=== PATIENT | female | born 1945 | race Caucasian/White ===

== ENCOUNTER 2018-09-17 12:01 | Inpatient (IN) | payer MEDICARE ==
[~2018-09-17] VITALS: Ht 175.3 cm; Wt 85.3 kg
[2018-09-17] VITALS (24 sets, daily range): BP systolic 85–142; BP diastolic 43–73
[2018-09-17] MEDS ORDERED: IV NS 0.9% 1,000 ML BAG IV ONE (12:30)
[2018-09-17 12:32] LABS: BILIRUBIN,URINE LARGE (NEGATIVE); BLOOD, URINE Large Ery/uL (NEGATIVE); COLOR,URINE Yellow (YELLOW); KETONES,URINE 15 (NEGATIVE); LEUKOCYTE ESTERASE ,URINE Small (NEGATIVE); NITRITE, URINE Negative (NEGATIVE); PH,URINE 5.5 (5.0-8.0); PROTEIN,URINE 100 mg/dl (NEGATIVE); UGLUCOSE >=1000 mg/dL (NEGATIVE)
[2018-09-17 12:34] LABS: BASOPHILS % (AUTO) 0.1 % (0.0-2.0); HEMATOCRIT 50 % (33-45); HEMOGLOBIN 15.3 g/dL (11.5-14.8); LYMPHOCYTES # (AUTO) 0.9 /CMM (0.8-4.8); LYMPHOCYTES % (AUTO) 3.2 % (20.0-44.0); MEAN CORPUSCULAR HGB CONC 31 g/dl (31.0-36.0); MEAN CORPUSCULAR VOLUME 95 fL (82-100); MONOCYTES # (AUTO) 0.9 /CMM (0.1-1.30); MONOCYTES % (AUTO) 3.2 % (2.0-12.0); NEUTROPHILS # (AUTO) 25.9 /CMM (1.8-8.9); NEUTROPHILS % (AUTO) 93.5 % (43.0-81.0); PLATELET COUNT (AUTO) 237 /CMM (150-450); RED BLOOD CELL COUNT(AUTO) 5.27 MIL/uL (4.0-5.2); WHITE BLOOD COUNT (AUTO) 27.7 K/uL (4.3-11.0)
[2018-09-17 12:35] LABS: APPEARANCE,URINE Turbid (CLEAR)
[2018-09-17 12:41] LABS: BACTERIA,URINE Many /HPF (None Seen); RBC,URINE 20-50 /HPF (0-2); SQUAMOUS EPITHELIAL CELL,UR Few /HPF (None Seen); WBC,URINE 50-80 /HPF (0-3)
[2018-09-17 12:55] LABS: ALANINE AMINOTRANSFERASE 22 U/L (12-78); ALBUMIN 2.3 g/dL (3.4-5.0); ALKALINE PHOSPHATASE 98 U/L (46-116); ASPARTATE AMINOTRANSFERASE 10 U/L (15-37); BILIRUBIN,DIRECT 0.5 mg/dL (0.0-0.2); BILIRUBIN,TOTAL 1.1 mg/dL (0.2-1.0); CALCIUM, SERUM 9.1 mg/dL (8.5-10.1); CARBON DIOXIDE 15 mmol/L (21-32); CHLORIDE 122 mmol/L (98-107); CREATININE 2.5 mg/dL (0.6-1.3); POTASSIUM 4.4 mmol/L (3.5-5.1); TOTAL PROTEIN, SERUM 7.5 g/dL (6.4-8.2)
[2018-09-17] MEDS ORDERED: PIPERACILLIN /TAZOBACTAM 3.375 G in IV D5W 50 ML IV ONE (13:00)
[2018-09-17] MEDS ORDERED: VANCOMYCIN 1 GM in IV D5W 250 ML IV ONE (13:00)
[2018-09-17 13:01] LABS: GLUCOSE 814 mg/dL (74-106); SODIUM SERUM 166 mmol/L (136-145); UREA NITROGEN, BLOOD 131 mg/dL (7-18)
[2018-09-17] MEDS ORDERED: IV LR 1000 ML 1,000 ML IV ONE (13:09)
[2018-09-17] MEDS ORDERED: INSULIN REGULAR, HUMAN 100 UNIT/ML 10 ML VIAL ONE (13:24)
[2018-09-17] MEDS ORDERED: INSULIN REGULAR, HUMAN 100 UNIT in IV NS 0.9% 99 ML IV ONE ×2 (13:30)
[2018-09-17] MEDS ORDERED: POTASSIUM CL. PREMIX PERIPHER. 50 ML ONE (13:40)
[2018-09-17] MEDS ORDERED: HYDR-4354 PO (13:44)
[2018-09-17] MEDS ORDERED: SERT100T PO (13:44)
[2018-09-17] MEDS ORDERED: INSU100I19 SQ (13:44)
[2018-09-17] MEDS ORDERED: LEVO100T PO (13:44)
[2018-09-17] MEDS ORDERED: RAMI2.5C2 PO (13:44)
[2018-09-17] MEDS: POTASSIUM CL. PREMIX PERIPHER. 50 ML IV SCH ×2 (13:45→15:16)
[2018-09-17] MEDS ORDERED: IV NS 0.9% 1,000 ML IV SCH (14:01)
[2018-09-17] MEDS ORDERED: ONDANSETRON HCL/PF 4 MG/2 ML VIAL IVP PRN (14:30)
[2018-09-17] MEDS ORDERED: ACETAMINOPHEN 650 MG/SUPP.RECT RC PRN (14:30)
[2018-09-17] MEDS ORDERED: FEE PK DOSING 1 MIN EA MC ONE (14:41)
[2018-09-17] MEDS: FAMOTIDINE/PF INJ 20 MG/2 ML VIAL IV SCH (15:16)
[2018-09-17] MEDS: BLOOD SUGAR DIAGNOSTIC 1 EACH STRIP IN SCH ×9 (15:30→23:12)
[2018-09-17] MEDS: MORPHINE SULFATE INJ 2 MG/ML DISP.SYRIN IV PRN (15:39)
[2018-09-17] MEDS ORDERED: INSULIN REGULAR, HUMAN 100 UNIT in IV NS 0.9% 99 ML IV PRN ×2 (16:00)
[2018-09-17 17:30] LABS: CALCIUM, SERUM 8.1 mg/dL (8.5-10.1); CARBON DIOXIDE 17 mmol/L (21-32); CREATININE 2.4 mg/dL (0.6-1.3); POTASSIUM 3.4 mmol/L (3.5-5.1)
[2018-09-17 17:36] LABS: CHLORIDE 127 mmol/L (98-107); GLUCOSE 518 mg/dL (74-106); SODIUM SERUM 165 mmol/L (136-145)
[2018-09-17 17:37] LABS: UREA NITROGEN, BLOOD 128 mg/dL (7-18)
[2018-09-17 17:39] LABS: MAGNESIUM 2.1 mg/dL (1.8-2.4); PHOSPHORUS 3.6 mg/dL (2.5-4.9)
[2018-09-17] MEDS ORDERED: PIPERACILLIN /TAZOBACTAM 3.375 G in IV D5W 100 ML IV SCH (18:00)
[2018-09-17] MEDS ORDERED: IV NS 0.9% 1,000 ML IV PRN (18:00)
[2018-09-17] MEDS ORDERED: PIPERACILLIN /TAZOBACTAM 3.375 G in IV D5W 50 ML IV SCH (18:00)
[2018-09-17] MEDS ORDERED: POTASSIUM CL. PREMIX PERIPHER. 50 ML IV SCH (18:03)
[2018-09-17] MEDS ORDERED: INSULIN REGULAR, HUMAN 100 UNIT/ML 3 ML VIAL ONE (21:15)
[2018-09-17 21:24] LABS: CALCIUM, SERUM 8.3 mg/dL (8.5-10.1); CARBON DIOXIDE 17 mmol/L (21-32); CREATININE 2.2 mg/dL (0.6-1.3); GLUCOSE 295 mg/dL (74-106); MAGNESIUM 2.1 mg/dL (1.8-2.4); PHOSPHORUS 2.7 mg/dL (2.5-4.9)
[2018-09-17 21:29] LABS: CHLORIDE 130 mmol/L (98-107); SODIUM SERUM 167 mmol/L (136-145); UREA NITROGEN, BLOOD 127 mg/dL (7-18)
[2018-09-17 22:55] LABS: ABG BASE EXCESS -5.5 mmol/L; ABG OXYGEN SATURATION 96.2 % (92.0-98.5); ABG PCO2 23.3 mmHg (35.0-45.0); ABG PH 7.462 (7.350-7.450); ABG PO2 84.3 mmHg (75.0-100.0); AaDO2 37.5 mmHg; COHb 0.7 % (0.5-1.5); MetHb 0.5 % (0.0-1.5); SITE, ABG Left Radial; VENT MODE, BG RA
[2018-09-17] MEDS ORDERED: IV 1/2NS 1000 ML 1,000 ML IV SCH (23:00)
[2018-09-18] VITALS (42 sets, daily range): BP systolic 91–119; BP diastolic 50–73
[2018-09-18] MEDS: BLOOD SUGAR DIAGNOSTIC 1 EACH STRIP IN SCH ×24 (00:04→23:11)
[2018-09-18 01:25] LABS: CALCIUM, SERUM 8.1 mg/dL (8.5-10.1); CARBON DIOXIDE 20 mmol/L (21-32); CREATININE 2.2 mg/dL (0.6-1.3); GLUCOSE 184 mg/dL (74-106); PHOSPHORUS 2.8 mg/dL (2.5-4.9); POTASSIUM 4.2 mmol/L (3.5-5.1)
[2018-09-18 01:31] LABS: CHLORIDE 132 mmol/L (98-107); SODIUM SERUM 169 mmol/L (136-145); UREA NITROGEN, BLOOD 125 mg/dL (7-18)
[2018-09-18] MEDS: IV D5/0.45 NACL 1,000 ML IV SCH ×2 (01:42→09:26)
[2018-09-18] MEDS: PIPERACILLIN /TAZOBACTAM 3.375 G in IV D5W 100 ML IV SCH ×2 (01:48→12:43)
[2018-09-18 04:30] LABS: BASOPHILS # (AUTO) 0.1 /CMM (0.0-0.2); BASOPHILS % (AUTO) 0.2 % (0.0-2.0); HEMATOCRIT 39 % (33-45); HEMOGLOBIN 12.7 g/dL (11.5-14.8); LYMPHOCYTES % (AUTO) 3.5 % (20.0-44.0); MEAN CORPUSCULAR HGB CONC 33 g/dl (31.0-36.0); MEAN CORPUSCULAR VOLUME 89 fL (82-100); MONOCYTES # (AUTO) 0.5 /CMM (0.1-1.30); MONOCYTES % (AUTO) 1.9 % (2.0-12.0); NEUTROPHILS # (AUTO) 26.8 /CMM (1.8-8.9); NEUTROPHILS % (AUTO) 94.4 % (43.0-81.0); PLATELET COUNT (AUTO) 181 /CMM (150-450); RED BLOOD CELL COUNT(AUTO) 4.38 MIL/uL (4.0-5.2); WHITE BLOOD COUNT (AUTO) 28.3 K/uL (4.3-11.0)
[2018-09-18 04:41] LABS: CALCIUM, SERUM 8.1 mg/dL (8.5-10.1); CARBON DIOXIDE 21 mmol/L (21-32); CREATININE 2.2 mg/dL (0.6-1.3); GLUCOSE 213 mg/dL (74-106); POTASSIUM 4.1 mmol/L (3.5-5.1)
[2018-09-18] MEDS: INSULIN REGULAR, HUMAN 100 UNIT in IV NS 0.9% 99 ML IV PRN ×2 (04:47)
[2018-09-18 04:57] LABS: THYROID STIMULATING HORMONE 4.292 uIU/mL (0.358-3.74)
[2018-09-18 05:16] LABS: CHLORIDE 132 mmol/L (98-107); SODIUM SERUM 167 mmol/L (136-145); UREA NITROGEN, BLOOD 124 mg/dL (7-18)
[2018-09-18] MEDS: FAMOTIDINE/PF INJ 20 MG/2 ML VIAL IV SCH ×2 (09:26→18:26)
[2018-09-18] MEDS: CLOTRIMAZOLE 1% 15 GM TUBE TP SCH ×2 (09:27→18:26)
[2018-09-18 11:08] LABS: CALCIUM, SERUM 7.6 mg/dL (8.5-10.1); CARBON DIOXIDE 19 mmol/L (21-32); CREATININE 2.2 mg/dL (0.6-1.3); GLUCOSE 199 mg/dL (74-106); PHOSPHORUS 3.1 mg/dL (2.5-4.9); POTASSIUM 3.9 mmol/L (3.5-5.1)
[2018-09-18 11:11] LABS: CHLORIDE 133 mmol/L (98-107); SODIUM SERUM 167 mmol/L (136-145); UREA NITROGEN, BLOOD 123 mg/dL (7-18)
[2018-09-18] MEDS: VANCOMYCIN 0.75 GM in IV D5W 250 ML IV SCH (12:43)
[2018-09-18] MEDS: IV D5W 1,000 ML IV PRN ×2 (15:02→23:11)
[2018-09-18 15:05] LABS: CALCIUM, SERUM 7.1 mg/dL (8.5-10.1); CARBON DIOXIDE 19 mmol/L (21-32); CHLORIDE 125 mmol/L (98-107); CREATININE 2.2 mg/dL (0.6-1.3); MAGNESIUM 1.8 mg/dL (1.8-2.4); POTASSIUM 3.7 mmol/L (3.5-5.1)
[2018-09-18 15:06] LABS: SODIUM SERUM 158 mmol/L (136-145)
[2018-09-18 15:07] LABS: GLUCOSE 423 mg/dL (74-106); UREA NITROGEN, BLOOD 114 mg/dL (7-18)
[2018-09-18 17:51] LABS: CALCIUM, SERUM 7.5 mg/dL (8.5-10.1); CARBON DIOXIDE 21 mmol/L (21-32); CREATININE 2.1 mg/dL (0.6-1.3); GLUCOSE 235 mg/dL (74-106); PHOSPHORUS 3.1 mg/dL (2.5-4.9); POTASSIUM 3.8 mmol/L (3.5-5.1)
[2018-09-18 17:54] LABS: SODIUM SERUM 165 mmol/L (136-145)
[2018-09-18 17:55] LABS: CHLORIDE 129 mmol/L (98-107); UREA NITROGEN, BLOOD 118 mg/dL (7-18)
[2018-09-18 21:22] LABS: POTASSIUM 3.6 mmol/L (3.5-5.1); SODIUM SERUM 163 mmol/L (136-145)
[2018-09-18 21:23] LABS: CALCIUM, SERUM 7.6 mg/dL (8.5-10.1); CARBON DIOXIDE 21 mmol/L (21-32); CHLORIDE 129 mmol/L (98-107); CREATININE 1.9 mg/dL (0.6-1.3); GLUCOSE 245 mg/dL (74-106); UREA NITROGEN, BLOOD 113 mg/dL (7-18)
[2018-09-18 21:24] LABS: PHOSPHORUS 3.2 mg/dL (2.5-4.9)
[2018-09-19] VITALS (24 sets, daily range): BP systolic 93–126; BP diastolic 38–77
[2018-09-19] MEDS: BLOOD SUGAR DIAGNOSTIC 1 EACH STRIP IN SCH ×11 (00:13→10:28)
[2018-09-19] MEDS: PIPERACILLIN /TAZOBACTAM 3.375 G in IV D5W 100 ML IV SCH ×2 (00:54→12:25)
[2018-09-19 05:06] LABS: CALCIUM, SERUM 7.3 mg/dL (8.5-10.1); CARBON DIOXIDE 22 mmol/L (21-32); GLUCOSE 240 mg/dL (74-106); POTASSIUM 3.5 mmol/L (3.5-5.1)
[2018-09-19 05:07] LABS: ALANINE AMINOTRANSFERASE 18 U/L (12-78); ALBUMIN 1.6 g/dL (3.4-5.0); ALKALINE PHOSPHATASE 69 U/L (46-116); ASPARTATE AMINOTRANSFERASE 18 U/L (15-37); BILIRUBIN,TOTAL 0.6 mg/dL (0.2-1.0); CREATININE 1.8 mg/dL (0.6-1.3); MAGNESIUM 1.8 mg/dL (1.8-2.4); PHOSPHORUS 2.9 mg/dL (2.5-4.9); TOTAL PROTEIN, SERUM 5.5 g/dL (6.4-8.2)
[2018-09-19 05:09] LABS: CHLORIDE 128 mmol/L (98-107); RED BLOOD CELL COUNT(AUTO) 3.91 MIL/uL (4.0-5.2); SODIUM SERUM 160 mmol/L (136-145); WHITE BLOOD COUNT (AUTO) 21.9 K/uL (4.3-11.0)
[2018-09-19 05:10] LABS: BASOPHILS % (AUTO) 0.1 % (0.0-2.0); HEMATOCRIT 35 % (33-45); HEMOGLOBIN 11.3 g/dL (11.5-14.8); LYMPHOCYTES % (AUTO) 4.3 % (20.0-44.0); MEAN CORPUSCULAR HGB CONC 32 g/dl (31.0-36.0); MEAN CORPUSCULAR VOLUME 89 fL (82-100); MONOCYTES % (AUTO) 3.4 % (2.0-12.0); NEUTROPHILS % (AUTO) 92.2 % (43.0-81.0); PLATELET COUNT (AUTO) 111 /CMM (150-450); UREA NITROGEN, BLOOD 100 mg/dL (7-18)
[2018-09-19 05:28] LABS: CREATININE, URINE 50.4 MG/DL (30.0-125.0)
[2018-09-19 05:52] LABS: URINE TOTAL PROTEIN 64.5 mg/dL (0-11.9)
[2018-09-19 06:40] LABS: APPEARANCE,URINE SLIGHTLY CLOUDY (CLEAR); BLOOD, URINE 3+ Ery/uL (NEGATIVE); COLOR,URINE YELLOW (YELLOW); PH,URINE 5.5 (5.0-8.0); PROTEIN,URINE 1+ mg/dl (NEGATIVE); UGLUCOSE NEGATIVE (NEGATIVE)
[2018-09-19 06:41] LABS: BILIRUBIN,URINE NEGATIVE (NEGATIVE); KETONES,URINE NEGATIVE (NEGATIVE); LEUKOCYTE ESTERASE ,URINE 1+ (NEGATIVE); NITRITE, URINE NEGATIVE (NEGATIVE); UROBILINOGEN,URINE 0.2 EU/dL (0.2)
[2018-09-19 06:42] LABS: BACTERIA,URINE Few /HPF (None Seen); SQUAMOUS EPITHELIAL CELL,UR Few /HPF (None Seen); URIC ACID CRYSTALS,URINE Moderate /HPF (None Seen); WBC,URINE 21-50 /HPF (0-3)
[2018-09-19] MEDS: IV D5W 1,000 ML IV PRN ×2 (06:49→15:00)
[2018-09-19] MEDS: CLOTRIMAZOLE 1% 15 GM TUBE TP SCH ×2 (08:31→17:16)
[2018-09-19] MEDS: FAMOTIDINE/PF INJ 20 MG/2 ML VIAL IV SCH ×2 (08:31→17:15)
[2018-09-19] MEDS: INSULIN REGULAR, HUMAN 100 UNIT in IV NS 0.9% 99 ML IV PRN ×2 (08:57)
[2018-09-19] MEDS ORDERED: DEXTROSE 50%-WATER 50 ML DISP.SYRIN IV PRN (09:00)
[2018-09-19] MEDS ORDERED: INSULIN GLARGINE, 100 UNIT/ML CARTRIDGE SQ ONE (09:30)
[2018-09-19 12:15] LABS: EOSINOPHIL,URINE None Seen
[2018-09-19] MEDS: BLOOD SUGAR DIAGNOSTIC 1 EACH STRIP VI SCH ×2 (12:25→17:22)
[2018-09-19] MEDS: VANCOMYCIN 0.75 GM in IV D5W 250 ML IV SCH ×2 (12:31→14:13)
[2018-09-19] MEDS: INSULIN REGULAR, HUMAN 100 UNIT/ML 3 ML VIAL SQ PRN ×2 (12:31→17:20)
[2018-09-19 13:10] LABS: ALANINE AMINOTRANSFERASE 19 U/L (12-78); ALBUMIN 1.7 g/dL (3.4-5.0); ALKALINE PHOSPHATASE 75 U/L (46-116); ASPARTATE AMINOTRANSFERASE 19 U/L (15-37); BILIRUBIN,TOTAL 0.7 mg/dL (0.2-1.0); CALCIUM, SERUM 7.5 mg/dL (8.5-10.1); CARBON DIOXIDE 18 mmol/L (21-32); CHLORIDE 125 mmol/L (98-107); CREATININE 1.7 mg/dL (0.6-1.3); GLUCOSE 253 mg/dL (74-106); POTASSIUM 3.6 mmol/L (3.5-5.1); TOTAL PROTEIN, SERUM 5.5 g/dL (6.4-8.2)
[2018-09-19 13:13] LABS: SODIUM SERUM 158 mmol/L (136-145); UREA NITROGEN, BLOOD 88 mg/dL (7-18)
[2018-09-19] MEDS ORDERED: PIPERACILLIN /TAZOBACTAM 3.375 G in IV D5W 100 ML IV SCH (21:00)
[2018-09-19] MEDS: CEFAZOLIN 1 GM in IV D5W 50 ML IV SCH (21:32)
[2018-09-19] MEDS: INSULIN GLARGINE, 100 UNIT/ML CARTRIDGE SQ SCH (22:32)
[2018-09-20] VITALS (19 sets, daily range): BP systolic 92–124; BP diastolic 47–66
[2018-09-20] MEDS: *INSULIN REGULAR(HUMULIN R)HUM 100 UNIT/ML VIAL SQ PRN ×2 (00:38→06:08)
[2018-09-20] MEDS: BLOOD SUGAR DIAGNOSTIC 1 EACH STRIP VI SCH ×4 (00:38→18:28)
[2018-09-20] MEDS: MORPHINE SULFATE INJ 2 MG/ML DISP.SYRIN IV PRN (00:39)
[2018-09-20] MEDS: IV D5W 1,000 ML IV PRN ×2 (01:14→08:51)
[2018-09-20] MEDS: CEFAZOLIN 1 GM in IV D5W 50 ML IV SCH ×3 (04:27→21:12)
[2018-09-20 04:58] LABS: BASOPHILS % (AUTO) 0.1 % (0.0-2.0); EOSINOPHILS % (AUTO) 0.3 % (0.0-6.0); HEMATOCRIT 31 % (33-45); HEMOGLOBIN 10.2 g/dL (11.5-14.8); LYMPHOCYTES # (AUTO) 0.8 /CMM (0.8-4.8); LYMPHOCYTES % (AUTO) 5.3 % (20.0-44.0); MEAN CORPUSCULAR HGB CONC 33 g/dl (31.0-36.0); MEAN CORPUSCULAR VOLUME 90 fL (82-100); MONOCYTES # (AUTO) 0.8 /CMM (0.1-1.30); MONOCYTES % (AUTO) 5.2 % (2.0-12.0); NEUTROPHILS # (AUTO) 13.1 /CMM (1.8-8.9); NEUTROPHILS % (AUTO) 89.1 % (43.0-81.0); PLATELET COUNT (AUTO) 81 /CMM (150-450); RED BLOOD CELL COUNT(AUTO) 3.47 MIL/uL (4.0-5.2); WHITE BLOOD COUNT (AUTO) 14.8 K/uL (4.3-11.0)
[2018-09-20 05:26] LABS: CALCIUM, SERUM 7.1 mg/dL (8.5-10.1); CARBON DIOXIDE 22 mmol/L (21-32); CHLORIDE 120 mmol/L (98-107); CREATININE 1.3 mg/dL (0.6-1.3); GLUCOSE 317 mg/dL (74-106); MAGNESIUM 1.7 mg/dL (1.8-2.4); PHOSPHORUS 2.2 mg/dL (2.5-4.9); POTASSIUM 3.2 mmol/L (3.5-5.1); SODIUM SERUM 153 mmol/L (136-145); UREA NITROGEN, BLOOD 62 mg/dL (7-18)
[2018-09-20] MEDS ORDERED: CEPHALEXIN MONOHYDRATE 500 MG CAPSULE PO ONE (06:24)
[2018-09-20 06:36] LABS: LYMPHOCYTES % (MANUAL) 3 % (16-48); MONOCYTES % (MANUAL) 4 % (0-11.0); NEUTROPHILS % (MANUAL) 93 (42-76)
[2018-09-20] MEDS: CLOTRIMAZOLE 1% 15 GM TUBE TP SCH ×2 (08:30→16:20)
[2018-09-20] MEDS: FAMOTIDINE/PF INJ 20 MG/2 ML VIAL IV SCH ×2 (08:30→16:19)
[2018-09-20] MEDS: POTASSIUM CL. PREMIX PERIPHER. 50 ML IV SCH ×4 (09:28→12:48)
[2018-09-20] MEDS: Magnesium 1GM/D5W 100ML PREMIX 100 ML IV SCH ×4 (10:13→14:54)
[2018-09-20] MEDS ORDERED: PNEUMOCOCCAL 23-VAL P-SAC VAC 0.5 ML VIAL SQ ONE (12:00)
[2018-09-20] MEDS: INSULIN REGULAR, HUMAN 100 UNIT/ML 3 ML VIAL SQ PRN ×2 (12:09→18:26)
[2018-09-20] MEDS ORDERED: Magnesium 1GM/D5W 100ML PREMIX 1 G in PREMIX 1 EA IV SCH (13:00)
[2018-09-20] MEDS: VANCOMYCIN 0.75 GM in IV D5W 250 ML IV SCH (13:46)
[2018-09-20] MEDS: Potassium Chloride 40 MEQ in IV D5W 1,000 ML IV PRN (14:21)
[2018-09-20] MEDS: POTASSIUM PHOSPHATE MM 7.5 MMOL in IV D5W 100 ML IV SCH ×2 (14:34→17:12)
[2018-09-20] MEDS: INSULIN GLARGINE, 100 UNIT/ML CARTRIDGE SQ SCH (21:22)
[2018-09-21] VITALS (7 sets, daily range): BP systolic 95–116; BP diastolic 43–65
[2018-09-21] MEDS: BLOOD SUGAR DIAGNOSTIC 1 EACH STRIP VI SCH ×5 (00:35→23:21)
[2018-09-21] MEDS: *INSULIN REGULAR(HUMULIN R)HUM 100 UNIT/ML VIAL SQ PRN ×3 (00:46→23:21)
[2018-09-21] MEDS: Potassium Chloride 40 MEQ in IV D5W 1,000 ML IV PRN (02:49)
[2018-09-21] MEDS: CEFAZOLIN 1 GM in IV D5W 50 ML IV SCH ×2 (04:51→14:20)
[2018-09-21 06:59] LABS: BASOPHILS % (AUTO) 0.1 % (0.0-2.0); EOSINOPHILS % (AUTO) 0.9 % (0.0-6.0); HEMATOCRIT 31 % (33-45); LYMPHOCYTES # (AUTO) 0.7 /CMM (0.8-4.8); LYMPHOCYTES % (AUTO) 6.3 % (20.0-44.0); MEAN CORPUSCULAR HGB CONC 32 g/dl (31.0-36.0); MEAN CORPUSCULAR VOLUME 89 fL (82-100); MONOCYTES # (AUTO) 0.8 /CMM (0.1-1.30); MONOCYTES % (AUTO) 7.2 % (2.0-12.0); NEUTROPHILS % (AUTO) 85.5 % (43.0-81.0); PLATELET COUNT (AUTO) 82 /CMM (150-450); RED BLOOD CELL COUNT(AUTO) 3.46 MIL/uL (4.0-5.2); WHITE BLOOD COUNT (AUTO) 11.7 K/uL (4.3-11.0)
[2018-09-21 07:16] LABS: CALCIUM, SERUM 6.7 mg/dL (8.5-10.1); CARBON DIOXIDE 20 mmol/L (21-32); CHLORIDE 112 mmol/L (98-107); CREATININE 0.9 mg/dL (0.6-1.3); MAGNESIUM 2.2 mg/dL (1.8-2.4); POTASSIUM 5.5 mmol/L (3.5-5.1); SODIUM SERUM 140 mmol/L (136-145); UREA NITROGEN, BLOOD 30 mg/dL (7-18)
[2018-09-21 07:20] LABS: GLUCOSE 351 mg/dL (74-106)
[2018-09-21 08:30] LABS: LYMPHOCYTES % (MANUAL) 3 % (16-48); NEUTROPHILS % (MANUAL) 88 (42-76)
[2018-09-21 08:31] LABS: EOSINOPHILS % (MANUAL) 2 % (0-4); MONOCYTES % (MANUAL) 7 % (0-11.0)
[2018-09-21] MEDS: FAMOTIDINE/PF INJ 20 MG/2 ML VIAL IV SCH ×2 (09:05→17:28)
[2018-09-21] MEDS: CLOTRIMAZOLE 1% 15 GM TUBE TP SCH ×2 (09:06→17:29)
[2018-09-21] MEDS ORDERED: IV D5W 1,000 ML IV PRN (11:12)
[2018-09-21] MEDS ORDERED: K PHOS NEUTRAL 250 MG TABLET PO ONE (12:00)
[2018-09-21] MEDS: MORPHINE SULFATE INJ 2 MG/ML DISP.SYRIN IV PRN (12:18)
[2018-09-21] MEDS: INSULIN REGULAR, HUMAN 100 UNIT/ML 3 ML VIAL SQ PRN ×2 (12:22→17:37)
[2018-09-21] MEDS ORDERED: IV NS 0.9% 250 ML IV ONE (12:30)
[2018-09-21] MEDS: VANCOMYCIN 0.75 GM in IV D5W 250 ML IV SCH (13:12)
[2018-09-21] MEDS: LACTOBACILLUS RHAMNOSUS GG 1 EACH CAP.SPRINK PO SCH (17:28)
[2018-09-21] MEDS: LEVOFLOXACIN (750 MG) 750 MG TABLET PO SCH (20:00)
[2018-09-21] MEDS: DOXYCYCLINE HYCLATE (100 MG) 100 MG TABLET PO SCH (21:20)
[2018-09-21] MEDS: INSULIN GLARGINE, 100 UNIT/ML CARTRIDGE SQ SCH (21:33)
[2018-09-22 04:00] VITALS: BP 106/54
[2018-09-22] MEDS: BLOOD SUGAR DIAGNOSTIC 1 EACH STRIP VI SCH ×3 (05:38→17:58)
[2018-09-22] MEDS: INSULIN REGULAR, HUMAN 100 UNIT/ML 3 ML VIAL SQ PRN ×2 (05:41→18:05)
[2018-09-22 06:15] LABS: CALCIUM, SERUM 6.9 mg/dL (8.5-10.1); CARBON DIOXIDE 21 mmol/L (21-32); CHLORIDE 111 mmol/L (98-107); CREATININE 0.8 mg/dL (0.6-1.3); GLUCOSE 201 mg/dL (74-106); POTASSIUM 3.5 mmol/L (3.5-5.1); SODIUM SERUM 143 mmol/L (136-145); UREA NITROGEN, BLOOD 17 mg/dL (7-18)
[2018-09-22 06:23] LABS: EOSINOPHILS % (AUTO) 0.9 % (0.0-6.0); HEMATOCRIT 29 % (33-45); HEMOGLOBIN 9.7 g/dL (11.5-14.8); LYMPHOCYTES # (AUTO) 0.6 /CMM (0.8-4.8); LYMPHOCYTES % (AUTO) 6.8 % (20.0-44.0); MEAN CORPUSCULAR HGB CONC 34 g/dl (31.0-36.0); MEAN CORPUSCULAR VOLUME 88 fL (82-100); MONOCYTES # (AUTO) 1.1 /CMM (0.1-1.30); MONOCYTES % (AUTO) 11.2 % (2.0-12.0); NEUTROPHILS # (AUTO) 7.7 /CMM (1.8-8.9); NEUTROPHILS % (AUTO) 81.1 % (43.0-81.0); PLATELET COUNT (AUTO) 111 /CMM (150-450); RED BLOOD CELL COUNT(AUTO) 3.27 MIL/uL (4.0-5.2); WHITE BLOOD COUNT (AUTO) 9.5 K/uL (4.3-11.0)
[2018-09-22 08:00] VITALS: BP 111/57
[2018-09-22] MEDS: DOXYCYCLINE HYCLATE (100 MG) 100 MG TABLET PO SCH ×2 (08:35→20:10)
[2018-09-22] MEDS: FAMOTIDINE/PF INJ 20 MG/2 ML VIAL IV SCH ×2 (08:35→18:06)
[2018-09-22] MEDS: LACTOBACILLUS RHAMNOSUS GG 1 EACH CAP.SPRINK PO SCH ×2 (08:36→18:05)
[2018-09-22] MEDS: *INSULIN REGULAR(HUMULIN R)HUM 100 UNIT/ML VIAL SQ PRN ×2 (08:40→12:19)
[2018-09-22] MEDS: Z GUARD REMEDY 2 OZ OINT TP PRN (08:42)
[2018-09-22] MEDS: CLOTRIMAZOLE 1% 15 GM TUBE TP SCH ×2 (10:41→18:02)
[2018-09-22] MEDS ORDERED: CT SWABBABLE VALVE TRANS SET 1 EA INFUS.SET MC ONE (15:32)
[2018-09-22] MEDS ORDERED: IOHEXOL-300 100 ML VIAL IV ONE (15:32)
[2018-09-22] MEDS ORDERED: IV NS 0.9% 250 ML IV ONE (15:32)
[2018-09-22 16:00] VITALS: BP 121/60
[2018-09-22 17:43] VITALS: BP 111/57
[2018-09-22 20:00] VITALS: BP 123/55
[2018-09-22] MEDS: LEVOFLOXACIN (750 MG) 750 MG TABLET PO SCH (20:11)
[2018-09-22] MEDS: INSULIN GLARGINE, 100 UNIT/ML CARTRIDGE SQ SCH (22:17)
[2018-09-23] MEDS: BLOOD SUGAR DIAGNOSTIC 1 EACH STRIP VI SCH ×4 (00:10→18:06)
[2018-09-23] MEDS: INSULIN REGULAR, HUMAN 100 UNIT/ML 3 ML VIAL SQ PRN ×5 (00:17→23:58)
[2018-09-23] MEDS: ACETAMINOPHEN 325 MG TABLET PO PRN ×2 (01:38→17:12)
[2018-09-23 04:00] VITALS: BP 111/60
[2018-09-23 06:47] LABS: CALCIUM, SERUM 7.6 mg/dL (8.5-10.1); CARBON DIOXIDE 23 mmol/L (21-32); CHLORIDE 113 mmol/L (98-107); CREATININE 0.8 mg/dL (0.6-1.3); GLUCOSE 148 mg/dL (74-106); POTASSIUM 3.4 mmol/L (3.5-5.1); SODIUM SERUM 146 mmol/L (136-145); UREA NITROGEN, BLOOD 13 mg/dL (7-18)
[2018-09-23 08:00] VITALS: BP 108/54
[2018-09-23] MEDS: LACTOBACILLUS RHAMNOSUS GG 1 EACH CAP.SPRINK PO SCH ×2 (08:36→17:12)
[2018-09-23] MEDS: CLOTRIMAZOLE 1% 15 GM TUBE TP SCH ×2 (08:36→17:51)
[2018-09-23] MEDS: FAMOTIDINE/PF INJ 20 MG/2 ML VIAL IV SCH ×2 (08:36→17:12)
[2018-09-23] MEDS: DOXYCYCLINE HYCLATE (100 MG) 100 MG TABLET PO SCH ×2 (08:36→21:06)
[2018-09-23] MEDS ORDERED: POTASSIUM CHLORIDE 20 MEQ TAB.PRT.SR PO SCH (10:00)
[2018-09-23] MEDS: MORPHINE SULFATE INJ 2 MG/ML DISP.SYRIN IV PRN (14:16)
[2018-09-23] MEDS ORDERED: POTASSIUM CHLORIDE 20 MEQ TAB.PRT.SR PO ONE (15:30)
[2018-09-23 16:00] VITALS: BP 107/39
[2018-09-23] MEDS: LEVOFLOXACIN 750 MG /D5W 150ML 750 MG in PREMIX 1 EA IV SCH (19:26)
[2018-09-23 20:00] VITALS: BP 121/65
[2018-09-23] MEDS: Potassium Chloride 40 MEQ in IV D5W 1,000 ML IV PRN (21:06)
[2018-09-23] MEDS: INSULIN GLARGINE, 100 UNIT/ML CARTRIDGE SQ SCH (21:07)
[2018-09-24] MEDS: ACETAMINOPHEN 325 MG TABLET PO PRN (00:02)
[2018-09-24] MEDS: BLOOD SUGAR DIAGNOSTIC 1 EACH STRIP VI SCH ×5 (00:04→23:03)
[2018-09-24] MEDS: MORPHINE SULFATE INJ 2 MG/ML DISP.SYRIN IV PRN ×2 (04:51→11:57)
[2018-09-24] MEDS: INSULIN REGULAR, HUMAN 100 UNIT/ML 3 ML VIAL SQ PRN ×3 (06:15→17:49)
[2018-09-24 06:50] LABS: CARBON DIOXIDE 24 mmol/L (21-32); CHLORIDE 105 mmol/L (98-107); CREATININE 0.8 mg/dL (0.6-1.3); GLUCOSE 217 mg/dL (74-106); POTASSIUM 3.8 mmol/L (3.5-5.1); SODIUM SERUM 137 mmol/L (136-145); UREA NITROGEN, BLOOD 9 mg/dL (7-18)
[2018-09-24 08:00] VITALS: BP 113/58
[2018-09-24] MEDS: DOXYCYCLINE HYCLATE (100 MG) 100 MG TABLET PO SCH ×2 (08:52→20:00)
[2018-09-24] MEDS: LACTOBACILLUS RHAMNOSUS GG 1 EACH CAP.SPRINK PO SCH ×2 (08:52→17:51)
[2018-09-24] MEDS: FAMOTIDINE/PF INJ 20 MG/2 ML VIAL IV SCH ×2 (08:53→17:51)
[2018-09-24] MEDS: CLOTRIMAZOLE 1% 15 GM TUBE TP SCH ×2 (09:01→17:51)
[2018-09-24] MEDS: GLUCERNA SHAKE 237 ML CAN PO SCH ×2 (12:49→17:51)
[2018-09-24 16:00] VITALS: BP 122/58
[2018-09-24] MEDS: Potassium Chloride 40 MEQ in IV D5W 1,000 ML IV PRN (16:31)
[2018-09-24] MEDS: LEVOFLOXACIN 750 MG /D5W 150ML 750 MG in PREMIX 1 EA IV SCH (18:53)
[2018-09-24 20:00] VITALS: BP 120/54
[2018-09-24 20:39] VITALS: BP 120/54
[2018-09-24] MEDS: INSULIN GLARGINE, 100 UNIT/ML CARTRIDGE SQ SCH (22:51)
[2018-09-24] MEDS: *INSULIN REGULAR(HUMULIN R)HUM 100 UNIT/ML VIAL SQ PRN (23:02)
[2018-09-25] MEDS: MORPHINE SULFATE INJ 2 MG/ML DISP.SYRIN IV PRN ×2 (01:12→10:00)
[2018-09-25] MEDS: BLOOD SUGAR DIAGNOSTIC 1 EACH STRIP VI SCH ×3 (05:56→17:29)
[2018-09-25] MEDS: INSULIN REGULAR, HUMAN 100 UNIT/ML 3 ML VIAL SQ PRN ×2 (05:58→23:40)
[2018-09-25] MEDS: Potassium Chloride 40 MEQ in IV D5W 1,000 ML IV PRN (06:10)
[2018-09-25 07:10] LABS: CALCIUM, SERUM 7.5 mg/dL (8.5-10.1); CARBON DIOXIDE 24 mmol/L (21-32); CHLORIDE 101 mmol/L (98-107); CREATININE 0.7 mg/dL (0.6-1.3); GLUCOSE 251 mg/dL (74-106); POTASSIUM 4.1 mmol/L (3.5-5.1); SODIUM SERUM 134 mmol/L (136-145); UREA NITROGEN, BLOOD 8 mg/dL (7-18)
[2018-09-25 08:00] VITALS: BP 127/63
[2018-09-25] MEDS: GLUCERNA SHAKE 237 ML CAN PO SCH ×3 (08:18→17:25)
[2018-09-25] MEDS: FAMOTIDINE/PF INJ 20 MG/2 ML VIAL IV SCH (08:27)
[2018-09-25] MEDS: DOXYCYCLINE HYCLATE (100 MG) 100 MG TABLET PO SCH ×2 (08:27→20:41)
[2018-09-25] MEDS: LACTOBACILLUS RHAMNOSUS GG 1 EACH CAP.SPRINK PO SCH ×2 (08:27→17:25)
[2018-09-25] MEDS: CLOTRIMAZOLE 1% 15 GM TUBE TP SCH ×2 (08:28→17:29)
[2018-09-25] MEDS ORDERED: LIDOCAINE 2%-EPI 1:100,000 30 ML VIAL TP ONE (11:00)
[2018-09-25] MEDS: *INSULIN REGULAR(HUMULIN R)HUM 100 UNIT/ML VIAL SQ PRN ×2 (12:15→17:31)
[2018-09-25 16:00] VITALS: BP 108/48
[2018-09-25 20:00] VITALS: BP 113/63
[2018-09-25] MEDS: LEVOFLOXACIN (750 MG) 750 MG TABLET PO SCH (20:06)
[2018-09-25] MEDS: INSULIN GLARGINE, 100 UNIT/ML CARTRIDGE SQ SCH (21:05)
[2018-09-26] MEDS: BLOOD SUGAR DIAGNOSTIC 1 EACH STRIP VI SCH ×4 (00:19→17:42)
[2018-09-26 04:00] VITALS: BP 130/60
[2018-09-26] MEDS: INSULIN REGULAR, HUMAN 100 UNIT/ML 3 ML VIAL SQ PRN (05:38)
[2018-09-26 07:10] LABS: CALCIUM, SERUM 7.9 mg/dL (8.5-10.1); CARBON DIOXIDE 27 mmol/L (21-32); CHLORIDE 103 mmol/L (98-107); CREATININE 0.7 mg/dL (0.6-1.3); GLUCOSE 217 mg/dL (74-106); POTASSIUM 4.1 mmol/L (3.5-5.1); SODIUM SERUM 137 mmol/L (136-145); UREA NITROGEN, BLOOD 10 mg/dL (7-18)
[2018-09-26 08:00] VITALS: BP_SYST 110; BP_SYST 140; BP_DIAS 56; BP_DIAS 80
[2018-09-26] MEDS: GLUCERNA SHAKE 237 ML CAN PO SCH ×3 (08:28→17:00)
[2018-09-26] MEDS: DOXYCYCLINE HYCLATE (100 MG) 100 MG TABLET PO SCH ×2 (09:07→20:57)
[2018-09-26] MEDS: LACTOBACILLUS RHAMNOSUS GG 1 EACH CAP.SPRINK PO SCH ×2 (09:07→18:08)
[2018-09-26] MEDS ORDERED: SILVER NITRATE APPLICATOR 1 EA BOX TP STA (10:34)
[2018-09-26] MEDS: MORPHINE SULFATE INJ 2 MG/ML DISP.SYRIN IV PRN (10:48)
[2018-09-26] MEDS: CLOTRIMAZOLE 1% 15 GM TUBE TP SCH ×2 (10:52→17:34)
[2018-09-26] MEDS: *INSULIN REGULAR(HUMULIN R)HUM 100 UNIT/ML VIAL SQ PRN (12:28)
[2018-09-26 16:00] VITALS: BP_SYST 118; BP_SYST 99; BP_DIAS 50; BP_DIAS 66
[2018-09-26] MEDS: Z GUARD REMEDY 2 OZ OINT TP PRN (17:59)
[2018-09-26 20:00] VITALS: BP 100/50
[2018-09-26] MEDS: LEVOFLOXACIN (750 MG) 750 MG TABLET PO SCH (20:57)
[2018-09-26] MEDS: INSULIN GLARGINE, 100 UNIT/ML CARTRIDGE SQ SCH (22:03)
[2018-09-27] MEDS: BLOOD SUGAR DIAGNOSTIC 1 EACH STRIP VI SCH ×3 (00:26→11:56)
[2018-09-27] MEDS: *INSULIN REGULAR(HUMULIN R)HUM 100 UNIT/ML VIAL SQ PRN ×2 (00:30→12:01)
[2018-09-27] MEDS: INSULIN REGULAR, HUMAN 100 UNIT/ML 3 ML VIAL SQ PRN (06:04)
[2018-09-27 06:41] LABS: BASOPHILS % (AUTO) 0.4 % (0.0-2.0); HEMATOCRIT 31 % (33-45); HEMOGLOBIN 10.3 g/dL (11.5-14.8); LYMPHOCYTES # (AUTO) 0.8 /CMM (0.8-4.8); MEAN CORPUSCULAR HGB CONC 34 g/dl (31.0-36.0); MEAN CORPUSCULAR VOLUME 87 fL (82-100); MONOCYTES # (AUTO) 0.7 /CMM (0.1-1.30); MONOCYTES % (AUTO) 9.6 % (2.0-12.0); NEUTROPHILS # (AUTO) 5.4 /CMM (1.8-8.9); PLATELET COUNT (AUTO) 333 /CMM (150-450); RED BLOOD CELL COUNT(AUTO) 3.55 MIL/uL (4.0-5.2)
[2018-09-27 07:00] LABS: CALCIUM, SERUM 7.6 mg/dL (8.5-10.1); CARBON DIOXIDE 28 mmol/L (21-32); CHLORIDE 101 mmol/L (98-107); CREATININE 0.7 mg/dL (0.6-1.3); GLUCOSE 182 mg/dL (74-106); MAGNESIUM 1.6 mg/dL (1.8-2.4); PHOSPHORUS 3.5 mg/dL (2.5-4.9); SODIUM SERUM 137 mmol/L (136-145); UREA NITROGEN, BLOOD 12 mg/dL (7-18)
[2018-09-27 08:00] VITALS: BP_SYST 114; BP_SYST 97; BP_DIAS 52; BP_DIAS 64
[2018-09-27] MEDS: DOXYCYCLINE HYCLATE (100 MG) 100 MG TABLET PO SCH (09:18)
[2018-09-27] MEDS: LACTOBACILLUS RHAMNOSUS GG 1 EACH CAP.SPRINK PO SCH (09:18)
[2018-09-27] MEDS: GLUCERNA SHAKE 237 ML CAN PO SCH ×2 (09:21→12:18)
[2018-09-27] MEDS: CLOTRIMAZOLE 1% 15 GM TUBE TP SCH (09:22)
[2018-09-27] MEDS ORDERED: LEVO750T21 PO (09:56)
[2018-09-27] MEDS ORDERED: CLOT15CR35 TP (09:56)
[2018-09-27] MEDS ORDERED: LACT1CAP72 PO (09:56)
[2018-09-27] MEDS ORDERED: DOXY100T2 PO (09:56)
[2018-09-27] MEDS ORDERED: NUT.237L45 PO (09:56)
[2018-09-27] MEDS: Magnesium 1GM/D5W 100ML PREMIX 100 ML IV SCH ×3 (10:15→12:22)
[2018-09-27] MEDS: MORPHINE SULFATE INJ 2 MG/ML DISP.SYRIN IV PRN (11:14)
== END 2018-09-27 15:30 | DRG 853 ==
LOC: EDBD 12:01 → ER 12:01 → ICU 14:12 → TELE-TD 09-20 16:40 → MEDSG1 09-21 12:24
PROVIDERS: ADMIT Registered Nurse; ATTEND Internal Medicine
PROC: 02HV33Z Insertion of Infusion Device into Superior Vena Cava, Percutaneous Approach (ICD-10-PCS; 2018-09-17)
PROC: B548ZZA Ultrasonography of Superior Vena Cava, Guidance (ICD-10-PCS; 2018-09-17)
PROC: 0JBL0ZZ Excision of Right Upper Leg Subcutaneous Tissue and Fascia, Open Approach (ICD-10-PCS; 2018-09-25)
PROC: 0JB90ZZ Excision of Buttock Subcutaneous Tissue and Fascia, Open Approach (ICD-10-PCS; principal; 2018-09-26)
DX: A41.59 Other Gram-negative sepsis (principal); R65.21 Severe sepsis with septic shock; E11.10 Type 2 diabetes mellitus with ketoacidosis without coma; G92 Toxic encephalopathy; E43 Unspecified severe protein-calorie malnutrition; N17.0 Acute kidney failure with tubular necrosis; L89.213 Pressure ulcer of right hip, stage 3; E87.0 Hyperosmolality and hypernatremia; R17 Unspecified jaundice; N39.0 Urinary tract infection, site not specified; E87.2 Acidosis; E11.22 Type 2 diabetes mellitus with diabetic chronic kidney disease; B96.1 Klebsiella pneumoniae [K. pneumoniae] as the cause of diseases classified elsewhere; E86.0 Dehydration; E87.6 Hypokalemia; N18.9 Chronic kidney disease, unspecified; R62.7 Adult failure to thrive; Z87.440 Personal history of urinary (tract) infections; E88.09 Other disorders of plasma-protein metabolism, not elsewhere classified; Z73.6 Limitation of activities due to disability; S31.829A Unspecified open wound of left buttock, initial encounter; S31.819A Unspecified open wound of right buttock, initial encounter; X58.XXXA Exposure to other specified factors, initial encounter; Y93.9 Activity, unspecified; Y92.129 Unspecified place in nursing home as the place of occurrence of the external cause; Z68.27 Body mass index [BMI] 27.0-27.9, adult; R19.00 Intra-abdominal and pelvic swelling, mass and lump, unspecified site; Z79.4 Long term (current) use of insulin
CPT/HCPCS: 36415; 36569; 36600; 70450-TC; 71045-TC; 71260-TC; 72170-TC; 76770-TC; 76856-TC; 80048-TC; 80053-TC; 80061-TC; 80076-TC; 80202-TC; 81000-TC; 82550-TC; 82570-TC; 82803-TC; 82947-TC; 82962-TC; 83605-TC; 83735-TC; 84100-TC; 84155-TC; 84300-TC; 84443-TC; 84484-TC; 85025-TC; 85730-TC; 87040-TC; 87070-TC; 87081-TC; 87086-TC; 87186-TC; 90732; 92526; 92611-TC; 93307-TC; A4216; A6253; A6402; A6403; C1751; G0378; J0690; J1815; J1956; J2270; J2543; J3370; J3475; J3480; J3490; J7030; J7042; J7050; J7060; J7070; J7120; Q9967

== ENCOUNTER 2018-12-17 07:56 | Inpatient (IN) | payer MEDICARE ==
[~2018-12-17] VITALS: Ht 167.6 cm; Wt 78.9 kg
[2018-12-17] VITALS (23 sets, daily range): BP systolic 87–112; BP diastolic 41–61
[~2018-12-17 07:56] MED LIST: CLOT15CR35 TP; DOXY100T2 PO; HYDR-4354 PO; INSU100I19 SQ; LACT1CAP72 PO; LEVO100T PO; LEVO750T21 PO; NUT.237L45 PO; RAMI2.5C2 PO; SERT100T PO
[2018-12-17] MEDS ORDERED: VANCOMYCIN 1 GM in IV D5W 250 ML IV ONE (08:00)
[2018-12-17] MEDS ORDERED: PIPERACILLIN /TAZOBACTAM 3.375 G in IV D5W 50 ML IV ONE (08:00)
[2018-12-17] MEDS ORDERED: IV NS 0.9% 1,000 ML BAG IV ONE (08:00)
--- NOTE | 2018-12-17 08:00 | NUR ---
73 YEAR OLD FEMALE [id number] FROM [facility] FOR LOW BLOOD PRESSURE. PATIENT IS ALERT AND ORIENTED X3. SHE IS ABLE TO MAKE THINGS KNOWN AND VERBALIZE NEEDS. BREATHING EVEN AND UNLABORED WITH NO DISTRESS NOTED. SKIN WARM TO TOUCH. NOTED WITH F/C AND IV LEFT AC 18G FROM RA. AWAITING TO BE SEEN BY
[2018-12-17 08:23] LABS: CALCIUM, SERUM 7.7 mg/dL (8.5-10.1); CARBON DIOXIDE 26 mmol/L (21-32); CHLORIDE 102 mmol/L (98-107); CREATININE 2.2 mg/dL (0.6-1.3); GLUCOSE 74 mg/dL (74-106); POTASSIUM 4.3 mmol/L (3.5-5.1); SODIUM SERUM 136 mmol/L (136-145); UREA NITROGEN, BLOOD 45 mg/dL (7-18)
[2018-12-17 08:24] LABS: BASOPHILS # (AUTO) 0.1 /CMM (0.0-0.2); BASOPHILS % (AUTO) 0.6 % (0.0-2.0); EOSINOPHILS % (AUTO) 0.1 % (0.0-6.0); LYMPHOCYTES # (AUTO) 0.9 /CMM (0.8-4.8); MEAN CORPUSCULAR HGB CONC 31 g/dl (31.0-36.0); MEAN CORPUSCULAR VOLUME 74 fL (82-100); MONOCYTES # (AUTO) 1.2 /CMM (0.1-1.30); MONOCYTES % (AUTO) 5.2 % (2.0-12.0); NEUTROPHILS % (AUTO) 90.1 % (43.0-81.0); PLATELET COUNT (AUTO) 498 /CMM (150-450); RED BLOOD CELL COUNT(AUTO) 2.24 MIL/uL (4.0-5.2); WHITE BLOOD COUNT (AUTO) 22.2 K/uL (4.3-11.0)
[2018-12-17 08:26] LABS: HEMATOCRIT 17 % (33-45); HEMOGLOBIN 5.2 g/dL (11.5-14.8)
[2018-12-17 08:37] LABS: ALANINE AMINOTRANSFERASE 17 U/L (12-78); ALKALINE PHOSPHATASE 87 U/L (46-116); ASPARTATE AMINOTRANSFERASE 39 U/L (15-37); BILIRUBIN,DIRECT 0.1 mg/dL (0.0-0.2); BILIRUBIN,TOTAL 0.2 mg/dL (0.2-1.0); TOTAL PROTEIN, SERUM 5.9 g/dL (6.4-8.2)
[2018-12-17 08:39] LABS: ALBUMIN 1.1 g/dL (3.4-5.0)
[2018-12-17 08:44] LABS: APPEARANCE,URINE Turbid (CLEAR); BILIRUBIN,URINE Negative (NEGATIVE); BLOOD, URINE Moderate Ery/uL (NEGATIVE); COLOR,URINE Yellow (YELLOW); KETONES,URINE Negative (NEGATIVE); LEUKOCYTE ESTERASE ,URINE Large (NEGATIVE); NITRITE, URINE Negative (NEGATIVE); PROTEIN,URINE 100 mg/dl (NEGATIVE); UGLUCOSE Negative (NEGATIVE); UROBILINOGEN,URINE 0.2 EU/dL (0.2)
[2018-12-17 08:46] LABS: BACTERIA,URINE Moderate /HPF (None Seen); SQUAMOUS EPITHELIAL CELL,UR Few /HPF (None Seen); WBC,URINE TOO NUMEROUS TO COUN /HPF (0-3)
--- NOTE | 2018-12-17 09:03 | NUR ---
PANEL ON-CALL PAGED
[2018-12-17] MEDS ORDERED: IV NS 0.9% 1,000 ML IV ONE (09:30)
--- NOTE | 2018-12-17 09:33 | NUR ---
PANEL ON-CALL PAGED
[2018-12-17 09:53] LABS: LYMPHOCYTES % (MANUAL) 9 % (16-48); MONOCYTES % (MANUAL) 7 % (0-11.0); MYELOCYTES % 1 % (0-0); NEUTROPHILS % (MANUAL) 83 (42-76)
[2018-12-17] MEDS ORDERED: BISA10SU61 RC (10:12)
[2018-12-17] MEDS ORDERED: TYL2T PO (10:12)
[2018-12-17] MEDS ORDERED: MULT-661 PO (10:12)
[2018-12-17] MEDS ORDERED: NA P133E RC (10:12)
[2018-12-17] MEDS ORDERED: PROT946L PO (10:12)
[2018-12-17] MEDS ORDERED: PREG75CA PO (10:12)
[2018-12-17] MEDS ORDERED: ASCO500T9 PO (10:12)
--- NOTE | 2018-12-17 10:19 | NUR ---
BLOOD TRANSFUSION STARTED SECONDARY RN SHERIDAN VERIFIED PATIENT
--- NOTE | 2018-12-17 10:20 | NUR ---
GOT BED 263
--- NOTE | 2018-12-17 10:32 | NUR ---
REPORT GIVEN TO EDWIN FOR CONTINUITY OF CARE
--- NOTE | 2018-12-17 11:03 | NUR ---
NURSING FARM MORTGAGE AGENT NOTIFIED FOR PICC LINE INSERTION FOR PATIENT
--- NOTE | 2018-12-17 11:25 | NUR ---
RN INITIAL NOTES RECEIVED PT AWAKE, A/OX1-2. ON ROOM AIR. NO RESPIRATORY DISTRESS NOTED. NO SOB NOTED. DENIES ANY PAIN. PT PLACED COMFORTABLY TO BED. CONNECTED TO MONITOR. LAC #[address] 1 UNIT OF PRBC, STARTED IN ER, INFUSING. NO TRANSFUSION REACTION NOTED. FC IN PLACE. YELLOW CLOUDY URINE NOTED. SKIN ASSESSMENT DONE, PICTURES TAKEN AND PLACED IN THE CHART. FOR PICC IN INSERTION. CONSENT OBTAINED FROM PT. BRITTNEY RODRIGUEZ NP AWARE OF ADMISSION. AWAITING FOR ORDERS. WILL MONITOR.
[2018-12-17] MEDS ORDERED: Z GUARD REMEDY 2 OZ OINT TP PRN ×2 (12:00→14:00)
[2018-12-17] MEDS ORDERED: DEXTROSE 50%-WATER 50 ML DISP.SYRIN IV PRN (12:00)
[2018-12-17] MEDS ORDERED: MAGNESIUM HYDROXIDE 30 ML UDC PO PRN (12:00)
[2018-12-17] MEDS ORDERED: MAG HYDROX/AL HYDROX/SIMETH 30 ML UDC PO PRN (12:00)
[2018-12-17] MEDS ORDERED: ONDANSETRON HCL/PF 4 MG/2 ML VIAL IVP PRN (12:00)
[2018-12-17] MEDS: IV NS 0.9% 1,000 ML IV PRN (12:29)
[2018-12-17] MEDS: BLOOD SUGAR DIAGNOSTIC 1 EACH STRIP IN SCH ×3 (12:37→21:34)
[2018-12-17] MEDS ORDERED: FEE PK DOSING 1 MIN EA MC ONE (12:58)
[2018-12-17] MEDS: PIPERACILLIN /TAZOBACTAM 2.25 G in IV D5W 50 ML IV SCH ×2 (14:04→17:03)
[2018-12-17 14:39] LABS: IRON, SERUM 11 ug/dl (50-175); TOTAL IRON BINDING CAPACITY 107 ug/dl (250-450)
[2018-12-17 14:49] LABS: FERRITIN 506 ng/mL (8-388)
[2018-12-17] MEDS: LACTOBACILLUS RHAMNOSUS GG 1 EACH CAP.SPRINK PO SCH (16:29)
[2018-12-17] MEDS: NEXIUM 40 MG VIAL IV SCH (16:29)
--- NOTE | 2018-12-17 18:36 | NUR ---
RN CLOSING NOTES PT REMAINS A/OX1-2. NO SOB NOTED. DENIES ANY PAIN. TRANSFUSED 2 UNITS OF PRBC. NO TRANSFUSION REACTION NOTED. VITAL SIGNS WNL. AWAITING FOR RPT HGB/HCT RESULT. KEPT CLEAN AND DRY. REPOSITIONED Q2. BLE ELEVATED. WILL ENDORSE FOR CONTINUITY OF CARE
[2018-12-17 18:51] LABS: HEMOGLOBIN 7.4 g/dL (11.5-14.8)
--- NOTE | 2018-12-17 19:45 | NUR ---
RN NOTES RECEIVED PATIENT ASLEEP ON BED. AOX3, ABLE TO VERBALIZED UNDERSTANDING AND CARE. NO ACUTE RESPIRATORY DISTRESS ON ROOM AIR SATURATION 96% NSR ON TELE MONITOR. IV SITE ON LAC G 18 AND JOSE RAFAEL PICC LINE INTACT AND PATTERN WITH GOOD BLOOD RETURN. BP WNL. ALBUMIN 1.1 TODAY. LATEST HGB 7.4 AFTER 2 UNITS PRBC GIVEN.NO ASE SHOWN. KEPT PT CLEAN AND DRY. CALL LIGHT KEPT WITHIN EASY REACH INSTRUCTION PROVIDED.
[2018-12-17] MEDS: PREGABALIN 25 MG CAPSULE PO SCH (21:25)
[2018-12-17] MEDS: SUCRALFATE 1 G TABLET PO SCH (21:25)
[2018-12-17] MEDS: INSULIN GLARGINE, 100 UNIT/ML CARTRIDGE SQ SCH (21:34)
[2018-12-18] VITALS (15 sets, daily range): BP systolic 90–110; BP diastolic 43–53
[2018-12-18] MEDS: PIPERACILLIN /TAZOBACTAM 2.25 G in IV D5W 50 ML IV SCH ×4 (00:13→17:18)
[2018-12-18] MEDS: IV NS 0.9% 1,000 ML IV PRN ×2 (02:58→17:47)
[2018-12-18 04:49] LABS: BASOPHILS # (AUTO) 0.1 /CMM (0.0-0.2); BASOPHILS % (AUTO) 0.5 % (0.0-2.0); EOSINOPHILS % (AUTO) 0.9 % (0.0-6.0); HEMATOCRIT 23 % (33-45); HEMOGLOBIN 7.4 g/dL (11.5-14.8); LYMPHOCYTES # (AUTO) 0.7 /CMM (0.8-4.8); LYMPHOCYTES % (AUTO) 4.3 % (20.0-44.0); MEAN CORPUSCULAR HGB CONC 32 g/dl (31.0-36.0); MEAN CORPUSCULAR VOLUME 78 fL (82-100); MONOCYTES % (AUTO) 5.9 % (2.0-12.0); NEUTROPHILS # (AUTO) 14.4 /CMM (1.8-8.9); NEUTROPHILS % (AUTO) 88.4 % (43.0-81.0); PLATELET COUNT (AUTO) 484 /CMM (150-450); RED BLOOD CELL COUNT(AUTO) 3.01 MIL/uL (4.0-5.2); WHITE BLOOD COUNT (AUTO) 16.3 K/uL (4.3-11.0)
[2018-12-18 05:09] LABS: ALANINE AMINOTRANSFERASE 14 U/L (12-78); ALKALINE PHOSPHATASE 81 U/L (46-116); BILIRUBIN,DIRECT 0.2 mg/dL (0.0-0.2); BILIRUBIN,TOTAL 0.4 mg/dL (0.2-1.0); CALCIUM, SERUM 7.4 mg/dL (8.5-10.1); CARBON DIOXIDE 22 mmol/L (21-32); CHLORIDE 109 mmol/L (98-107); CREATININE 1.6 mg/dL (0.6-1.3); GLUCOSE 117 mg/dL (74-106); MAGNESIUM 1.8 mg/dL (1.8-2.4); PHOSPHORUS 4.2 mg/dL (2.5-4.9); POTASSIUM 4.3 mmol/L (3.5-5.1); SODIUM SERUM 141 mmol/L (136-145); TOTAL PROTEIN, SERUM 5.6 g/dL (6.4-8.2); UREA NITROGEN, BLOOD 38 mg/dL (7-18)
[2018-12-18 05:10] LABS: CHOLESTEROL 75 mg/dL (<200); HDL CHOLESTEROL 30 mg/dL (40-60); LDL 30 mg/dL (0-99); THYROID STIMULATING HORMONE 0.591 uIU/mL (0.358-3.74); TRIGLYCERIDES 86 mg/dL (30-150)
[2018-12-18 05:10] LABS: OCCULT BLOOD STOOL NEGATIVE (NEGATIVE)
[2018-12-18 05:24] LABS: ASPARTATE AMINOTRANSFERASE 23 U/L (15-37)
[2018-12-18 05:30] LABS: ALBUMIN 1.1 g/dL (3.4-5.0)
--- NOTE | 2018-12-18 07:15 | NUR ---
RN INITIAL NOTES RECEIVED PT ASLEEP, EASILY AROUSABLE. ON ROOM AIR. NO RESPIRATORY DISTRESS NOTED. NO SIGNS OF PAIN NOTED. JOSE RAFAEL PICC IN PLACE. IVF INFUSING. FC IN PLACE. NO HEMATURIA NOTED. NO SIGNS OF ACTIVE BLEEDING NOTED. VS WNL. WILL CONTINUE TO MONITOR
--- NOTE | 2018-12-18 07:15 | NUR ---
RN NOTES PATIENT ASLEEP WELL ON BED. BREATHING EVEN AND UNLABORED. DENIES PAIN. AOX3 VERBALIZED NEEDS. NO ACTIVE BLEEDING NOTED DESPITE OF LOW HGB. BM X1 TODAY WITH BROWN SOFT. STOOL. AFEBRILE. VSS. IVF NS @ 75 ML.HR ONGOING. IV SITE REMAINED INTACT AND PATENT. INCONTINENT CARE RENDERED, ASSISTED WITH TURNING AND REPOSITIONING. KEPT PT CLEAN AND DRY. ENDORSED CONTINUITY OF CARE TO AM NURSE. ALBUMIN 1.1 REPORTED ENDORSED TO AM SHIFT.
--- NOTE | 2018-12-18 07:42 | NUR ---
WOUND CARE CONSULT PATIENT SEEN AND SKIN INTEGRITY ASSESSMENT DONE. PLEASE SEE COUNTY JUDGE ASSESSMENT IN PCS FOR TODAY. RECOMMEND SURGICAL CONSULT FOR STAGE [address] Melania VILLAFUERTE NOTIFIED OF THE CONSULT. PATIENT WITH ELIJAH AT 14, PATIENT IS ABLE TO ASSIST WITH TURNING, BUT DOES NEED PROMPTING. RECOMMEND ISOFLEX MG SPECIALTY BED FOR TREATMENT TO BE PLACED WHEN AVAILABLE. ALL TREATMENT PLANS DISCUSSED WITH NURSING STAFF AT THE BEDSIDE. WILL SEE PRN. Addendum: 12/18/18 at 0747 by STEPHIE BATISTA WNDNU Amended: Links added.
[2018-12-18] MEDS ORDERED: HYDROGEL DRESSING 90 GM TUBE TP PRN (08:00)
[2018-12-18] MEDS: LACTOBACILLUS RHAMNOSUS GG 1 EACH CAP.SPRINK PO SCH ×2 (08:12→17:16)
[2018-12-18] MEDS: MULTIVITAMINS,THERAGRAN 1 UDTAB TABLET PO SCH (08:12)
[2018-12-18] MEDS: SUCRALFATE 1 G TABLET PO SCH ×4 (08:12→21:19)
[2018-12-18] MEDS: ASCORBIC ACID 500 MG TABLET PO SCH (08:12)
[2018-12-18] MEDS: SERTRALINE HCL 50 MG TABLET PO SCH (08:12)
[2018-12-18] MEDS: BLOOD SUGAR DIAGNOSTIC 1 EACH STRIP IN SCH ×4 (08:13→21:19)
[2018-12-18] MEDS: LEVOTHYROXINE SODIUM 100 MCG TABLET PO SCH (08:13)
[2018-12-18] MEDS: NEXIUM 40 MG VIAL IV SCH ×2 (08:13→17:16)
[2018-12-18] MEDS: RAMIPRIL 1.25 MG CAPSULE PO SCH (08:13)
[2018-12-18] MEDS: VANCOMYCIN 1 GM in IV D5W 250 ML IV SCH (09:02)
[2018-12-18] MEDS: HYDROGEL DRESSING 90 GM TUBE TP SCH (09:03)
[2018-12-18] MEDS: CLOTRIMAZOLE 1% 15 GM TUBE TP SCH ×2 (09:03→17:22)
--- NOTE | 2018-12-18 10:05 | NUR ---
RN NOTES PT TRANSFERRED TO ROOM 306. PT A/O. ON ROOM AIR. NO SOB NOTED. DENIES ANY PAIN. BEDSIDE REPORT GIVEN TO RAVI THOMPSON. TOOK OVER PT'S CARE. JAY NOTIFIED TO SWITCH BED TO ISOFLEX.
--- NOTE | 2018-12-18 10:10 | NUR ---
MAINSPRING TORQUE TESTER NOTES RECEIVED PT FROM ICU NURSE EDWIN RN VIA BED, PT IS AWAKE, ALERT AND VERBALLY RESPONSIVE, DENIES PAIN, NOT IN DISTRESS, IV FLUIDS INFUSING, F/C DRAINING WELL WITH CLEAR YELLOW URINE, CALL LIGHT WITHIN REACH, PT SEEN BY DR. LYNN, PLAN OF CARE DISCUSSED WITH PT, VERBALIZED UNDERSTANDING, KEPT WARM AND COMFORTABLE IN BED.
--- NOTE | 2018-12-18 12:36 | NUR ---
LIQUEFACTION SUPERVISOR NOTES PT IN BED, RESTING, EASY TO AROUSE, ALERT AND ORIENTED, SEEN BY DR. LYNN, CALL LIGHT WITHIN REACH, KEPT COMFORTABLE.
--- NOTE | 2018-12-18 15:45 | NUR ---
STAFF INTERNIST OFFICE BASED ONLY NOTES SWALLOW SCREEN PERFORMED, PT PASSED, DR. MARIN INFORMED, DIET ORDERED.
[2018-12-18] MEDS: INSULIN REGULAR, HUMAN 100 UNIT/ML 3 ML VIAL SQ PRN ×2 (17:53→21:56)
--- NOTE | 2018-12-18 18:09 | NUR ---
MAT WORKER NOTES PT IN BED, AWAKE, ALERT AND ORIENTED, EATING DINNER, TOLERATING WELL, NO SWALLOWING PROBLEM NOTED, DENIES PAIN, NOT IN DISTRESS, PM MEDS GIVEN, SEEN BY DR. MARIN, ALL NEEDS ATTENDED.
--- NOTE | 2018-12-18 19:50 | NUR ---
SACK MAKER NOTE: PATIENT RESTING IN BED, NO ACUTE DISTRESS NOTED. BREATHING EVEN AND UNLABORED, NO SOB NOTED. PICC LINE TO JOSE RAFAEL IN PLACE, INFUSING NS AT 75ML/HR. NO S/S OF HYPER/HYPOGLYCEMIA NOTED. BED LOCKED AND IN LOWEST POSITION, CALL LIGHT IN REACH. WILL CONTINUE TO MONITOR.
[2018-12-18] MEDS: PREGABALIN 25 MG CAPSULE PO SCH (21:19)
[2018-12-18] MEDS: INSULIN GLARGINE, 100 UNIT/ML CARTRIDGE SQ SCH (21:56)
--- NOTE | 2018-12-18 22:30 | NUR ---
MS RN NOTE: PATIENT BLOOD SUGAR LEVEL 138MG/DL, NO INSULIN GIVEN, PATIENT PENDING SWALLOW EVAL AND NOT EATING. NO S/S OF HYPER/HYPOGLYCEMIA NOTED. WILL CONTINUE TO MONITOR.
[2018-12-19] VITALS: BP 101/50
[2018-12-19] MEDS: PIPERACILLIN /TAZOBACTAM 2.25 G in IV D5W 50 ML IV SCH ×4 (00:09→17:21)
[2018-12-19 04:00] VITALS: BP 99/50
--- NOTE | 2018-12-19 06:30 | NUR ---
MANAGER CONVENTION NOTE: PATIENT RESTING IN BED, NO ACUTE DISTRESS NOTED. BREATHING EVEN AND UNLABORED, NO SOB NOTED. PICC LINE TO JOSE RAFAEL IN PLACE, INFUSING NS AT 75ML/HR. PATIENT BLOOD SUGAR LEVEL 112MG/DL, NO INSULIN NEEDED. NO S/S OF HYPER/HYPOGLYCEMIA NOTED. BED LOCKED AND IN LOWEST POSITION, CALL LIGHT IN REACH. WILL ENDORSE TO DAY NURSE TO CONTINUE WITH PLAN OF CARE.
[2018-12-19] MEDS: BLOOD SUGAR DIAGNOSTIC 1 EACH STRIP IN SCH ×4 (06:50→21:37)
--- NOTE | 2018-12-19 07:30 | NUR ---
REVERSER NOTES PT IN BED, ASLEEP, EASY TO AROUSE, ALERT AND VERBALLY RESPONSIVE, NO COMPLAINT AT THIS TIME, BREATHING PATTERN NORMAL, CALL LIGHT WITHIN REACH, IV FLUDS INFUSING WELL, KEPT CONTINUOUS DRIER HELPER BED.
[2018-12-19 08:00] VITALS: BP 96/51
[2018-12-19] MEDS: SUCRALFATE 1 G TABLET PO SCH ×4 (08:25→21:37)
[2018-12-19] MEDS: LACTOBACILLUS RHAMNOSUS GG 1 EACH CAP.SPRINK PO SCH ×2 (08:25→17:20)
[2018-12-19] MEDS: ASCORBIC ACID 500 MG TABLET PO SCH (08:25)
[2018-12-19] MEDS: VANCOMYCIN 1 GM in IV D5W 250 ML IV SCH (08:25)
[2018-12-19] MEDS: LEVOTHYROXINE SODIUM 100 MCG TABLET PO SCH (08:25)
[2018-12-19] MEDS: MULTIVITAMINS,THERAGRAN 1 UDTAB TABLET PO SCH (08:26)
[2018-12-19] MEDS: SERTRALINE HCL 50 MG TABLET PO SCH (08:26)
[2018-12-19] MEDS: NEXIUM 40 MG VIAL IV SCH ×2 (08:27→17:20)
[2018-12-19 08:31] LABS: CALCIUM, SERUM 7.5 mg/dL (8.5-10.1); CARBON DIOXIDE 21 mmol/L (21-32); CHLORIDE 109 mmol/L (98-107); CREATININE 1.7 mg/dL (0.6-1.3); GLUCOSE 109 mg/dL (74-106); POTASSIUM 3.7 mmol/L (3.5-5.1); SODIUM SERUM 142 mmol/L (136-145); UREA NITROGEN, BLOOD 34 mg/dL (7-18)
[2018-12-19] MEDS: HYDROGEL DRESSING 90 GM TUBE TP SCH (08:46)
[2018-12-19] MEDS: CLOTRIMAZOLE 1% 15 GM TUBE TP SCH ×2 (08:46→17:21)
[2018-12-19] MEDS: RAMIPRIL 1.25 MG CAPSULE PO SCH (08:47)
[2018-12-19 10:28] LABS: BASOPHILS # (AUTO) 0.2 /CMM (0.0-0.2); BASOPHILS % (AUTO) 1.3 % (0.0-2.0); EOSINOPHILS % (AUTO) 2.5 % (0.0-6.0); HEMATOCRIT 24 % (33-45); HEMOGLOBIN 7.4 g/dL (11.5-14.8); LYMPHOCYTES # (AUTO) 1.3 /CMM (0.8-4.8); LYMPHOCYTES % (AUTO) 9.9 % (20.0-44.0); MEAN CORPUSCULAR HGB CONC 31 g/dl (31.0-36.0); MEAN CORPUSCULAR VOLUME 79 fL (82-100); MONOCYTES # (AUTO) 0.9 /CMM (0.1-1.30); MONOCYTES % (AUTO) 6.8 % (2.0-12.0); NEUTROPHILS # (AUTO) 10.3 /CMM (1.8-8.9); NEUTROPHILS % (AUTO) 79.5 % (43.0-81.0); PLATELET COUNT (AUTO) 519 /CMM (150-450); RED BLOOD CELL COUNT(AUTO) 2.99 MIL/uL (4.0-5.2)
--- NOTE | 2018-12-19 12:00 | NUR ---
RN MS NOTES PT IN BED, RESTING, NO COMPLAINT, NOT IN DISTRESS, INCISIONAL DEBRIDEMENT PERFORMED BY JOHANNY GROSS AT BEDSIDE, PT TOLERATED PROCEDURE WELL, WOUND DRESSING AND TREATMENT DONE, KEPT COMFORTABLE IN BED.
[2018-12-19] MEDS: INSULIN REGULAR, HUMAN 100 UNIT/ML 3 ML VIAL SQ PRN (12:12)
[2018-12-19 16:00] VITALS: BP 99/53
--- NOTE | 2018-12-19 18:50 | NUR ---
RN MS NOTES PT IN BED, AWAKE, ALERT AND ORIENTED, NO COMPLAINT OF PAIN, NOT IN DISTRESS, TOLERATING CURRENT DIET, PM MEDS GIVEN ORDERED, PM CARE PROVIDED, ALL NEEDS ATTENDED.
--- NOTE | 2018-12-19 19:15 | NUR ---
MS RN NOTES RECEIVED ON BED SLEEPING,AROUSABLE TO VERBAL STIMULI.BREATHING REGULAR,NOT IN ANY FORM OF DISTRESS.WITH IVF NS AT 75ML/HR RATE IN PROGRESS ON JOSE RAFAEL PICC LINE.SILVER CATH IN PLACE DRAINING YELLOWISH OUTPUT.S/P WOUND DEBRIDEMENT ON SACRAL AREA,DRESSING INTACT AND DRY.STILL WAITING FOR ISOFLEX BED.REPOSITION PER PROTOCOL,CALL LIGHT IN REACH,NEEDS ANTICIPATED.
[2018-12-19 20:00] VITALS: BP 106/55
[2018-12-19 20:30] VITALS: BP 106/55
[2018-12-19] MEDS ORDERED: MEROPENEM 1 G in IV NS 0.9% 100 ML IV ONE (21:00)
[2018-12-19] MEDS: PREGABALIN 25 MG CAPSULE PO SCH (21:37)
--- NOTE | 2018-12-19 21:37 | NUR ---
MS RN NOTES DUE PO MEDS GIVEN,TAKEN WELL.NEGATIVE FOR ASPIRATION
[2018-12-19] MEDS: IV NS 0.9% 1,000 ML IV PRN (21:38)
[2018-12-19] MEDS: INSULIN GLARGINE, 100 UNIT/ML CARTRIDGE SQ SCH (21:45)
--- NOTE | 2018-12-19 21:45 | NUR ---
MS RN NOTES ACCU-CHECK BLOOD SUGAR CHECK 118,NO INSULIN COVERAGE.PATIENT REFUSED LANTUS 16 UNITS SCHEDULED HS.
[2018-12-20 06:30] LABS: BASOPHILS # (AUTO) 0.1 /CMM (0.0-0.2); EOSINOPHILS % (AUTO) 2.5 % (0.0-6.0); HEMATOCRIT 23 % (33-45); HEMOGLOBIN 7.4 g/dL (11.5-14.8); LYMPHOCYTES # (AUTO) 1.1 /CMM (0.8-4.8); LYMPHOCYTES % (AUTO) 9.1 % (20.0-44.0); MEAN CORPUSCULAR HGB CONC 32 g/dl (31.0-36.0); MEAN CORPUSCULAR VOLUME 78 fL (82-100); MONOCYTES # (AUTO) 0.8 /CMM (0.1-1.30); MONOCYTES % (AUTO) 6.3 % (2.0-12.0); NEUTROPHILS # (AUTO) 10.1 /CMM (1.8-8.9); NEUTROPHILS % (AUTO) 81.1 % (43.0-81.0); PLATELET COUNT (AUTO) 469 /CMM (150-450); RED BLOOD CELL COUNT(AUTO) 2.99 MIL/uL (4.0-5.2); WHITE BLOOD COUNT (AUTO) 12.5 K/uL (4.3-11.0)
--- NOTE | 2018-12-20 06:34 | NUR ---
MS RN NOTES NO SIGNIFICANT CHANGE IN STATUS,REPOSITION PER PROTOCOL.STILL NEED GEL BED,NO AVAILABLE ON THE UNIT.IVF FLUIDS IN PROGRESS.IN NO ACUTE DISTRESS.WILL ENDORSE TO TREV RODRIGUES FOR CARMENZA
[2018-12-20 06:42] LABS: CALCIUM, SERUM 7.5 mg/dL (8.5-10.1); CARBON DIOXIDE 20 mmol/L (21-32); CHLORIDE 109 mmol/L (98-107); CREATININE 1.6 mg/dL (0.6-1.3); GLUCOSE 99 mg/dL (74-106); MAGNESIUM 1.5 mg/dL (1.8-2.4); PHOSPHORUS 3.4 mg/dL (2.5-4.9); POTASSIUM 3.3 mmol/L (3.5-5.1); SODIUM SERUM 141 mmol/L (136-145); UREA NITROGEN, BLOOD 27 mg/dL (7-18)
--- NOTE | 2018-12-20 07:32 | NUR ---
MS RN NOTES RECEIVED PATIENT IN BED, ASLEEP. AROUSABLE TO VERBAL AND TACTILE STIMULI. HOB ELEVATED. NO SOB OBSERVED. DENIES ANY C/O PAIN NOR DISCOMFORT AT THIS TIME. JOSE RAFAEL PICC LINE INTACT AND PATENT INFUSING NS @ 75ML/HR. BED IN LOWEST POSITION, LOCKED. BEDSIDERAILS UP X2. CALL LGIHT WITHIN REACH.
[2018-12-20 08:00] VITALS: BP 102/67
[2018-12-20] MEDS: SUCRALFATE 1 G TABLET PO SCH ×4 (08:05→21:58)
[2018-12-20] MEDS: LEVOTHYROXINE SODIUM 100 MCG TABLET PO SCH (08:05)
[2018-12-20] MEDS: BLOOD SUGAR DIAGNOSTIC 1 EACH STRIP IN SCH ×4 (08:05→22:10)
[2018-12-20] MEDS: INSULIN REGULAR, HUMAN 100 UNIT/ML 3 ML VIAL SQ PRN ×3 (08:09→17:26)
[2018-12-20] MEDS: MULTIVITAMINS,THERAGRAN 1 UDTAB TABLET PO SCH (08:42)
[2018-12-20] MEDS: ASCORBIC ACID 500 MG TABLET PO SCH (08:42)
[2018-12-20] MEDS: LACTOBACILLUS RHAMNOSUS GG 1 EACH CAP.SPRINK PO SCH ×2 (08:42→17:18)
[2018-12-20] MEDS: NEXIUM 40 MG VIAL IV SCH ×2 (08:42→17:18)
[2018-12-20] MEDS: RAMIPRIL 1.25 MG CAPSULE PO SCH (08:46)
[2018-12-20] MEDS: SERTRALINE HCL 50 MG TABLET PO SCH (08:46)
--- NOTE | 2018-12-20 08:47 | NUR ---
MS RN NOTES HELD ALTACE B/P 102/67
[2018-12-20] MEDS ORDERED: Magnesium 1GM/D5W 100ML PREMIX 100 ML IV SCH (09:12)
[2018-12-20] MEDS ORDERED: POTASSIUM CHLORIDE 10 MEQ TABLET.SA PO ONE (09:30)
[2018-12-20] MEDS: MEROPENEM 1 G in IV NS 0.9% 100 ML IV SCH ×2 (09:39→21:26)
[2018-12-20] MEDS: HYDROGEL DRESSING 90 GM TUBE TP SCH (09:40)
[2018-12-20] MEDS: CLOTRIMAZOLE 1% 15 GM TUBE TP SCH ×2 (09:40→17:19)
[2018-12-20] MEDS: IV NS 0.9% 1,000 ML IV PRN (10:07)
[2018-12-20 16:00] VITALS: BP 100/56
--- NOTE | 2018-12-20 18:45 | NUR ---
MS RN CLOSING NOTES PATIENT ALERT AND ORIENTED X2-3. HOB ELEVATED. NO S/S OF RESPIRATORY DISTRESS. DENIES ANY C/O PAIN NOR DISCOMFORT AT THIS TIME. JOSE RAFAEL PICC LINE INTACT AND PATENT INFUSING NS @ 75ML/HR. F/C INTACT AND PATENT DRAINING URINE VIA BEDSIDE VIA GRAVITY. REMAIN ON MERREM IV FOR SEPSIS/BACTEREMIA ORDERED DOMONIQUE WELL. BED IN LOWEST POSITION, LOCKED. BED SIDERAILS UP X2. ABLE TO VERBALIZE NEEDS. CALL LIGHT WITHIN REACH. IN NO APPARENT DISTRESS.
--- NOTE | 2018-12-20 19:30 | NUR ---
MS RN NOTES RECEIVED LAYING COMFORTABLY ON BED,BREATHING REGULAR,NOT IN ANY FORM OF DISTRESS.IVF IN PROGRESS AT 75ML/HR RATE VIA IV PUMP ON THE RIGHT UPPER ARM PICC LINE.DVT PUMP IN USED FOR DVT PROHYLAXIS.ISOLATION PRECAUTION FOR ESBL URINE AND BLOOD.S/P WOUND DEBRIDEMENT ON COCCYX AREA,DRESSING/MEPILEX IN PLACE.REPOSITION PER PROTOCOL,CALL LIGHT IN REACH,NEEDS ANTICIPATED.
[2018-12-20 20:00] VITALS: BP 97/50
[2018-12-20 20:53] VITALS: BP 97/50
--- NOTE | 2018-12-20 21:45 | NUR ---
MS RN NOTES ACCU-CHECK BLOOD SUGAR CHECKED 134,REFUSED INSULIN COVERAGE AND LANTUS 16 UNITS SCHEDULED
[2018-12-20] MEDS: PREGABALIN 25 MG CAPSULE PO SCH (21:58)
[2018-12-20] MEDS: INSULIN GLARGINE, 100 UNIT/ML CARTRIDGE SQ SCH (22:00)
--- NOTE | 2018-12-21 05:45 | NUR ---
MS RN NOTES ACCU-CHECK BLOOD SUGAR CHECK 103,NO INSULIN COVERAGE
--- NOTE | 2018-12-21 06:00 | NUR ---
MS RN NOTES NO SIGNIFICANT CHANGE IN STATUS.REMAINS AFEBRILE.POSSIBLE TRANSFER BACK TO 4 SEASON TODAY.IN NO ACUTE DISTRESS.WILL ENDORSE TO DAY NURSE FOR CARMENZA.
[2018-12-21 06:30] LABS: CALCIUM, SERUM 7.6 mg/dL (8.5-10.1); CARBON DIOXIDE 21 mmol/L (21-32); CHLORIDE 112 mmol/L (98-107); CREATININE 1.5 mg/dL (0.6-1.3); GLUCOSE 111 mg/dL (74-106); MAGNESIUM 1.7 mg/dL (1.8-2.4); POTASSIUM 3.4 mmol/L (3.5-5.1); SODIUM SERUM 143 mmol/L (136-145); UREA NITROGEN, BLOOD 24 mg/dL (7-18)
--- NOTE | 2018-12-21 07:20 | NUR ---
MS RN OPENING NOTES RECEIVED PT IN BED, AWAKE. A/O X3. PT ON SUPPLEMENTARY OXYGEN AT 2L VIA NC, WITH NO ACUTE RESPIRATORY DISTRESS NOTED. PT DENIES PAIN OR ANY DISCOMFORT AT THIS MOMENT. PT AWARE WITH PLAN OF CARE. PT DENIES ANY QUESTIONS OR CONCERNS AT THIS TIME. IVF NS AT 75ML/HR TO JOSE RAFAEL PICC LINE, INTACT AND FLUID INFUSING WELL. PIV LAC G18, FLUSHED WITH NS, INTACT AND OPERATIONAL. PT KEPT COMFORTABLE. PT'S BED IN LOWEST, LOCKED POSITION WITH SRX3. CALL LIGHT KEPT WITHIN REACH. WILL CONTINUE PLAN OF CARE.
[2018-12-21 07:54] VITALS: BP 99/51
[2018-12-21] MEDS: BLOOD SUGAR DIAGNOSTIC 1 EACH STRIP IN SCH ×4 (08:06→21:30)
[2018-12-21] MEDS: LEVOTHYROXINE SODIUM 100 MCG TABLET PO SCH (08:06)
[2018-12-21] MEDS: SUCRALFATE 1 G TABLET PO SCH ×4 (08:06→21:31)
[2018-12-21] MEDS: MULTIVITAMINS,THERAGRAN 1 UDTAB TABLET PO SCH (08:06)
[2018-12-21] MEDS: NEXIUM 40 MG VIAL IV SCH ×2 (08:06→16:17)
[2018-12-21] MEDS: ASCORBIC ACID 500 MG TABLET PO SCH (08:07)
[2018-12-21] MEDS: SERTRALINE HCL 50 MG TABLET PO SCH (08:07)
[2018-12-21] MEDS: LACTOBACILLUS RHAMNOSUS GG 1 EACH CAP.SPRINK PO SCH ×2 (08:07→16:17)
[2018-12-21] MEDS: HYDROGEL DRESSING 90 GM TUBE TP SCH (08:14)
[2018-12-21] MEDS: CLOTRIMAZOLE 1% 15 GM TUBE TP SCH ×2 (08:14→16:46)
[2018-12-21] MEDS: RAMIPRIL 1.25 MG CAPSULE PO SCH (08:15)
[2018-12-21] MEDS: MEROPENEM 1 G in IV NS 0.9% 100 ML IV SCH ×2 (08:19→20:28)
[2018-12-21] MEDS: IV NS 0.9% 1,000 ML IV PRN (09:52)
[2018-12-21] MEDS: Magnesium 1GM/D5W 100ML PREMIX 100 ML IV SCH ×2 (10:44→11:49)
[2018-12-21] MEDS: POTASSIUM CL. PREMIX PERIPHER. 50 ML IV SCH ×2 (11:01→12:04)
[2018-12-21] MEDS: INSULIN REGULAR, HUMAN 100 UNIT/ML 3 ML VIAL SQ PRN ×2 (11:24→21:35)
[2018-12-21 16:00] VITALS: BP 103/62
--- NOTE | 2018-12-21 18:34 | NUR ---
RN NOTES REPLACED FC DUE TO LEAKING. FC INTACT, URINE DRAINING WELL TO THE BAG WITH CLOUDY YELLOW URINE. WILL CONTINUE TO MONITOR.
--- NOTE | 2018-12-21 18:40 | NUR ---
MS RN CLOSING NOTES PT IN BED, AWAKE. A/O X3. PT ON SUPPLEMENTARY OXYGEN AT 2L VIA NC, WITH NO ACUTE RESPIRATORY DISTRESS NOTED. PT DENIES PAIN OR ANY DISCOMFORT AT THIS MOMENT. IVF NS AT 75ML/HR TO JOSE RAFAEL PICC LINE, INTACT AND FLUID INFUSING WELL. PIV LAC G18, FLUSHED WITH NS, INTACT AND OPERATIONAL. FC IN PLACE, WITH CLEAR YELLOW URINE WITH WHITE-YELLOWISH SEDIMENTS NOTED. PT KEPT COMFORTABLE. ALL NEEDS AND CARE ATTENDED. PT'S BED IN LOWEST, LOCKED POSITION WITH SRX3. CALL LIGHT KEPT WITHIN REACH. WILL ENDORSE TO INCOMING NIGHT NURSE FOR CARMENZA.
--- NOTE | 2018-12-21 19:56 | NUR ---
MS RN NOTE RECEIVED PATIENT IN BED. A/O X2. ON OXYGEN RUNNING AT 2L/MIN. RESPIRATIONS ARE EVEN AND UNLABORED. IV ACCESS IN JOSE RAFAEL PICC LINE RUNNING NS @75ML/HR AND LAC GAUGE 18 PATENT AND SALINE LOCKED. SILVER IS PRESENT, DRAINING TO GRAVITY, URINE IS YELLOW AND CLOUDY. IN NO APPARENT DISTRESS AT THIS TIME. BED IS LOW AND LOCKED. CALL LIGHT WITHIN REACH. WILL CONTINUE TO MONITOR.
[2018-12-21 20:00] VITALS: BP 105/55
[2018-12-21 20:26] VITALS: BP 105/55
[2018-12-21] MEDS: PREGABALIN 25 MG CAPSULE PO SCH (21:31)
--- NOTE | 2018-12-21 21:56 | NUR ---
MS RN NOTE ACCUCHECK BLOOD SUGAR CHECKED AND READS 161,REFUSED INSULIN COVERAGE AND LANTUS 16 UNITS SCHEDULED
[2018-12-21] MEDS: INSULIN GLARGINE, 100 UNIT/ML CARTRIDGE SQ SCH (21:57)
[2018-12-22] MEDS: IV NS 0.9% 1,000 ML IV PRN (06:08)
--- NOTE | 2018-12-22 06:56 | NUR ---
MS RN CLOSING NOTE PATIENT IS RESTING IN BED. A/O X2. ON OXYGEN RUNNING AT 2L/MIN. RESPIRATIONS ARE EVEN AND UNLABORED. DENIES PAIN THROUGHOUT SHIFT. IV ACCESS MAINTAINED IN JOSE RAFAEL PICC LINE RUNNING NS @75ML/HR AND LAC GAUGE 18 PATENT AND SALINE LOCKED. SILVER CATHETER IS MAINTAINED, DRAINING TO GRAVITY, URINE IS YELLOW AND CLOUDY OUTPUT 550ML. NO SIGNS OF DISTRESS THROUGHOUT SHIFT. BED IS LOW AND LOCKED. CALL LIGHT WITHIN REACH. WILL ENDORSE TO NEXT SHIFT FOR CARMENZA.
--- NOTE | 2018-12-22 07:31 | NUR ---
MS RN OPENING NOTES RECEIVED PT IN BED, ASLEEP, EASILY AROUSED. A/O X3. PT ON SUPPLEMENTARY OXYGEN AT 2L VIA NC, WITH NO ACUTE RESPIRATORY DISTRESS NOTED. PT DENIES PAIN OR ANY DISCOMFORT AT THIS MOMENT. PT DENIES ANY QUESTIONS OR CONCERNS AT THIS TIME. IVF NS AT 75ML/HR TO JOSE RAFAEL PICC LINE, INTACT AND FLUID INFUSING WELL. PIV LAC G18, FLUSHED WITH NS, INTACT AND OPERATIONAL. FC IN PLACE WITH CLEAR YELLOW URINE IN THE BAG. PT KEPT COMFORTABLE. PT'S BED IN LOWEST, LOCKED POSITION WITH SRX3. CALL LIGHT KEPT WITHIN REACH. WILL CONTINUE PLAN OF CARE.
[2018-12-22] MEDS: BLOOD SUGAR DIAGNOSTIC 1 EACH STRIP IN SCH ×4 (07:37→22:21)
[2018-12-22 07:43] LABS: CALCIUM, SERUM 7.5 mg/dL (8.5-10.1); CARBON DIOXIDE 24 mmol/L (21-32); CHLORIDE 112 mmol/L (98-107); CREATININE 1.4 mg/dL (0.6-1.3); GLUCOSE 89 mg/dL (74-106); MAGNESIUM 1.9 mg/dL (1.8-2.4); POTASSIUM 3.5 mmol/L (3.5-5.1); SODIUM SERUM 143 mmol/L (136-145); UREA NITROGEN, BLOOD 21 mg/dL (7-18)
[2018-12-22 08:06] VITALS: BP 108/54
[2018-12-22] MEDS: NEXIUM 40 MG VIAL IV SCH ×2 (08:08→16:18)
[2018-12-22] MEDS: MEROPENEM 1 G in IV NS 0.9% 100 ML IV SCH ×2 (08:09→22:20)
[2018-12-22] MEDS: SUCRALFATE 1 G TABLET PO SCH ×4 (08:10→22:22)
[2018-12-22] MEDS: LACTOBACILLUS RHAMNOSUS GG 1 EACH CAP.SPRINK PO SCH ×2 (08:10→16:18)
[2018-12-22] MEDS: LEVOTHYROXINE SODIUM 100 MCG TABLET PO SCH (08:10)
[2018-12-22] MEDS: MULTIVITAMINS,THERAGRAN 1 UDTAB TABLET PO SCH (08:10)
[2018-12-22] MEDS: SERTRALINE HCL 50 MG TABLET PO SCH (08:10)
[2018-12-22] MEDS: RAMIPRIL 1.25 MG CAPSULE PO SCH (08:10)
[2018-12-22] MEDS: ASCORBIC ACID 500 MG TABLET PO SCH (08:13)
[2018-12-22] MEDS: CLOTRIMAZOLE 1% 15 GM TUBE TP SCH ×2 (08:25→16:19)
[2018-12-22] MEDS: HYDROGEL DRESSING 90 GM TUBE TP SCH (08:26)
--- NOTE | 2018-12-22 18:36 | NUR ---
MS RN CLOSING NOTES PT IN BED, ASLEEP, EASILY AROUSED. A/O X3. PT ON SUPPLEMENTARY OXYGEN AT 2L VIA NC, WITH NO ACUTE RESPIRATORY DISTRESS NOTED. PT DENIES PAIN OR ANY DISCOMFORT AT THIS MOMENT IVF NS AT 75ML/HR TO JOSE RAFAEL PICC LINE, INTACT AND FLUID INFUSING WELL. PIV LAC G18, FLUSHED WITH NS, INTACT AND OPERATIONAL. FC IN PLACE WITH CLEAR YELLOW URINE IN THE BAG, 1300ML OUTPUT. PT KEPT COMFORTABLE. ALL NEEDS AND CARE ATTENDED. PT'S BED IN LOWEST, LOCKED POSITION WITH SRX3. CALL LIGHT KEPT WITHIN REACH. WILL ENDORSE TO INCOMING SERVICE MEMBER FOR CARMENZA.
[2018-12-22 20:00] VITALS: BP 103/61
--- NOTE | 2018-12-22 20:05 | NUR ---
MS RN NOTES RECEIVED PATIENT ASLEEP IN BED WITH NO DISTRESS NOTED. CALL LIGHT WITHIN REACH. PERIPHERAL LINE INTACT AND PATENT. FC INTACT AND PATENT. NO C/O PAIN OR DISCOMFORT. CONTACT ISOLATION OBSERVED AND MAINTAINED AT ALL TIMES. ENCOURAGED USE OF CALL LIGHT FOR ASSISTANCE AND VERBALIZED GOOD UNDERSTANDING. BED IN LOW LOCK SETTING. BED ALARM ON AND FUNCTIONING PROPERLY. ROOM FREE OF CLUTTER AND BELONGINGS KEPT NEAR BEDSIDE. WILL CONTINUE TO MONITOR.
[2018-12-22] MEDS: INSULIN GLARGINE, 100 UNIT/ML CARTRIDGE SQ SCH (22:00)
[2018-12-22] MEDS: PREGABALIN 25 MG CAPSULE PO SCH (22:22)
[2018-12-23] MEDS: IV NS 0.9% 1,000 ML IV PRN ×2 (05:34→22:07)
--- NOTE | 2018-12-23 06:52 | NUR ---
MS RN NOTES PATIENT ASLEEP IN BED WITH NO DISTRESS NOTED. CALL LIGHT WITHIN REACH. ALL DUE MEDS GIVEN ORDERED WITH NO ASE NOTED. NO FURTHER C/O PAIN OR DISCOMFORT. PERIPHERAL LINE AND PICC LINE INTACT AND PATENT. FC INTACT AND PATENT. CONTACT ISOLATION OBSERVED AND MAINTAINED AT ALL TIMES. ROOM FREE OF CLUTTER AND BELONGINGS KEPT NEAR BEDSIDE. BED IN LOW LOCK SETTING. BED ALARM ON AND FUNCTIONING PROPERLY. WILL ENDORSE TO ONCOMING SHIFT.
[2018-12-23] MEDS: BLOOD SUGAR DIAGNOSTIC 1 EACH STRIP IN SCH ×4 (07:35→21:53)
[2018-12-23] MEDS: SUCRALFATE 1 G TABLET PO SCH ×4 (07:57→21:53)
[2018-12-23] MEDS: LEVOTHYROXINE SODIUM 100 MCG TABLET PO SCH (07:57)
[2018-12-23 08:00] VITALS: BP 104/55
[2018-12-23] MEDS: MULTIVITAMINS,THERAGRAN 1 UDTAB TABLET PO SCH (08:10)
[2018-12-23] MEDS: LACTOBACILLUS RHAMNOSUS GG 1 EACH CAP.SPRINK PO SCH ×2 (08:10→16:39)
[2018-12-23] MEDS: ASCORBIC ACID 500 MG TABLET PO SCH (08:10)
[2018-12-23] MEDS: SERTRALINE HCL 50 MG TABLET PO SCH (08:10)
[2018-12-23 08:11] LABS: CALCIUM, SERUM 7.6 mg/dL (8.5-10.1); CARBON DIOXIDE 21 mmol/L (21-32); CHLORIDE 109 mmol/L (98-107); CREATININE 1.2 mg/dL (0.6-1.3); GLUCOSE 97 mg/dL (74-106); POTASSIUM 3.4 mmol/L (3.5-5.1); SODIUM SERUM 140 mmol/L (136-145); UREA NITROGEN, BLOOD 17 mg/dL (7-18)
[2018-12-23] MEDS: NEXIUM 40 MG VIAL IV SCH ×2 (08:11→16:37)
[2018-12-23] MEDS: MEROPENEM 1 G in IV NS 0.9% 100 ML IV SCH ×2 (08:11→21:53)
[2018-12-23] MEDS: RAMIPRIL 1.25 MG CAPSULE PO SCH (08:11)
[2018-12-23] MEDS: CLOTRIMAZOLE 1% 15 GM TUBE TP SCH ×2 (08:23→16:40)
[2018-12-23] MEDS: HYDROGEL DRESSING 90 GM TUBE TP SCH (08:24)
[2018-12-23] MEDS ORDERED: POTASSIUM CHLORIDE 20 MEQ TAB.PRT.SR PO SCH (10:00)
[2018-12-23] MEDS: INSULIN REGULAR, HUMAN 100 UNIT/ML 3 ML VIAL SQ PRN ×2 (11:38→22:05)
[2018-12-23 16:00] VITALS: BP 100/50
--- NOTE | 2018-12-23 18:33 | NUR ---
MS RN CLOSING NOTES PT IN BED, AWAKE. A/O X3. PT ON SUPPLEMENTARY OXYGEN AT 2L VIA NC, WITH NO ACUTE RESPIRATORY DISTRESS NOTED. PT DENIES PAIN OR ANY DISCOMFORT AT THIS MOMENT. IVF NS AT 75ML/HR TO JOSE RAFAEL PICC LINE, INTACT AND FLUID INFUSING WELL. PIV LAC G18, FLUSHED WITH NS, INTACT AND OPERATIONAL. FC IN PLACE WITH CLEAR YELLOW URINE IN THE BAG. PT KEPT COMFORTABLE. ALL NEEDS AND CARE ATTENDED. PT'S BED IN LOWEST, LOCKED POSITION WITH SRX3. CALL LIGHT KEPT WITHIN REACH. WILL ENDORSE TO INCOMING NIGHT NURSE FOR CARMENZA.
[2018-12-23 20:00] VITALS: BP 109/55
--- NOTE | 2018-12-23 20:00 | NUR ---
MS RN NOTES RECEIVED PATIENT AWAKE IN BED AND WATCHING TV WITH NO DISTRESS NOTED. CALL LIGHT WITHIN REACH. NO C/O PAIN OR DISCOMFORT. PERIPHERAL LINE IN LAC REMOVED D/T LEAKING AND TOLERATED WELL. NO ACTIVE BLEEDING NOTED. JOSE RAFAEL PICC LINE REMAINS INTACT AND PATENT.. FC INTACT AND PATENT. CONTACT ISOLATION OBSERVED AND MAINTAINED. ENCOURAGED USE OF CALL LIGHT FOR ASSISTANCE AND VERBALIZED GOOD UNDERSTANDING. ROOM FREE OF CLUTTER AND BELONGINGS KEPT NEAR BEDSIDE. BED IN LOW LOCK SETTING. WILL CONTINUE TO MONITOR.
[2018-12-23] MEDS: PREGABALIN 25 MG CAPSULE PO SCH (21:53)
[2018-12-23] MEDS: INSULIN GLARGINE, 100 UNIT/ML CARTRIDGE SQ SCH (22:06)
[2018-12-24 07:01] LABS: CARBON DIOXIDE 22 mmol/L (21-32); CHLORIDE 111 mmol/L (98-107); CREATININE 1.2 mg/dL (0.6-1.3); GLUCOSE 77 mg/dL (74-106); POTASSIUM 3.3 mmol/L (3.5-5.1); SODIUM SERUM 142 mmol/L (136-145); UREA NITROGEN, BLOOD 16 mg/dL (7-18)
--- NOTE | 2018-12-24 07:03 | NUR ---
MS RN NOTES PATIENT ASLEEP IN BED WITH NO DISTRESS NOTED. CALL LIGHT WITHIN REACH. ALL DUE MEDS GIVEN ORDERED WITH NO ASE NOTED. PICC LINE INTACT AND PATENT. FC INTACT AND PATENT. NO FURTHER C/O PAIN OR DISCOMFORT. CONTACT ISOLATION OBSERVED AND MAINTAINED AT ALL TIMES. BED IN LOW LOCK SETTING. ROOM FREE OF CLUTTER AND BELONGINGS KEPT NEAR BEDSIDE. WILL CONTINUE TO MONITOR.
[2018-12-24] MEDS: BLOOD SUGAR DIAGNOSTIC 1 EACH STRIP IN SCH ×4 (07:17→21:25)
--- NOTE | 2018-12-24 07:45 | NUR ---
M/S RN NOTES PATIENT RESTING IN BED, NO RESPIRATORY DISTRESS NOTED, PATIENT ON 02 AT 2L VIA NASAL CANULA. PATIENT WITH NO C/O PAIN AT THIS TIME. PATIENT WITH IV OF NS INFUSING AT 75ML/HR ON THE JOSE RAFAEL PICC LINE, INTACT AND PATENT. F/C INTACT AND DRAINING YELLOW URINE. PATIENT'S NEEDS ATTENDED. BED ON LOWEST LOCKED POSITION, CALL LIGHT WITHIN REACH, WILL CONTINUE TO MONITOR.
[2018-12-24] MEDS: LEVOTHYROXINE SODIUM 100 MCG TABLET PO SCH (07:56)
[2018-12-24] MEDS: SUCRALFATE 1 G TABLET PO SCH ×4 (07:56→21:25)
[2018-12-24 08:00] VITALS: BP 114/57
[2018-12-24] MEDS ORDERED: POTASSIUM CHLORIDE 20 MEQ POWDER PACKET PO ONE (09:00)
[2018-12-24] MEDS: NEXIUM 40 MG VIAL IV SCH (09:07)
[2018-12-24] MEDS: LACTOBACILLUS RHAMNOSUS GG 1 EACH CAP.SPRINK PO SCH ×2 (09:07→17:20)
[2018-12-24] MEDS: MEROPENEM 1 G in IV NS 0.9% 100 ML IV SCH ×2 (09:07→20:16)
[2018-12-24] MEDS: SERTRALINE HCL 50 MG TABLET PO SCH (09:08)
[2018-12-24] MEDS: RAMIPRIL 1.25 MG CAPSULE PO SCH (09:08)
[2018-12-24] MEDS: ASCORBIC ACID 500 MG TABLET PO SCH (09:08)
[2018-12-24] MEDS: MULTIVITAMINS,THERAGRAN 1 UDTAB TABLET PO SCH (09:08)
[2018-12-24] MEDS: CLOTRIMAZOLE 1% 15 GM TUBE TP SCH ×2 (09:42→17:22)
[2018-12-24] MEDS: HYDROGEL DRESSING 90 GM TUBE TP SCH (09:43)
[2018-12-24] MEDS: INSULIN REGULAR, HUMAN 100 UNIT/ML 3 ML VIAL SQ PRN (12:04)
[2018-12-24] MEDS: PROSOURCE / PROSTAT (PYXIS) 30 ML UDC GT SCH ×2 (13:40→17:20)
[2018-12-24 16:00] VITALS: BP 114/60
--- NOTE | 2018-12-24 18:50 | NUR ---
M/S RN NOTES PATIENT AWAKE IN BED, NO RESPIRATORY DISTRESS, NO C/O PAIN AT THIS TIME. IV NS RUNNING AT 75ML/HR ON THE JOSE RAFAEL PICC LINE, INTACT AND PATENT. PATIENT'S NEEDS ATTENDED. BED ON LOWEST LOCKED POSITION, CALL LIGHT WITHIN REACH. WILL ENDORSE TO ONCOMING NURSE.
[2018-12-24] MEDS: IV NS 0.9% 1,000 ML IV PRN (18:57)
--- NOTE | 2018-12-24 19:37 | NUR ---
RN MS OPENING NOTES RECEIVED PT IN BED, AWAKE ALERT ORIENTED X2-3 BREATHING EVEN AND UNLABORED ON 2L O2 NC. NO COMPLAINT OF PAIN OR DISCOMFORT AT THE MOMENT. JOSE RAFAEL PICC LINE IN PLACE WITH NS 75ML/HR. F/C IN PLACE AND COLLECTING. BED IN LOWEST LOCKED POSITION CALL LIGHT WITHIN REACH AT ALL TIMES WILL CONTINUE TO MONITOR FREQUENTLY.
[2018-12-24 20:00] VITALS: BP 133/58
[2018-12-24] MEDS: PANTOPRAZOLE 40 MG TABLET.DR PO SCH (21:25)
[2018-12-24] MEDS: PREGABALIN 25 MG CAPSULE PO SCH (21:25)
[2018-12-24] MEDS: INSULIN GLARGINE, 100 UNIT/ML CARTRIDGE SQ SCH (21:38)
[2018-12-25] MEDS: INSULIN REGULAR, HUMAN 100 UNIT/ML 3 ML VIAL SQ PRN ×2 (00:09→12:28)
--- NOTE | 2018-12-25 06:05 | NUR ---
RAVI MS OPENING NOTES PT REMAINS IN BED, SLEEPING, EASILY AROUSED TO NAME CALL BREATHING EVEN AND UNLABORED ON 2L O2 NC. NO COMPLAINT OF PAIN OR DISCOMFORT AT THE MOMENT. JOSE RAFAEL PICC LINE IN PLACE WITH NS 75ML/HR. F/C IN PLACE AND COLLECTING. BED IN LOWEST LOCKED POSITION CALL LIGHT WITHIN REACH AT ALL TIMES WILL ENDORSE TO DAY NURSE FOR CARMENZA Addendum: 12/25/18 at 0701 by HOSEA DUMONT RN CLOSING NOTES
[2018-12-25 06:27] LABS: BASOPHILS # (AUTO) 0.1 /CMM (0.0-0.2); BASOPHILS % (AUTO) 0.7 % (0.0-2.0); EOSINOPHILS % (AUTO) 2.5 % (0.0-6.0); HEMATOCRIT 22 % (33-45); HEMOGLOBIN 7.1 g/dL (11.5-14.8); LYMPHOCYTES # (AUTO) 1.5 /CMM (0.8-4.8); LYMPHOCYTES % (AUTO) 13.2 % (20.0-44.0); MEAN CORPUSCULAR HGB CONC 32 g/dl (31.0-36.0); MEAN CORPUSCULAR VOLUME 78 fL (82-100); MONOCYTES # (AUTO) 0.8 /CMM (0.1-1.30); MONOCYTES % (AUTO) 7.1 % (2.0-12.0); NEUTROPHILS # (AUTO) 8.9 /CMM (1.8-8.9); NEUTROPHILS % (AUTO) 76.5 % (43.0-81.0); PLATELET COUNT (AUTO) 340 /CMM (150-450); RED BLOOD CELL COUNT(AUTO) 2.83 MIL/uL (4.0-5.2); WHITE BLOOD COUNT (AUTO) 11.7 K/uL (4.3-11.0)
[2018-12-25 06:33] LABS: ALANINE AMINOTRANSFERASE < 6 U/L (12-78); ALKALINE PHOSPHATASE 48 U/L (46-116); ASPARTATE AMINOTRANSFERASE 11 U/L (15-37); BILIRUBIN,TOTAL 0.2 mg/dL (0.2-1.0); CALCIUM, SERUM 7.6 mg/dL (8.5-10.1); CARBON DIOXIDE 23 mmol/L (21-32); CHLORIDE 109 mmol/L (98-107); CREATININE 1.1 mg/dL (0.6-1.3); GLUCOSE 56 mg/dL (74-106); MAGNESIUM 1.4 mg/dL (1.8-2.4); PHOSPHORUS 2.5 mg/dL (2.5-4.9); POTASSIUM 3.6 mmol/L (3.5-5.1); SODIUM SERUM 141 mmol/L (136-145); TOTAL PROTEIN, SERUM 5.1 g/dL (6.4-8.2); UREA NITROGEN, BLOOD 16 mg/dL (7-18)
[2018-12-25] MEDS: BLOOD SUGAR DIAGNOSTIC 1 EACH STRIP IN SCH ×2 (06:56→12:26)
--- NOTE | 2018-12-25 07:01 | NUR ---
BLOOD GLUCOSE OF 56- ORANGE JUICE GIVEN PROTOCOL, WILL RECHECK IN 30 MIN
--- NOTE | 2018-12-25 07:11 | NUR ---
OPENING RECEIVED PT IN BED, AWAKE ALERT ORIENTED X2-3 BREATHING EVEN AND UNLABORED ON 2L O2 NC. NO COMPLAINT OF PAIN OR DISCOMFORT AT THE MOMENT. JOSE RAFAEL PICC LINE IN PLACE WITH NS 75ML/HR. F/C IN PLACE AND COLLECTING. BED IN LOWEST LOCKED POSITION CALL LIGHT WITHIN REACH AT ALL TIMES WILL CONTINUE TO MONITOR FREQUENTLY.
[2018-12-25] MEDS: LEVOTHYROXINE SODIUM 100 MCG TABLET PO SCH (07:29)
[2018-12-25] MEDS: SUCRALFATE 1 G TABLET PO SCH ×2 (07:29→12:26)
[2018-12-25] MEDS: PROSOURCE / PROSTAT (PYXIS) 30 ML UDC GT SCH (09:18)
[2018-12-25] MEDS: MEROPENEM 1 G in IV NS 0.9% 100 ML IV SCH (09:19)
[2018-12-25] MEDS: RAMIPRIL 1.25 MG CAPSULE PO SCH (09:19)
[2018-12-25] MEDS: ASCORBIC ACID 500 MG TABLET PO SCH (09:20)
[2018-12-25] MEDS: HYDROGEL DRESSING 90 GM TUBE TP SCH (09:20)
[2018-12-25] MEDS: PANTOPRAZOLE 40 MG TABLET.DR PO SCH (09:20)
[2018-12-25] MEDS: MULTIVITAMINS,THERAGRAN 1 UDTAB TABLET PO SCH (09:20)
[2018-12-25] MEDS: LACTOBACILLUS RHAMNOSUS GG 1 EACH CAP.SPRINK PO SCH (09:20)
[2018-12-25] MEDS: SERTRALINE HCL 50 MG TABLET PO SCH (09:20)
[2018-12-25] MEDS: CLOTRIMAZOLE 1% 15 GM TUBE TP SCH (09:21)
[2018-12-25] MEDS: Magnesium 1GM/D5W 100ML PREMIX 100 ML IV SCH ×4 (12:25→15:04)
--- NOTE | 2018-12-25 16:21 | NUR ---
REPORT GAVE RN REPORT TO ALEXA FROM [address] [place] [address] . ETA [phone]
[2018-12-25 17:15] VITALS: BP 135/66
--- NOTE | 2018-12-25 17:16 | NUR ---
DISCHARGE PT DISCHARGE TO [address] [place] [address] BY [facility]BARA CHAUDHRY [address] PT LEAVING WITH SILVER AND PICC WHICH IS IN JOSE RAFAEL ACI AND MEDICATION RECONCILIATION GIVEN TO AGENTS ALONG WITH DISCHARGE EDUCATION PT MEDICALLY STABLE AFEBRILE
== END 2018-12-25 17:10 | DRG 853 ==
LOC: ER 07:59 → ICU 10:53 → TELE 12-18 10:17 → MED 12-19 11:41
PROVIDERS: ADMIT Nurse Practitioner Acute Care; ATTEND Nurse Practitioner Acute Care
PROC: 02HV33Z Insertion of Infusion Device into Superior Vena Cava, Percutaneous Approach (ICD-10-PCS; principal; 2018-12-17)
PROC: B548ZZA Ultrasonography of Superior Vena Cava, Guidance (ICD-10-PCS; 2018-12-17)
PROC: 30233N1 Transfusion of Nonautologous Red Blood Cells into Peripheral Vein, Percutaneous Approach (ICD-10-PCS; 2018-12-17)
PROC: 0JB90ZZ Excision of Buttock Subcutaneous Tissue and Fascia, Open Approach (ICD-10-PCS; 2018-12-19)
DX: A41.9 Sepsis, unspecified organism (principal); L89.153 Pressure ulcer of sacral region, stage 3; E43 Unspecified severe protein-calorie malnutrition; G93.41 Metabolic encephalopathy; R65.21 Severe sepsis with septic shock; J69.0 Pneumonitis due to inhalation of food and vomit; N17.0 Acute kidney failure with tubular necrosis; E11.10 Type 2 diabetes mellitus with ketoacidosis without coma; D62 Acute posthemorrhagic anemia; K92.2 Gastrointestinal hemorrhage, unspecified; N39.0 Urinary tract infection, site not specified; N18.9 Chronic kidney disease, unspecified; B96.20 Unspecified Escherichia coli [E. coli] as the cause of diseases classified elsewhere; E03.9 Hypothyroidism, unspecified; E11.22 Type 2 diabetes mellitus with diabetic chronic kidney disease; I25.10 Atherosclerotic heart disease of native coronary artery without angina pectoris; Z16.12 Extended spectrum beta lactamase (ESBL) resistance; Z79.4 Long term (current) use of insulin; E87.6 Hypokalemia; R74.0 Nonspecific elevation of levels of transaminase and lactic acid dehydrogenase [LDH]; D47.3 Essential (hemorrhagic) thrombocythemia; E88.09 Other disorders of plasma-protein metabolism, not elsewhere classified; Z68.28 Body mass index [BMI] 28.0-28.9, adult; D50.9 Iron deficiency anemia, unspecified; Z66 Do not resuscitate; R53.1 Weakness
CPT/HCPCS: 36415; 36569; 71045-TC; 80048-TC; 80053-TC; 80061-TC; 80076-TC; 80202-TC; 81000-TC; 82272-TC; 82728-TC; 82962-TC; 83540-TC; 83605-TC; 83735-TC; 84100-TC; 84443-TC; 84484-TC; 85025-TC; 85027-TC; 85730-TC; 86850-TC; 86921-TC; 87040-TC; 87081-TC; 87086-TC; 87186-TC; 92526; 92611-TC; A6248; C1751; C1769; G0378; J1815; J2185; J2543; J3370; J3475; J3480; J7030; J7050; J7060; P9016-BL

== ENCOUNTER 2019-03-20 20:58 | Inpatient (IN) | payer MEDICARE ==
[~2019-03-20] VITALS: Ht 162.6 cm; Wt 73.0 kg
[~2019-03-20 20:58] MED LIST changes: +ASCO500T9 PO; +BISA10SU61 RC; -CLOT15CR35 TP; -DOXY100T2 PO; -LEVO750T21 PO; +MULT-661 PO; +NA P133E RC; +PREG75CA PO; +PROT946L PO; +TYL2T PO
[2019-03-20] MEDS ORDERED: MAGN400O21 PO (21:17)
[2019-03-20] MEDS ORDERED: SENN-168 PO (21:17)
[2019-03-20 21:29] LABS: BASOPHILS % (AUTO) 0.2 % (0.0-2.0); HEMATOCRIT 32 % (33-45); LYMPHOCYTES # (AUTO) 1.1 /CMM (0.8-4.8); LYMPHOCYTES % (AUTO) 6.6 % (20.0-44.0); MEAN CORPUSCULAR HGB CONC 31 g/dl (31.0-36.0); MEAN CORPUSCULAR VOLUME 80 fL (82-100); MONOCYTES # (AUTO) 0.5 /CMM (0.1-1.30); MONOCYTES % (AUTO) 2.8 % (2.0-12.0); NEUTROPHILS # (AUTO) 15.1 /CMM (1.8-8.9); NEUTROPHILS % (AUTO) 90.4 % (43.0-81.0); PLATELET COUNT (AUTO) 387 /CMM (150-450); RED BLOOD CELL COUNT(AUTO) 4.06 MIL/uL (4.0-5.2); WHITE BLOOD COUNT (AUTO) 16.7 K/uL (4.3-11.0)
[2019-03-20] MEDS ORDERED: IV NS 0.9% 1,000 ML BAG IV ONE ×2 (21:30→22:00)
--- NOTE | 2019-03-20 21:40 | NUR ---
IN-N-OUT CATHETER DONE AND URINE SAMPLE RECEIVED.
--- NOTE | 2019-03-20 21:47 | NUR ---
PT BIB RA FOR LOW BLOOD PRESSURE AT 77/41. PT AT BED 8, AAOX4. NO SOB. BREATHING EVENLY AND UNLABORED. NAD. DENIES PAIN. CONNECTED TO MONITOR.
[2019-03-20] MEDS ORDERED: PIPERACILLIN /TAZOBACTAM 3.375 G in IV D5W 50 ML IV ONE (22:00)
[2019-03-20] MEDS ORDERED: ALBUMIN 25% 12.5 GM/50 ML BOTTLE IV ONE (22:00)
[2019-03-20 22:09] LABS: APPEARANCE,URINE Slightly Cloudy (CLEAR); BLOOD, URINE Large Ery/uL (NEGATIVE); KETONES,URINE Trace (NEGATIVE); LEUKOCYTE ESTERASE ,URINE Large (NEGATIVE); NITRITE, URINE Negative (NEGATIVE); PROTEIN,URINE 100 mg/dl (NEGATIVE); UGLUCOSE Negative (NEGATIVE); UROBILINOGEN,URINE 0.2 EU/dL (0.2)
[2019-03-20 22:10] LABS: COLOR,URINE YELLOW (YELLOW)
[2019-03-20 22:11] LABS: BILIRUBIN,URINE SMALL (NEGATIVE)
[2019-03-20] MEDS ORDERED: PIPERACILLIN /TAZOBACTAM 3.375 G VIAL IV ONE (22:14)
[2019-03-20 22:15] LABS: CALCIUM, SERUM 8.7 mg/dL (8.5-10.1); CARBON DIOXIDE 22 mmol/L (21-32); CHLORIDE 102 mmol/L (98-107); CREATININE 1.9 mg/dL (0.6-1.3); GLUCOSE 160 mg/dL (74-106); POTASSIUM 3.5 mmol/L (3.5-5.1); SODIUM SERUM 137 mmol/L (136-145); UREA NITROGEN, BLOOD 36 mg/dL (7-18)
--- NOTE | 2019-03-20 22:16 | NUR ---
NO ALBUMIN IN OMNICELL, ORDERS FAXED TO NURSING INDUSTRIAL PHARMACIST
[2019-03-20] MEDS ORDERED: ALBUMIN 25% 100 ML IV ONE (22:19)
[2019-03-20 22:20] LABS: ALANINE AMINOTRANSFERASE 10 U/L (12-78); ALBUMIN 2.1 g/dL (3.4-5.0); ALKALINE PHOSPHATASE 44 U/L (46-116); ASPARTATE AMINOTRANSFERASE 19 U/L (15-37); BILIRUBIN,DIRECT 0.1 mg/dL (0.0-0.2); BILIRUBIN,TOTAL 0.2 mg/dL (0.2-1.0); TOTAL PROTEIN, SERUM 7.1 g/dL (6.4-8.2)
[2019-03-20 22:21] LABS: BACTERIA,URINE 1+ /HPF (None Seen); RBC,URINE 51-80 /HPF (0-2); SQUAMOUS EPITHELIAL CELL,UR Few /HPF (None Seen); WBC,URINE TOO NUMEROUS TO COUN /HPF (0-3)
--- NOTE | 2019-03-20 22:36 | NUR ---
PT RESTING COMFORTABLY NO ACUTE DISTRESS NOTED, RESP EVEN AND UNLABORED. PT DENIES PAIN OR DISCOMFORT AT THIS TIME. CALL LIGHT WITHINR EACH. WILL CONTINUE TO MONITOR PT CLOSELY.
--- NOTE | 2019-03-20 22:38 | NUR ---
ER SPOKE TO JEMMA MARTINEZ DNP REGARDING PT ADMISSION.
[2019-03-20] MEDS ORDERED: Z GUARD REMEDY 2 OZ OINT TP PRN (23:00)
[2019-03-20] MEDS ORDERED: ONDANSETRON HCL/PF 4 MG/2 ML VIAL IVP PRN (23:00)
[2019-03-20] MEDS ORDERED: ACETAMINOPHEN 325 MG TABLET PO PRN (23:00)
[2019-03-20] MEDS ORDERED: MAGNESIUM HYDROXIDE 30 ML UDC PO PRN (23:00)
[2019-03-20] MEDS ORDERED: HYDROCODONE/APAP 5/325MG 1 EACH TABLET PO PRN (23:00)
[2019-03-20] MEDS ORDERED: ZOLPIDEM TARTRATE 5 MG TABLET PO PRN (23:00)
[2019-03-20] MEDS ORDERED: MAG HYDROX/AL HYDROX/SIMETH 30 ML UDC PO PRN (23:00)
[2019-03-20] MEDS ORDERED: NOREPINEPHRINE 8 MG in IV D5W 500 ML IV PRN (23:00)
--- NOTE | 2019-03-20 23:00 | NUR ---
JEMMA MARTINEZ DNP AT BEDSIDE TO OLAYINKA DAMON.
[2019-03-20] MEDS ORDERED: DEXTROSE 50%-WATER 50 ML DISP.SYRIN IV PRN (23:30)
--- NOTE | 2019-03-20 23:38 | NUR ---
SPOKE WITH RAVI PERRY FROM [facility] AND INFORMED PT WILL BE ADMITTED TO [facility]. ALSO PER RAVI PERRY, PT IS FULL CODE
[2019-03-21] VITALS (68 sets, daily range): BP systolic 11–128; BP diastolic 35–71
[2019-03-21] MEDS ORDERED: IV NS 0.9% 1,000 ML BAG IV ONE
--- NOTE | 2019-03-21 00:26 | NUR ---
PT APPEARS, ASLEEP, EASILY AROUSABLE, NO ACUTE DISTRESS NOTED, RESP EVEN AND UNLABORED. CALL LIGHT WITHIN REACH. WILL CONTINUE TO MONITOR PT CLOSELY.
[2019-03-21] MEDS ORDERED: NOREPINEPHRINE 4 MG/4 ML AMPUL IV ONE (01:34)
--- NOTE | 2019-03-21 01:52 | NUR ---
levophed 8mg/8mL into 500ml of d5W given at 1mcg/min. Baseline vitals in "Vitals Assessment".
[2019-03-21] MEDS ORDERED: NOREPINEPHRINE 8 MG in IV D5W 500 ML IV PRN (02:00)
--- NOTE | 2019-03-21 02:01 | NUR ---
REPORT CALLED TO DIRECTOR OF CATERING SALESRAVI PETTY.
[2019-03-21] MEDS: IV NS 0.9% 1,000 ML IV PRN ×2 (02:54→17:06)
[2019-03-21] MEDS: NOREPINEPHRINE 8 MG in IV D5W 500 ML IV PRN ×2 (02:56→18:16)
--- NOTE | 2019-03-21 02:56 | NUR ---
CRAPS DEALER NOTES RECEIVED PT FROM ER NURSE. ON STRETCHER. PT A/O X 2, ON TELE MONITOR SR 87. ON NASAL CANNULA 2LPM NO RESPIRATORY DISTRESS NOTED. IV ACCESS ON LAC G18 WITH AND RAC G20 LEVO RUNNING @1MCG. HEAD OF BED ELEVATED, SIDE RAILS UP. BED IN LOW LOCKED POSITION. CALL LIGHT WITHIN REACH. WILL MONITOR PT CLOSELY.
[2019-03-21] MEDS: PIPERACILLIN /TAZOBACTAM 3.375 G in IV D5W 50 ML IV SCH ×5 (03:16→23:41)
[2019-03-21 03:18] LABS: BASOPHILS % (AUTO) 0.3 % (0.0-2.0); HEMATOCRIT 31 % (33-45); HEMOGLOBIN 9.7 g/dL (11.5-14.8); LYMPHOCYTES # (AUTO) 1.9 /CMM (0.8-4.8); LYMPHOCYTES % (AUTO) 11.6 % (20.0-44.0); MEAN CORPUSCULAR HGB CONC 32 g/dl (31.0-36.0); MEAN CORPUSCULAR VOLUME 79 fL (82-100); MONOCYTES # (AUTO) 0.8 /CMM (0.1-1.30); NEUTROPHILS # (AUTO) 13.3 /CMM (1.8-8.9); NEUTROPHILS % (AUTO) 83.1 % (43.0-81.0); PLATELET COUNT (AUTO) 345 /CMM (150-450); RED BLOOD CELL COUNT(AUTO) 3.89 MIL/uL (4.0-5.2)
[2019-03-21 03:28] LABS: ALANINE AMINOTRANSFERASE 7 U/L (12-78); ALBUMIN 2.2 g/dL (3.4-5.0); ALKALINE PHOSPHATASE 36 U/L (46-116); ASPARTATE AMINOTRANSFERASE 17 U/L (15-37); BILIRUBIN,TOTAL 0.2 mg/dL (0.2-1.0); CALCIUM, SERUM 7.8 mg/dL (8.5-10.1); CARBON DIOXIDE 20 mmol/L (21-32); CHLORIDE 106 mmol/L (98-107); CREATININE 1.6 mg/dL (0.6-1.3); GLUCOSE 154 mg/dL (74-106); MAGNESIUM 1.3 mg/dL (1.8-2.4); POTASSIUM 3.1 mmol/L (3.5-5.1); SODIUM SERUM 139 mmol/L (136-145); TOTAL PROTEIN, SERUM 6.5 g/dL (6.4-8.2); UREA NITROGEN, BLOOD 34 mg/dL (7-18)
[2019-03-21 04:38] LABS: IRON, SERUM 13 ug/dl (50-175); TOTAL IRON BINDING CAPACITY 124 ug/dl (250-450)
[2019-03-21 05:15] LABS: THYROID STIMULATING HORMONE 0.712 uIU/mL (0.358-3.74); TRIGLYCERIDES 160 mg/dL (30-150)
[2019-03-21 05:16] LABS: CHOLESTEROL 76 mg/dL (<200); HDL CHOLESTEROL 28 mg/dL (40-60); LDL 26 mg/dL (0-99)
[2019-03-21] MEDS ORDERED: PIPERACILLIN /TAZOBACTAM 3.375 G VIAL IV ONE (05:32)
--- NOTE | 2019-03-21 07:30 | NUR ---
AUTOMOBILE RENTAL CLERK INITIAL NOTE RECEIVED PATIENT ASLEEP, AROUSABLE, SLEEPY, ALERT AND ORIENTED. DENIES PAIN OR DISCOMFORT. THERESA SOB. ON 2LPMO2 VIA NC. ON TELE MONITOR SR. PATIENT ON LEVO AT 10MCG/MIN. HOB ELEVATED. SIDE RAILS UP AND LOCKED. BED KEPT AT LOWEST POSITION. CALL LIGHT KEPT WITHIN EASY REACH. WILL CONTINUE TO MONITOR.
[2019-03-21] MEDS ORDERED: LACT1CAP72 PO (07:59)
[2019-03-21] MEDS ORDERED: BLOO-668 IN (07:59)
[2019-03-21] MEDS ORDERED: INSU100I19 SQ (07:59)
[2019-03-21] MEDS: HEPARIN SODIUM, PORCINE 5000 UNITS/1 ML VIAL SQ SCH ×2 (08:08→21:12)
[2019-03-21] MEDS: Magnesium 1GM/D5W 100ML PREMIX 100 ML IV SCH ×2 (08:09→09:08)
[2019-03-21] MEDS: INSULIN REGULAR, HUMAN 100 UNIT/ML 3 ML VIAL SQ PRN ×4 (08:09→21:13)
[2019-03-21] MEDS: POTASSIUM CL. PREMIX PERIPHER. 50 ML IV SCH ×4 (08:10→11:30)
[2019-03-21] MEDS: BLOOD SUGAR DIAGNOSTIC 1 EACH STRIP IN SCH ×4 (08:10→21:12)
[2019-03-21] MEDS: PANTOPRAZOLE 40 MG VIAL IV SCH (08:10)
--- NOTE | 2019-03-21 08:30 | NUR ---
VENETIAN BLIND MECHANIC NOTE SEEN AND EXAMINED BY ST, WITH GOOD SWALLOWING. OK TO START DIET PER ST. WILL CONTINUE TO MONITOR.
--- NOTE | 2019-03-21 10:42 | NUR ---
agricultural produce commission agent note PICC line nurse at bedside
--- NOTE | 2019-03-21 11:29 | NUR ---
MELLOWING MACHINE OPERATOR NOTE INFORMED DR. GOLDBERG REGARDING RECONCILING MEDICATIONS. HE WILL TAKE CARE OF IT.
--- NOTE | 2019-03-21 17:42 | NUR ---
curriculum development coordinator note informed dr. kellogg, patient has great fluid intake, ok to dc IVF.
--- NOTE | 2019-03-21 19:26 | NUR ---
POWER PLANT ENGINEER NOTE PATIENT RECEIVED IN BED A/O X 4 IN BED WATCHING TV. PATIENT HAS NO S/S OF RESP DISTRESS AT THIS TIME. PATIENT ON 2L NC DENIES SOB/ INCREASED WORK OF BREATHING. PATIENT DENIES CHEST PAIN HR SR ON THE MONITOR HR 83. PATIENT NOTED TO HAVE WET DIAPER. DIAPER CHANGED WITH DAY RN STEFF. PATIENT TURNED AND OFFLOADED LEFT SIDE OF BODY AND BOTH HEELS. POC AND CALL LIGHT INSTRUCTIONS DISCUSSED WITH PATIENT. PATIENT VERBALIZED UNDERSTANDING. PATIENT HAS LRUA PICC LINE RUNNING LEVO AT 6MCG. PICC PATENT AND INTACT NO S/S OF INFECTION OR INFILTRATION. BLOOD PRESSURE WNL. SAFETY PRECAUTIONS IN PLACE. SIDE RAILS UP X 2
[2019-03-21] MEDS: INSULIN GLARGINE, 100 UNIT/ML CARTRIDGE SQ SCH (21:13)
[2019-03-22] VITALS (40 sets, daily range): BP systolic 88–126; BP diastolic 37–93
[2019-03-22 04:32] LABS: BASOPHILS # (AUTO) 0.1 /CMM (0.0-0.2); BASOPHILS % (AUTO) 0.8 % (0.0-2.0); EOSINOPHILS % (AUTO) 1.2 % (0.0-6.0); HEMATOCRIT 26 % (33-45); HEMOGLOBIN 8.2 g/dL (11.5-14.8); LYMPHOCYTES % (AUTO) 19.8 % (20.0-44.0); MEAN CORPUSCULAR HGB CONC 31 g/dl (31.0-36.0); MEAN CORPUSCULAR VOLUME 79 fL (82-100); MONOCYTES # (AUTO) 0.9 /CMM (0.1-1.30); MONOCYTES % (AUTO) 6.1 % (2.0-12.0); NEUTROPHILS % (AUTO) 72.1 % (43.0-81.0); PLATELET COUNT (AUTO) 259 /CMM (150-450); RED BLOOD CELL COUNT(AUTO) 3.32 MIL/uL (4.0-5.2); WHITE BLOOD COUNT (AUTO) 15.3 K/uL (4.3-11.0)
[2019-03-22 04:44] LABS: CALCIUM, SERUM 7.6 mg/dL (8.5-10.1); CREATININE 1.2 mg/dL (0.6-1.3); MAGNESIUM 1.5 mg/dL (1.8-2.4); PHOSPHORUS 2.3 mg/dL (2.5-4.9); POTASSIUM 3.2 mmol/L (3.5-5.1)
[2019-03-22] MEDS: PIPERACILLIN /TAZOBACTAM 3.375 G in IV D5W 50 ML IV SCH ×3 (05:03→17:52)
--- NOTE | 2019-03-22 07:30 | NUR ---
RN NOTES RECEIVED PATIENT IN BED. ASLEEP BUT EASILY AWAKEN BY VERBAL STIMULI. A/O X 4. ABLE TO MAKE NEEDS KNOWN. ON ROOM AIR. BREATHING UNLABORED.NO S/S OF RESP DISTRESS AT THIS TIME. PATIENT DENIES PAIN OF ANY KIND. SR ON THE MONITOR HR 80s. WITH ONGOING LEVOPHED AT 4MCG/MIN INFUSING OVER THE JOSE RAFAEL PICC LINE. SITE CLEAN AND INTACT. PATIENT ENCOURAGE TO CLL FOR HELP/ ASSISTANCE. TO VERBALIZE FEELINGS AND CONCERNS. CALL LIGHT LEFT WITHIN REACH AND INSTRUCTIONS DISCUSSED WITH PATIENT. SAFETY MEASURES OBSERVED AND MAINTAINED. SRX2 UP. BED IN LOW AND LOCKED POSITIONED. WILL CONTINUE TO MONITOR PATIENT CLOSELY
[2019-03-22] MEDS: BLOOD SUGAR DIAGNOSTIC 1 EACH STRIP IN SCH ×4 (08:49→21:40)
[2019-03-22] MEDS: PANTOPRAZOLE 40 MG VIAL IV SCH (08:50)
[2019-03-22] MEDS: HEPARIN SODIUM, PORCINE 5000 UNITS/1 ML VIAL SQ SCH ×2 (08:51→21:40)
[2019-03-22] MEDS ORDERED: K PHOS NEUTRAL 250 MG TABLET PO ONE (10:00)
[2019-03-22] MEDS: Magnesium 1GM/D5W 100ML PREMIX 100 ML IV SCH ×2 (10:32→11:16)
[2019-03-22] MEDS: POTASSIUM CHLORIDE 20 MEQ TAB.PRT.SR PO SCH ×2 (10:33→11:16)
[2019-03-22] MEDS: INSULIN REGULAR, HUMAN 100 UNIT/ML 3 ML VIAL SQ PRN (12:34)
[2019-03-22] MEDS: NOREPINEPHRINE 8 MG in IV D5W 500 ML IV PRN (17:57)
--- NOTE | 2019-03-22 19:05 | NUR ---
RN OPENING NOTES RECEIVED PATIENT IN BED, AWAKE, A/OX4. ABLE TO MAKE NEEDS KNOWN. ON ROOM AIR, BREATHING UNLABORED. NO S/S OF RESP DISTRESS NOTED. PT DENIES ANY PAIN AT THE MOMENT. SR ON THE MONITOR HR 80'S. IV SITE JOSE RAFAEL PICC LINE WITH ONGOING LEVOPHED AT 2MCG/MIN. SITE CLEAN, DRY, AND INTACT. SAFETY MEASURES IN PLACE; CALL LIGHT WITHIN REACH, SIDE RAILS UP X2, BED LOCKED AND IN LOWEST POSITION. WILL CONTINUE TO MONITOR PATIENT CLOSELY.
--- NOTE | 2019-03-22 19:24 | NUR ---
RN NOTES ENDORSED PATIENT FOR CONTINUITY OF CARE. NOT ON ANY FORM OF DISTRESS. LEVOPHED INFUSING AT 2MCG/ MIN. HOB ELEVATED. SAFETY MEASURES IN PLACE AT ALL TIMES. CALL LIGHT WITHIN REACH
[2019-03-22] MEDS: INSULIN GLARGINE, 100 UNIT/ML CARTRIDGE SQ SCH (21:44)
--- NOTE | 2019-03-22 21:44 | NUR ---
RN NOTES PATIENT BLOOD GLUCOSE 111. WILL HOLD LANTUS 16 UNITS DUE AT 2200.
[2019-03-23] VITALS (68 sets, daily range): BP systolic 64–119; BP diastolic 33–70
[2019-03-23 04:57] LABS: CALCIUM, SERUM 8.2 mg/dL (8.5-10.1); CARBON DIOXIDE 25 mmol/L (21-32); CHLORIDE 107 mmol/L (98-107); GLUCOSE 92 mg/dL (74-106); MAGNESIUM 1.9 mg/dL (1.8-2.4); PHOSPHORUS 2.8 mg/dL (2.5-4.9); POTASSIUM 3.1 mmol/L (3.5-5.1); SODIUM SERUM 139 mmol/L (136-145); UREA NITROGEN, BLOOD 22 mg/dL (7-18)
[2019-03-23 05:13] LABS: BASOPHILS # (AUTO) 0.1 /CMM (0.0-0.2); BASOPHILS % (AUTO) 0.7 % (0.0-2.0); EOSINOPHILS % (AUTO) 3.3 % (0.0-6.0); HEMATOCRIT 27 % (33-45); HEMOGLOBIN 8.8 g/dL (11.5-14.8); LYMPHOCYTES # (AUTO) 2.6 /CMM (0.8-4.8); LYMPHOCYTES % (AUTO) 19.7 % (20.0-44.0); MEAN CORPUSCULAR HGB CONC 32 g/dl (31.0-36.0); MEAN CORPUSCULAR VOLUME 77 fL (82-100); MONOCYTES # (AUTO) 1.2 /CMM (0.1-1.30); MONOCYTES % (AUTO) 9.3 % (2.0-12.0); NEUTROPHILS # (AUTO) 8.7 /CMM (1.8-8.9); PLATELET COUNT (AUTO) 279 /CMM (150-450); RED BLOOD CELL COUNT(AUTO) 3.51 MIL/uL (4.0-5.2)
[2019-03-23] MEDS: PIPERACILLIN /TAZOBACTAM 3.375 G in IV D5W 50 ML IV SCH ×3 (05:46)
--- NOTE | 2019-03-23 06:53 | NUR ---
RN CLOSING NOTES PATIENT SLEEPING IN BED, BUT EASILY AWAKEN BY VERBAL STIMULI, A/OX4. ON ROOM AIR, BREATHING UNLABORED. NO S/S OF RESP DISTRESS NOTED. PT DENIES ANY PAIN AT THE MOMENT. SR ON THE MONITOR HR 70'S. IV SITE JOSE RAFAEL PICC LINE WITH ONGOING LEVOPHED AT 2MCG/MIN. SAFETY MEASURES MAINTAINED; CALL LIGHT WITHIN REACH, SIDE RAILS UP X2, BED LOCKED AND IN LOWEST POSITION. ALL NEEDS ANTICIPATED AND MET. WILL CONTINUE TO MONITOR PATIENT CLOSELY. WILL ENDORSE TO AM NURSE FOR CARMENZA.
--- NOTE | 2019-03-23 07:27 | NUR ---
Patient had chris vtach (4 vtachs) one time, will inform primary during rounds. BP 99/50 (65) mmhg. O2 sat 100%. HR 51 with BBB with inverted T waves. Patient responsive to pain. Intubated to vent (AC mode). Not in any form of respiratory distress. On diprivan drip @ 15 mcg, decreased @ 5 mcg. On GTube feeding, Jevity 50 ml per hour, tolerating well. Right femoral central line intact and patent, with A line with dampen waveform, flushed and calibrated. Awaiting for family's decision on comfort care.
[2019-03-23] MEDS ORDERED: POTASSIUM CHLORIDE 20 MEQ TAB.PRT.SR PO ONE (08:00)
[2019-03-23] MEDS: BLOOD SUGAR DIAGNOSTIC 1 EACH STRIP IN SCH ×4 (08:08→21:17)
[2019-03-23] MEDS: PANTOPRAZOLE 40 MG VIAL IV SCH (08:14)
[2019-03-23] MEDS: HEPARIN SODIUM, PORCINE 5000 UNITS/1 ML VIAL SQ SCH ×2 (08:17→21:21)
[2019-03-23] MEDS ORDERED: DOSING PER PHARMACY-AMIKACI IV XX PRN (10:00)
[2019-03-23] MEDS ORDERED: FEE PK DOSING 1 MIN EA MC ONE (10:25)
[2019-03-23] MEDS ORDERED: AMIKACIN 250 MG/ML VIAL IM SCH (11:00)
[2019-03-23] MEDS: AMIKACIN 350 MG in IV D5W 100 ML IV SCH (12:33)
[2019-03-23] MEDS: INSULIN REGULAR, HUMAN 100 UNIT/ML 3 ML VIAL SQ PRN ×2 (13:13→21:23)
--- NOTE | 2019-03-23 17:00 | NUR ---
Levophed drip dropped to 1 mcg/kg/hr but BP dropped to 64/60 mmhg (48). Levophed drip titrated back to 2 mcg/kg/hr.
[2019-03-23] MEDS: NOREPINEPHRINE 8 MG in IV D5W 500 ML IV PRN (17:47)
--- NOTE | 2019-03-23 21:15 | NUR ---
WINTERIZER NON ADMINISTERED LANTUS 16 UNITS SQ PT GLUCOSE IS 140 AT THIS TIME AND PT IS NOTED WITH DECREASES APPETITE. CONTINUE TO MONITOR.
[2019-03-23] MEDS: INSULIN GLARGINE, 100 UNIT/ML CARTRIDGE SQ SCH (21:17)
--- NOTE | 2019-03-23 23:59 | NUR ---
DATA TRANSCRIBER TITRATED LEVOPHED OFF PER PROTOCOL. CONTINUE TO MONITOR.
[2019-03-24] VITALS (41 sets, daily range): BP systolic 79–114; BP diastolic 32–64
[2019-03-24] MEDS: AMIKACIN 350 MG in IV D5W 100 ML IV SCH ×2 (04:15→23:00)
[2019-03-24 04:34] LABS: BASOPHILS # (AUTO) 0.1 /CMM (0.0-0.2); BASOPHILS % (AUTO) 0.5 % (0.0-2.0); EOSINOPHILS % (AUTO) 2.9 % (0.0-6.0); HEMATOCRIT 27 % (33-45); HEMOGLOBIN 8.8 g/dL (11.5-14.8); LYMPHOCYTES # (AUTO) 2.8 /CMM (0.8-4.8); MEAN CORPUSCULAR HGB CONC 32 g/dl (31.0-36.0); MEAN CORPUSCULAR VOLUME 78 fL (82-100); MONOCYTES % (AUTO) 9.6 % (2.0-12.0); NEUTROPHILS # (AUTO) 6.5 /CMM (1.8-8.9); PLATELET COUNT (AUTO) 283 /CMM (150-450); RED BLOOD CELL COUNT(AUTO) 3.53 MIL/uL (4.0-5.2); WHITE BLOOD COUNT (AUTO) 10.7 K/uL (4.3-11.0)
[2019-03-24 04:54] LABS: CALCIUM, SERUM 8.3 mg/dL (8.5-10.1); CARBON DIOXIDE 25 mmol/L (21-32); CHLORIDE 107 mmol/L (98-107); CREATININE 0.8 mg/dL (0.6-1.3); GLUCOSE 77 mg/dL (74-106); MAGNESIUM 1.7 mg/dL (1.8-2.4); PHOSPHORUS 3.3 mg/dL (2.5-4.9); POTASSIUM 3.7 mmol/L (3.5-5.1); SODIUM SERUM 140 mmol/L (136-145); UREA NITROGEN, BLOOD 18 mg/dL (7-18)
--- NOTE | 2019-03-24 07:30 | NUR ---
RN NOTES RECEIVED PATIENT IN BED. ASLEEP BUT EASILY AWAKEN BY VERBAL STIMULI. A/O X 4. ABLE TO MAKE NEEDS KNOWN. ON ROOM AIR. BREATHING UNLABORED.NO S/S OF RESP DISTRESS AT THIS TIME. PATIENT DENIES PAIN OF ANY KIND. SR ON THE MONITOR HR ON THE 80s. JOSE RAFAEL PICC AND LFA G 24 BOTH SALINE LOCK. SITE CLEAN AND INTACT. LEVOPHED ON HOLD SINCE MIDNIGHT PER REPORT. PATIENT ENCOURAGE TO CALL FOR HELP/ ASSISTANCE. TO VERBALIZE FEELINGS AND CONCERNS. CALL LIGHT LEFT WITHIN REACH AND INSTRUCTIONS DISCUSSED WITH PATIENT. SAFETY MEASURES OBSERVED AND MAINTAINED. SRX2 UP. BED IN LOW AND LOCKED POSITIONED. WILL CONTINUE TO MONITOR PATIENT CLOSELY
[2019-03-24] MEDS: Magnesium 1GM/D5W 100ML PREMIX 100 ML IV SCH ×2 (07:46→08:41)
[2019-03-24] MEDS: BLOOD SUGAR DIAGNOSTIC 1 EACH STRIP IN SCH ×4 (07:46→21:18)
[2019-03-24] MEDS: PANTOPRAZOLE 40 MG VIAL IV SCH (08:41)
[2019-03-24] MEDS: HEPARIN SODIUM, PORCINE 5000 UNITS/1 ML VIAL SQ SCH ×2 (08:46→21:39)
--- NOTE | 2019-03-24 17:00 | NUR ---
RN NOTES CONFIRMED WITH DR DR. GOLDBERG ON ORDERS ON HAVING THE PATIENT TRANSFERRED DOWN. INFORMED HIM THAT DESPITE HAVING SOME READING OF BLOOD PRESSURE AT 80/40 THE MAP IS MAINTAINED ABOVE 65MMHG MOST OF THE TIME DURING THE DAY. OBTAINED ORDER TO DOWN GRADE PATIENT TO MED- SURG. ORDER NOTED AND CARRIED OUT
--- NOTE | 2019-03-24 19:15 | NUR ---
RN NOTES ENDORSED FOR CONTINUITY OF CARE. NOT ON ANY FORM OF DISTRESS. ALL NURSING NEEDS ATTENDED AND MET. SAFETY MEASURES IN PLACE. CALL LIGHT WITHIN REACH
--- NOTE | 2019-03-24 19:41 | NUR ---
COPY OPERATOR. INITIAL ASSESSMENT RECEIVED THE PT REST ON THE BED. SLEEPING. PT ON ROOM AIR, SAT 97%. NO ACUTE DISTRESS NOTED. DENTIST/OWNER SHOWING NSR. IV RT UPPER ARM MID LINE SALINE LOCK. DENTIST/OWNER SHOWING NSR. HOB ELEVATED, WILL CONTINUE TO MONITOR VITALS.
[2019-03-24] MEDS: INSULIN GLARGINE, 100 UNIT/ML CARTRIDGE SQ SCH (21:40)
[2019-03-25] VITALS (8 sets, daily range): BP systolic 95–111; BP diastolic 47–68
--- NOTE | 2019-03-25 01:16 | NUR ---
TRANSIT VEHICLE INSPECTOR.2300 AMIKIN NOT GIVEN. WAITING FOR LEVEL BACK.
--- NOTE | 2019-03-25 01:18 | NUR ---
GRANITE SANDBLASTER APPRENTICE. TRANSFER THE PT TO [id number]. PT IS STABLE. REPORT GIVEN TO AKIKO RODRIGUES.
--- NOTE | 2019-03-25 01:30 | NUR ---
MS RN NOTES RECEIVED PATIENT,TRANSFER FROM ICU,DOWNGRADE TO MED SURG,REPORT GIVEN BY BETSEY RODRIGUES AT BEDSIDE.ALERT,ORIENTED X2,NO SOB,ABLE TO ANSWER SIMPLE QUESTION.DENIES PAIN DISCOMFORTS.ISOLATION PRECAUTION FOR ESBL/E-COLI IN THE URINE.,ON AMIKIN IV.BED ON LOWEST POSITION AND LOCKED.CALL LIGHT IN REACH,NEEDS ANTICIPATED.
--- NOTE | 2019-03-25 04:10 | NUR ---
MS RN NOTES AMIKIN TROUGH DRAWN AT 2200 WAS HIGH 6.4,DOSE HELD.AMIKIN PEAK DRAWN AT 0016 WAS LOW 5.8.CHARGE NURSE AWARE.
--- NOTE | 2019-03-25 05:30 | NUR ---
MS RN NOTES ACCU-CHECK BLOOD SUGAR CHECK 75,NO INSULIN COVERAGE.APPLE JUICE GIVEN PER PATIENT REQUEST.
[2019-03-25] MEDS: BLOOD SUGAR DIAGNOSTIC 1 EACH STRIP IN SCH ×3 (05:38→17:08)
--- NOTE | 2019-03-25 06:20 | NUR ---
MS RN NOTES NO SIGNIFICANT CHANGE IN STATUS,SLEPT WELL ON BED SINCE SHE WAS TRANSFERRED FROM ICU,NO COMPLAINTS OF PAIN,KEPT WARM AND COMFORTABLE,CALL LIGHT IN REACH,NEEDS ATTENDED.WILL ENDORSE TO DAY NURSE FOR CARMENZA.
[2019-03-25 07:16] LABS: BASOPHILS % (AUTO) 0.5 % (0.0-2.0); EOSINOPHILS % (AUTO) 1.8 % (0.0-6.0); HEMATOCRIT 27 % (33-45); HEMOGLOBIN 8.7 g/dL (11.5-14.8); LYMPHOCYTES # (AUTO) 2.4 /CMM (0.8-4.8); LYMPHOCYTES % (AUTO) 25.3 % (20.0-44.0); MEAN CORPUSCULAR HGB CONC 32 g/dl (31.0-36.0); MEAN CORPUSCULAR VOLUME 77 fL (82-100); MONOCYTES # (AUTO) 0.9 /CMM (0.1-1.30); MONOCYTES % (AUTO) 9.5 % (2.0-12.0); NEUTROPHILS % (AUTO) 62.9 % (43.0-81.0); PLATELET COUNT (AUTO) 312 /CMM (150-450); RED BLOOD CELL COUNT(AUTO) 3.51 MIL/uL (4.0-5.2); WHITE BLOOD COUNT (AUTO) 9.5 K/uL (4.3-11.0)
[2019-03-25 07:30] LABS: CALCIUM, SERUM 8.2 mg/dL (8.5-10.1); CREATININE 0.8 mg/dL (0.6-1.3); MAGNESIUM 1.8 mg/dL (1.8-2.4); PHOSPHORUS 3.5 mg/dL (2.5-4.9); POTASSIUM 3.5 mmol/L (3.5-5.1)
--- NOTE | 2019-03-25 07:39 | NUR ---
MS RN OPENING NOTES PATIENT SLEEPING IN BED BUT EASY TO AWAKEN. BED ALARM ON AND SET IN LOW FOWLERS POSITION. PATIENT IN CONTACT ISOLATION (ESBL/ECOLI URINE). ON ROOM AIR. NO SIGNS OF ACUTE RESPIRATORY DISTRESS AND NO COMPLAINTS OF PAIN. CALL LIGHT WITHIN REACH. WILL CONTINUE TO MONITOR.
[2019-03-25] MEDS: PANTOPRAZOLE 40 MG VIAL IV SCH (08:40)
[2019-03-25] MEDS: HEPARIN SODIUM, PORCINE 5000 UNITS/1 ML VIAL SQ SCH ×2 (08:41→20:28)
--- NOTE | 2019-03-25 10:23 | NUR ---
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 RECOMMENDATIONS MADE FOR SKIN PROTECTION AND WOUND CARE. DISCUSSED WITH NURSING STAFF. PT ABLE TO ASSIST WITH TURNING AND REPOSITIONING IN BED. LOW AIRLOSS BED TO BE PLACED (ISOFLEX). WILL SEE PRN. WAGNER IN AGREEMENT WITH PLAN OF CARE. Addendum: 03/25/19 at 1025 by NIEVES POLANCO WNDNU Amended: Links added.
[2019-03-25] MEDS ORDERED: HYDROGEL DRESSING 90 GM TUBE TP PRN (10:30)
[2019-03-25] MEDS ORDERED: RXAMI XX (12:32)
[2019-03-25] MEDS: HYDROGEL DRESSING 90 GM TUBE TP SCH ×2 (13:50→15:38)
[2019-03-25] MEDS ORDERED: AMIKACIN 300 MG in IV D5W 100 ML IV SCH (15:00)
--- NOTE | 2019-03-25 16:02 | NUR ---
MS RN NOTES CALLED PATIENT'S BROTHER, LUIS MIGUEL RAJPUT, INFORMING HIM ABOUT DISCHARGE BACK TO [facility]. NO ANSWER, LEFT MESSAGE.
[2019-03-25] MEDS: INSULIN REGULAR, HUMAN 100 UNIT/ML 3 ML VIAL SQ PRN (17:10)
--- NOTE | 2019-03-25 18:18 | NUR ---
MS RN CLOSING NOTES PATIENT RESTING IN BED. NO COMPLAINTS OF PAIN OR ACUTE RESPIRATORY DISTRESS. DISCHARGE ORDERS IN PLACE AND READY. REPORT GIVEN TO RN AT [facility]. CALL LIGHT WITHIN PATIENT'S REACH. WILL ENDORSE TO [employer]ET [employer]OCK INSTALLATION HELPER NURSE DISCHARGE PLANS.
--- NOTE | 2019-03-25 20:01 | NUR ---
MS RN OPENING NOTES PATIENT RECEIVED CURRENTLY RESTING IN BED. NO COMPLAINTS OF PAIN, SOB, OR ACUTE DISTRESS NOTED. AWAITING DISCHARGE. WILL CONTINUE TO MONITOR.
--- NOTE | 2019-03-25 20:36 | NUR ---
VARNISH MIXER NOTES PATIENT PICKED UP VIA [facility] TO GO TO [facility]. PATIENT A/O x4 MEDICALLY STABLE WITH NO COMPLAINTS OF PAIN, NO SOB, OR NO ACUTE DISTRESS NOTED. IV LOCATED ON LEFT FA WAS REMOVED WITH LITTLE TO NO BLEEDING, WELL ID BAND WAS REMOVED. HEPARIN WAS GIVEN BEFORE DISCHARGE. BLOOD SUGAR WAS 169 NO COVERAGE WAS GIVEN IT APPEARS SHE TRENDS DOWN.
== END 2019-03-25 20:40 | DRG 871 ==
LOC: ER 21:04 → ICU 23:23 → MED 03-25 01:06
PROVIDERS: ADMIT Hospitalist; ATTEND Internal Medicine
PROC: 02HV33Z Insertion of Infusion Device into Superior Vena Cava, Percutaneous Approach (ICD-10-PCS; principal; 2019-03-21)
PROC: B548ZZA Ultrasonography of Superior Vena Cava, Guidance (ICD-10-PCS; 2019-03-21)
DX: A41.9 Sepsis, unspecified organism (principal); R65.21 Severe sepsis with septic shock; E43 Unspecified severe protein-calorie malnutrition; G93.41 Metabolic encephalopathy; N17.0 Acute kidney failure with tubular necrosis; N39.0 Urinary tract infection, site not specified; Z16.12 Extended spectrum beta lactamase (ESBL) resistance; E87.2 Acidosis; D50.9 Iron deficiency anemia, unspecified; E03.9 Hypothyroidism, unspecified; I12.9 Hypertensive chronic kidney disease with stage 1 through stage 4 chronic kidney disease, or unspecified chronic kidney disease; Z79.4 Long term (current) use of insulin; M19.90 Unspecified osteoarthritis, unspecified site; I25.10 Atherosclerotic heart disease of native coronary artery without angina pectoris; E88.09 Other disorders of plasma-protein metabolism, not elsewhere classified; E11.40 Type 2 diabetes mellitus with diabetic neuropathy, unspecified; Z87.440 Personal history of urinary (tract) infections; L53.8 Other specified erythematous conditions; Z68.27 Body mass index [BMI] 27.0-27.9, adult; B96.20 Unspecified Escherichia coli [E. coli] as the cause of diseases classified elsewhere; E87.6 Hypokalemia; R13.10 Dysphagia, unspecified; E11.22 Type 2 diabetes mellitus with diabetic chronic kidney disease; N18.9 Chronic kidney disease, unspecified
CPT/HCPCS: 36415; 36569; 71045-TC; 80048-TC; 80053-TC; 80061-TC; 80076-TC; 80150; 81000-TC; 82962-TC; 83540-TC; 83605-TC; 83735-TC; 84100-TC; 84439-TC; 84443-TC; 84484-TC; 85025-TC; 85730-TC; 86850-TC; 87040-TC; 87081-TC; 87086-TC; 87186-TC; 92611-TC; 93307-TC; 97112-TC; 97530-TC; A6248; C1751; C9113; G0378; J0278; J1644; J1815; J2543; J3475; J3480; J7030; J7050; J7060; P9047

== ENCOUNTER 2024-07-04 21:32 | Inpatient (IN) | payer MEDICARE ==
[~2024-07-04] VITALS: Ht 170.2 cm; Wt 82.1 kg
[~2024-07-04 21:32] MED LIST changes: -ASCO500T9 PO; +BLOO-668 IN; +MAGN400O21 PO; -MULT-661 PO; -NUT.237L45 PO; -PROT946L PO; -RAMI2.5C2 PO; +RAMI2.5C55 PO; +RXAMI XX; +SENN-261 PO; -TYL2T PO
[2024-07-04] MEDS: IV NS 0.9% 1,000 ML BAG IV ONE (22:30)
[2024-07-04 22:33] LABS: BASOPHILS # (AUTO) 0.1 K/uL (0.0-0.2); BASOPHILS % (AUTO) 0.6 % (0.0-2.0); EOSINOPHILS # (AUTO) 0.2 K/uL (0.0-0.7); EOSINOPHILS % (AUTO) 1.9 % (0.0-6.0); HEMATOCRIT 35 % (33-45); HEMOGLOBIN 11.5 g/dL (11.5-14.8); LYMPHOCYTES # (AUTO) 1.4 K/uL (0.8-4.8); LYMPHOCYTES % (AUTO) 13.1 % (20.0-44.0); MEAN CORPUSCULAR HEMOGLOBIN 26 PG (26.0-33.0); MEAN CORPUSCULAR HGB CONC 32 g/dl (31.0-36.0); MEAN CORPUSCULAR VOLUME 81 fL (82-100); MONOCYTES % (AUTO) 9.6 % (2.0-12.0); NEUTROPHILS # (AUTO) 7.9 K/uL (1.8-8.9); NEUTROPHILS % (AUTO) 74.8 % (43.0-81.0); PLATELET COUNT (AUTO) 443 K/uL (150-450); RED BLOOD CELL COUNT(AUTO) 4.35 MIL/uL (4.0-5.2); RED CELL DISTRIBUTION WIDTH 19.3 % (11.5-15.0); WHITE BLOOD COUNT (AUTO) 10.6 K/uL (4.3-11.0)
[2024-07-04 22:47] LABS: CALCIUM, SERUM 8.3 mg/dL (8.5-10.1); CREATININE 1.7 mg/dL (0.6-1.3)
[2024-07-04 23:18] LABS: APPEARANCE,URINE CLOUDY (CLEAR); BILIRUBIN,URINE NEGATIVE (NEGATIVE); BLOOD, URINE 2+ Ery/uL (NEGATIVE); COLOR,URINE YELLOW (YELLOW); KETONES,URINE NEGATIVE (NEGATIVE); LEUKOCYTE ESTERASE ,URINE 3+ (NEGATIVE); NITRITE, URINE NEGATIVE (NEGATIVE); PROTEIN,URINE 2+ mg/dl (NEGATIVE); UGLUCOSE NEGATIVE (NEGATIVE); UROBILINOGEN,URINE 0.2 EU/dL (0.2)
[2024-07-04 23:24] LABS: ADD URINE CULTURE YES; BACTERIA,URINE Many /HPF (None Seen); RBC,URINE TOO NUMEROUS TO COUN /HPF (0-2); SQUAMOUS EPITHELIAL CELL,UR Rare /HPF (None Seen); WBC,URINE TOO NUMEROUS TO COUN /HPF (0-3)
[2024-07-04 23:25] LABS: TRIPLE PHOSPHATE CRYSTAL,UR Rare /HPF (None Seen)
[2024-07-04] MEDS: CEFTRIAXONE 1GM BAG (ER ONLY) 1 GM/50 ML PIGGYBACK IV ONE (23:30)
[2024-07-04] MEDS ORDERED: CEFTRIAXONE 1GM BAG (ER ONLY) 50 ML IV ONE (23:32)
[2024-07-05] MEDS ORDERED: MAGNESIUM HYDROXIDE 30 ML UDC PO PRN (00:30)
[2024-07-05] MEDS ORDERED: MAG HYDROX/AL HYDROX/SIMETH 30 ML UDC PO PRN (00:30)
[2024-07-05] MEDS ORDERED: ONDANSETRON HCL/PF 4 MG/2 ML VIAL IVP PRN (00:30)
[2024-07-05] MEDS ORDERED: ZOLPIDEM TARTRATE 5 MG TABLET PO PRN (00:30)
[2024-07-05 01:45] VITALS: BP 103/60; TEMP 97.7; O2SAT 96
[2024-07-05] MEDS: IV NS 0.9% 1,000 ML IV PRN (02:37)
[2024-07-05] MEDS: PANTOPRAZOLE 40 MG TABLET.DR PO SCH (06:39)
[2024-07-05] MEDS ORDERED: LEVO75TA7 PO (07:38)
[2024-07-05] MEDS ORDERED: SERT50TA12 PO (07:38)
[2024-07-05] MEDS ORDERED: POLY15DR17 EACHEYE (07:38)
[2024-07-05] MEDS ORDERED: INSU100I30 SQ (07:38)
[2024-07-05] MEDS ORDERED: CYCL30DR EACHEYE (07:38)
[2024-07-05] MEDS ORDERED: ACET325T53 PO (07:38)
[2024-07-05] MEDS ORDERED: CRAN300T PO (07:38)
[2024-07-05] MEDS ORDERED: MULT-213 PO (07:38)
[2024-07-05] MEDS ORDERED: ZINC PO (07:38)
[2024-07-05] MEDS ORDERED: ASCO500T10 PO (07:38)
[2024-07-05 08:43] VITALS: BP 103/70; TEMP 97.5; O2SAT 96
[2024-07-05] MEDS: CEFTRIAXONE 1 G in IV D5W 50 ML IV SCH (08:59)
[2024-07-05] MEDS: INSULIN GLARGINE, 100 UNIT/ML CARTRIDGE SQ SCH (09:00)
[2024-07-05] MEDS: HEPARIN SODIUM, PORCINE 5000 UNITS/1 ML VIAL SQ SCH (09:00)
[2024-07-05] MEDS ORDERED: Medication Not On Formulary EA (Cyclosporine (Restasis) 1 DROP) EACHEYE SCH (09:00)
[2024-07-05] MEDS ORDERED: DEXTROSE 50%-WATER 50 ML DISP.SYRIN IV PRN (09:00)
[2024-07-05] MEDS: BLOOD SUGAR DIAGNOSTIC 1 EACH STRIP VI SCH (09:00)
[2024-07-05] MEDS: LEVOTHYROXINE SODIUM 75 MCG TABLET PO SCH (09:23)
[2024-07-05] MEDS: SERTRALINE HCL 50 MG TABLET PO SCH (09:23)
[2024-07-05 12:13] VITALS: BP 101/61; TEMP 97.4; O2SAT 95
[2024-07-05] MEDS: POLYVINYL ALCOHOL 15 ML BOTTLE EACHEYE SCH (13:06)
[2024-07-05] MEDS: Z GUARD REMEDY 4 OZ OINT TP PRN (13:07)
[2024-07-05 16:04] VITALS: BP 108/65; TEMP 97.7; O2SAT 96
[2024-07-05] MEDS: GLUCERNA SHAKE 237 ML CAN PO SCH (17:00)
[2024-07-05 20:00] VITALS: BP 109/59; TEMP 97.4; TEMP 97.9; O2SAT 89; O2SAT 96
[2024-07-05] MEDS: PREGABALIN 25 MG CAPSULE PO SCH (21:51)
[2024-07-05] MEDS: *INSULIN REGULAR(HUMULIN R)HUM 100 UNIT/ML VIAL SQ PRN (22:34)
[2024-07-06] VITALS: BP 101/89; TEMP 98.2; O2SAT 97
[2024-07-06 04:00] VITALS: BP 131/63; TEMP 97.9; O2SAT 98
[2024-07-06 08:11] LABS: BASOPHILS # (AUTO) 0.1 K/uL (0.0-0.2); BASOPHILS % (AUTO) 0.7 % (0.0-2.0); EOSINOPHILS # (AUTO) 0.2 K/uL (0.0-0.7); EOSINOPHILS % (AUTO) 2.8 % (0.0-6.0); HEMATOCRIT 33 % (33-45); HEMOGLOBIN 10.5 g/dL (11.5-14.8); LYMPHOCYTES # (AUTO) 1.3 K/uL (0.8-4.8); LYMPHOCYTES % (AUTO) 16.9 % (20.0-44.0); MEAN CORPUSCULAR HEMOGLOBIN 27 PG (26.0-33.0); MEAN CORPUSCULAR HGB CONC 32 g/dl (31.0-36.0); MEAN CORPUSCULAR VOLUME 82 fL (82-100); MONOCYTES % (AUTO) 12.8 % (2.0-12.0); NEUTROPHILS # (AUTO) 5.1 K/uL (1.8-8.9); NEUTROPHILS % (AUTO) 66.8 % (43.0-81.0); PLATELET COUNT (AUTO) 360 K/uL (150-450); RED BLOOD CELL COUNT(AUTO) 3.98 MIL/uL (4.0-5.2); RED CELL DISTRIBUTION WIDTH 19.5 % (11.5-15.0); WHITE BLOOD COUNT (AUTO) 7.6 K/uL (4.3-11.0)
[2024-07-06 08:30] LABS: CALCIUM, SERUM 7.9 mg/dL (8.5-10.1); CREATININE 1.3 mg/dL (0.6-1.3); MAGNESIUM 1.7 mg/dL (1.8-2.4); PHOSPHORUS 3.6 mg/dL (2.5-4.9); POTASSIUM 3.5 mmol/L (3.5-5.1)
[2024-07-06 08:42] LABS: THYROID STIMULATING HORMONE 0.47 uIU/mL (0.358-3.74)
[2024-07-06] MEDS: MAGNESIUM OXIDE 400 MG TABLET PO ONE (09:44)
[2024-07-06 16:00] VITALS: BP 115/65; TEMP 98.1; O2SAT 98
[2024-07-06 20:00] VITALS: BP 116/68; TEMP 98.4; O2SAT 97
[2024-07-07] VITALS: BP 92/53; TEMP 97.9; O2SAT 95
[2024-07-07 04:00] VITALS: BP 102/59; TEMP 97.5; O2SAT 98
[2024-07-07 07:00] VITALS: BP 89/54; TEMP 97.9; O2SAT 98
[2024-07-07] MEDS: ACETAMINOPHEN 325 MG TABLET PO PRN (14:48)
[2024-07-07 16:00] VITALS: BP 89/50; TEMP 98.2; O2SAT 95
[2024-07-07 20:00] VITALS: BP 95/54; TEMP 97.7; O2SAT 96
[2024-07-08 06:15] LABS: BASOPHILS % (AUTO) 0.6 % (0.0-2.0); EOSINOPHILS # (AUTO) 0.5 K/uL (0.0-0.7); EOSINOPHILS % (AUTO) 5.7 % (0.0-6.0); HEMATOCRIT 30 % (33-45); HEMOGLOBIN 9.7 g/dL (11.5-14.8); LYMPHOCYTES # (AUTO) 1.9 K/uL (0.8-4.8); LYMPHOCYTES % (AUTO) 23.6 % (20.0-44.0); MEAN CORPUSCULAR HEMOGLOBIN 27 PG (26.0-33.0); MEAN CORPUSCULAR HGB CONC 33 g/dl (31.0-36.0); MEAN CORPUSCULAR VOLUME 82 fL (82-100); MONOCYTES # (AUTO) 0.9 K/uL (0.1-1.30); MONOCYTES % (AUTO) 11.3 % (2.0-12.0); NEUTROPHILS # (AUTO) 4.6 K/uL (1.8-8.9); NEUTROPHILS % (AUTO) 58.8 % (43.0-81.0); PLATELET COUNT (AUTO) 326 K/uL (150-450); RED BLOOD CELL COUNT(AUTO) 3.63 MIL/uL (4.0-5.2); RED CELL DISTRIBUTION WIDTH 19.6 % (11.5-15.0); WHITE BLOOD COUNT (AUTO) 7.9 K/uL (4.3-11.0)
[2024-07-08 06:37] LABS: CALCIUM, SERUM 7.6 mg/dL (8.5-10.1); CREATININE 1.2 mg/dL (0.6-1.3); MAGNESIUM 1.8 mg/dL (1.8-2.4); PHOSPHORUS 2.9 mg/dL (2.5-4.9); POTASSIUM 3.2 mmol/L (3.5-5.1)
[2024-07-08] MEDS ORDERED: MEROPENEM 1 G in IV NS 0.9% 100 ML IV SCH (08:30)
[2024-07-08 08:46] VITALS: BP 92/60; TEMP 97.5; O2SAT 96
[2024-07-08] MEDS: MEROPENEM 1 G in IV NS 0.9% 100 ML IV SCH (10:52)
[2024-07-08] MEDS ORDERED: MERO1VIA23 IV (10:52)
== END 2024-07-08 15:59 | DRG 689 ==
LOC: ER 21:56 → MED 07-05 00:37 → TELE 07-05 02:00 → MED 07-07 12:14
PROVIDERS: ADMIT Internal Medicine; ATTEND Internal Medicine
DX: N39.0 Urinary tract infection, site not specified (principal); N17.0 Acute kidney failure with tubular necrosis; R53.2 Functional quadriplegia; E87.1 Hypo-osmolality and hyponatremia; Z16.12 Extended spectrum beta lactamase (ESBL) resistance; R62.7 Adult failure to thrive; E03.9 Hypothyroidism, unspecified; E66.9 Obesity, unspecified; F32.A Depression, unspecified; E83.9 Disorder of mineral metabolism, unspecified; Z66 Do not resuscitate; Z79.4 Long term (current) use of insulin; Z87.440 Personal history of urinary (tract) infections; R53.1 Weakness; Z68.28 Body mass index [BMI] 28.0-28.9, adult; E86.9 Volume depletion, unspecified; B96.20 Unspecified Escherichia coli [E. coli] as the cause of diseases classified elsewhere; E11.40 Type 2 diabetes mellitus with diabetic neuropathy, unspecified; I25.10 Atherosclerotic heart disease of native coronary artery without angina pectoris; B96.89 Other specified bacterial agents as the cause of diseases classified elsewhere; I12.9 Hypertensive chronic kidney disease with stage 1 through stage 4 chronic kidney disease, or unspecified chronic kidney disease; E11.22 Type 2 diabetes mellitus with diabetic chronic kidney disease; N18.9 Chronic kidney disease, unspecified
CPT/HCPCS: 36415; 71045-TC; 80048-TC; 81001; 82962-TC; 83735-TC; 84100-TC; 84443-TC; 85025-TC; 87081-TC; 87086-TC; 87186-TC; 97110-TC; 97530-TC; A4223; G0378; J0696; J1644; J1815; J2185; J7030; J7060

== ENCOUNTER 2024-10-07 16:59 | Inpatient (IN) | payer MEDICARE ==
[~2024-10-07] VITALS: Ht 157.5 cm; Wt 86.2 kg
[~2024-10-07 16:59] MED LIST changes: +ACET325T53 PO; +ASCO500T10 PO; +BETA45CR3 TP; +CRAN300T PO; +CYCL30DR EACHEYE; -INSU100I19 SQ; +INSU100I30 SQ; +KETO15CR2 TP; -LEVO100T PO; +LEVO75TA7 PO; +MERO1VIA23 IV; +MULT-213 PO; +POLY15DR17 EACHEYE; -RAMI2.5C55 PO; -RXAMI XX; -SERT100T PO; +SERT50TA12 PO; +ZINC PO
[2024-10-07] MEDS: IV NS 0.9% 1,000 ML BAG IV ONE (17:24)
[2024-10-07 17:28] LABS: BASOPHILS # (AUTO) 0.1 K/uL (0.0-0.2); BASOPHILS % (AUTO) 0.4 % (0.0-2.0); EOSINOPHILS % (AUTO) 0.1 % (0.0-6.0); HEMATOCRIT 37 % (33-45); HEMOGLOBIN 11.9 g/dL (11.5-14.8); LYMPHOCYTES # (AUTO) 0.3 K/uL (0.8-4.8); LYMPHOCYTES % (AUTO) 1.7 % (20.0-44.0); MEAN CORPUSCULAR HEMOGLOBIN 28 PG (26.0-33.0); MEAN CORPUSCULAR HGB CONC 33 g/dl (31.0-36.0); MEAN CORPUSCULAR VOLUME 85 fL (82-100); MONOCYTES % (AUTO) 6.8 % (2.0-12.0); NEUTROPHILS # (AUTO) 13.7 K/uL (1.8-8.9); PLATELET COUNT (AUTO) 238 K/uL (150-450); RED BLOOD CELL COUNT(AUTO) 4.32 MIL/uL (4.0-5.2); RED CELL DISTRIBUTION WIDTH 14.4 % (11.5-15.0)
[2024-10-07] MEDS: CEFEPIME 1 GM in IV D5W 50 ML IV ONE (17:36)
[2024-10-07 17:37] LABS: CALCIUM, SERUM 8.5 mg/dL (8.5-10.1); CARBON DIOXIDE 26 mmol/L (21-32); CHLORIDE 103 mmol/L (98-107); CREATININE 1.3 mg/dL (0.6-1.3); GLUCOSE 166 mg/dL (74-106); POTASSIUM 4.1 mmol/L (3.5-5.1); SODIUM SERUM 136 mmol/L (136-145); UREA NITROGEN, BLOOD 34 mg/dL (7-18)
[2024-10-07 17:40] LABS: PROTHROMBIN TIME 10.3 SECS (9.2-11.1)
[2024-10-07 17:44] LABS: ALANINE AMINOTRANSFERASE 17 U/L (12-78); ALBUMIN 2.6 g/dL (3.4-5.0); ALKALINE PHOSPHATASE 74 U/L (46-116); ASPARTATE AMINOTRANSFERASE 21 U/L (15-37); BILIRUBIN,DIRECT 0.2 mg/dL (0.0-0.2); BILIRUBIN,TOTAL 0.4 mg/dL (0.2-1.0); TOTAL PROTEIN, SERUM 7.8 g/dL (6.4-8.2)
[2024-10-07] MEDS: VANCOMYCIN 1 GM in IV D5W 250 ML IV ONE (17:44)
[2024-10-07 17:46] LABS: LACTIC ACID 1.6 mmol/L (0.4-2.0)
[2024-10-07] MEDS ORDERED: ACETAMINOPHEN ES 500 MG TABLET ONE (17:57)
[2024-10-07 18:09] LABS: APPEARANCE,URINE CLEAR (CLEAR); BILIRUBIN,URINE Negative (NEGATIVE); BLOOD, URINE Large Ery/uL (NEGATIVE); COLOR,URINE YELLOW (YELLOW); KETONES,URINE Negative (NEGATIVE); LEUKOCYTE ESTERASE ,URINE Small (NEGATIVE); PROTEIN,URINE 100 mg/dl (NEGATIVE); UGLUCOSE Negative (NEGATIVE); UROBILINOGEN,URINE 0.2 EU/dL (0.2)
[2024-10-07 18:10] LABS: NITRITE, URINE POSITIVE (NEGATIVE)
[2024-10-07 18:12] LABS: ADD URINE CULTURE YES; BACTERIA,URINE 1+ /HPF (None Seen); RBC,URINE 21-50 /HPF (0-2); SQUAMOUS EPITHELIAL CELL,UR Moderate /HPF (None Seen)
[2024-10-07 18:13] LABS: HYALINE CASTS, URINE Rare /LPF (None Seen); URINE AMORPHOUS PHOSPHATES Few /HPF (None Seen)
[2024-10-07] MEDS: ACETAMINOPHEN ES 500 MG TABLET PO ONE (18:13)
[2024-10-07] MEDS: IV NS 0.9% 500 ML BAG IV ONE (18:53)
[2024-10-07 20:00] VITALS: BP 94/48; TEMP 98.6; O2SAT 99
[2024-10-07] MEDS ORDERED: ACETAMINOPHEN 325 MG TABLET PO PRN (21:00)
[2024-10-07] MEDS ORDERED: ONDANSETRON HCL/PF 4 MG/2 ML VIAL IVP PRN (21:00)
[2024-10-07] MEDS: BETAMETHASONE DIP 0.05% CREAM 15 GM TUBE TP SCH (21:00)
[2024-10-07] MEDS ORDERED: MAG HYDROX/AL HYDROX/SIMETH 30 ML UDC PO PRN (21:00)
[2024-10-07] MEDS ORDERED: MAGNESIUM HYDROXIDE 30 ML UDC PO PRN ×2 (21:00)
[2024-10-07] MEDS ORDERED: BISACODYL SUPP (10 MG) 10 MG/SUPP.RECT SUPP.RECT RC PRN (21:00)
[2024-10-07] MEDS ORDERED: NA PHOS,M-B/NA PHOS,DI-BA 1 EA ENEMA RC PRN (21:00)
[2024-10-07] MEDS: KETOCONAZOLE 2% CREAM 15 GM TUBE TP SCH (21:00)
[2024-10-07] MEDS: IV NS 0.9% 1,000 ML IV SCH (21:32)
[2024-10-07] MEDS: ENOXAPARIN SODIUM 40 MG/0.4 ML DISP.SYRIN SQ SCH (21:32)
[2024-10-07] MEDS: SENNOSIDES 8.6 MG TABLET PO SCH (21:33)
[2024-10-07] MEDS: PREGABALIN 25 MG CAPSULE PO SCH (21:37)
[2024-10-07] MEDS: INSULIN GLARGINE, 100 UNIT/ML CARTRIDGE SQ SCH (21:56)
[2024-10-07] MEDS: BLOOD SUGAR DIAGNOSTIC 1 EACH STRIP IN SCH (21:56)
[2024-10-07] MEDS ORDERED: SENNOSIDES 8.6 MG TABLET PO SCH (22:00)
[2024-10-07] MEDS ORDERED: DEXTROSE 50%-WATER 50 ML DISP.SYRIN IV PRN (22:00)
[2024-10-08] VITALS: BP 110/64; TEMP 98.4; O2SAT 99
[2024-10-08 04:00] VITALS: BP 120/61; TEMP 98.4; O2SAT 96
[2024-10-08] MEDS ORDERED: CEFEPIME 1 GM VIAL ONE (05:24)
[2024-10-08] MEDS: CEFEPIME 1 GM in IV D5W 50 ML IV ONE ×2 (05:28→08:18)
[2024-10-08] MEDS: INSULIN REGULAR, HUMAN 100 UNIT/ML 3 ML VIAL SQ PRN (06:45)
[2024-10-08 06:50] LABS: BASOPHILS % (AUTO) 0.4 % (0.0-2.0); EOSINOPHILS % (AUTO) 0.1 % (0.0-6.0); HEMATOCRIT 34 % (33-45); HEMOGLOBIN 10.8 g/dL (11.5-14.8); LYMPHOCYTES # (AUTO) 0.3 K/uL (0.8-4.8); LYMPHOCYTES % (AUTO) 1.9 % (20.0-44.0); MEAN CORPUSCULAR HEMOGLOBIN 28 PG (26.0-33.0); MEAN CORPUSCULAR HGB CONC 32 g/dl (31.0-36.0); MEAN CORPUSCULAR VOLUME 86 fL (82-100); MONOCYTES # (AUTO) 0.9 K/uL (0.1-1.30); MONOCYTES % (AUTO) 6.9 % (2.0-12.0); NEUTROPHILS % (AUTO) 90.7 % (43.0-81.0); PLATELET COUNT (AUTO) 205 K/uL (150-450); RED BLOOD CELL COUNT(AUTO) 3.92 MIL/uL (4.0-5.2); RED CELL DISTRIBUTION WIDTH 14.5 % (11.5-15.0); WHITE BLOOD COUNT (AUTO) 13.2 K/uL (4.3-11.0)
[2024-10-08 07:18] LABS: ALBUMIN 2.4 g/dL (3.4-5.0); BILIRUBIN,DIRECT 0.2 mg/dL (0.0-0.2); BILIRUBIN,TOTAL 0.5 mg/dL (0.2-1.0); CALCIUM, SERUM 7.8 mg/dL (8.5-10.1); CREATININE 1.1 mg/dL (0.6-1.3); MAGNESIUM 1.8 mg/dL (1.8-2.4); PHOSPHORUS 3.3 mg/dL (2.5-4.9); POTASSIUM 4.6 mmol/L (3.5-5.1); TOTAL PROTEIN, SERUM 7.2 g/dL (6.4-8.2)
[2024-10-08 08:00] VITALS: BP 100/48; TEMP 97.9; O2SAT 97
[2024-10-08] MEDS: LACTOBACILLUS RHAMNOSUS GG 1 EACH CAP.SPRINK PO SCH (08:07)
[2024-10-08] MEDS: SERTRALINE HCL 50 MG TABLET PO SCH (08:07)
[2024-10-08] MEDS: LEVOTHYROXINE SODIUM 75 MCG TABLET PO SCH (08:08)
[2024-10-08] MEDS: MULTIVIT W/MINERALS 1 TAB TABLET PO SCH (08:08)
[2024-10-08] MEDS ORDERED: Medication Not On Formulary EA (Cyclosporine (Restasis) 1 DROP) EACHEYE SCH (09:00)
[2024-10-08] MEDS ORDERED: Medication Not On Formulary EA (Cranberry Extract (Cranberry) 450 MG) PO SCH (09:00)
[2024-10-08] MEDS: POLYVINYL ALCOHOL 15 ML BOTTLE EACHEYE SCH (09:00)
[2024-10-08] MEDS ORDERED: Z GUARD REMEDY 4 OZ OINT TP PRN (10:00)
[2024-10-08 12:00] VITALS: BP 118/53; TEMP 97.7; O2SAT 97
[2024-10-08] MEDS: Z GUARD REMEDY 4 OZ OINT TP SCH (12:46)
[2024-10-08 16:00] VITALS: BP 132/90; TEMP 98.1; O2SAT 97
[2024-10-08] MEDS: HYDROCODONE/APAP 10/325MG TABLET PO PRN (16:40)
[2024-10-08] MEDS: VANCOMYCIN 1 GM in IV D5W 250 ML IV SCH (16:58)
[2024-10-08 20:00] VITALS: BP 103/53; TEMP 98.2; O2SAT 97
[2024-10-09] VITALS: BP 101/49; TEMP 98.2; O2SAT 98
[2024-10-09 04:00] VITALS: BP 113/54; TEMP 98.2; O2SAT 98
[2024-10-09 06:44] LABS: BASOPHILS % (AUTO) 0.5 % (0.0-2.0); EOSINOPHILS # (AUTO) 0.2 K/uL (0.0-0.7); EOSINOPHILS % (AUTO) 2.7 % (0.0-6.0); HEMATOCRIT 31 % (33-45); HEMOGLOBIN 10.1 g/dL (11.5-14.8); LYMPHOCYTES # (AUTO) 0.6 K/uL (0.8-4.8); LYMPHOCYTES % (AUTO) 8.1 % (20.0-44.0); MEAN CORPUSCULAR HEMOGLOBIN 28 PG (26.0-33.0); MEAN CORPUSCULAR HGB CONC 33 g/dl (31.0-36.0); MEAN CORPUSCULAR VOLUME 85 fL (82-100); MONOCYTES # (AUTO) 0.8 K/uL (0.1-1.30); MONOCYTES % (AUTO) 11.5 % (2.0-12.0); NEUTROPHILS # (AUTO) 5.5 K/uL (1.8-8.9); NEUTROPHILS % (AUTO) 77.2 % (43.0-81.0); PLATELET COUNT (AUTO) 182 K/uL (150-450); RED BLOOD CELL COUNT(AUTO) 3.65 MIL/uL (4.0-5.2); RED CELL DISTRIBUTION WIDTH 14.5 % (11.5-15.0); WHITE BLOOD COUNT (AUTO) 7.1 K/uL (4.3-11.0)
[2024-10-09 06:49] LABS: ALBUMIN 2.2 g/dL (3.4-5.0); BILIRUBIN,TOTAL 0.4 mg/dL (0.2-1.0); MAGNESIUM 1.9 mg/dL (1.8-2.4); PHOSPHORUS 2.7 mg/dL (2.5-4.9); POTASSIUM 3.7 mmol/L (3.5-5.1); TOTAL PROTEIN, SERUM 6.9 g/dL (6.4-8.2)
[2024-10-09 08:00] VITALS: TEMP 99; O2SAT 95
[2024-10-09] MEDS: CEFEPIME 2 GM in IV D5W 100 ML IV SCH (08:09)
[2024-10-09 12:00] VITALS: BP 110/60; TEMP 97.3; O2SAT 95
[2024-10-09] MEDS: MEROPENEM 1 G in IV NS 0.9% 100 ML IV SCH (12:48)
[2024-10-09 16:00] VITALS: BP 114/80; TEMP 96.8; O2SAT 98
[2024-10-09 20:00] VITALS: BP 103/56; TEMP 97.2; O2SAT 95
[2024-10-09] MEDS: TAMSULOSIN 0.4 MG CAP.SR.24H PO SCH (21:17)
[2024-10-10] VITALS: BP 97/50; TEMP 97.3; O2SAT 97
[2024-10-10 04:00] VITALS: BP 104/50; TEMP 97.9; O2SAT 97
[2024-10-10] MEDS ORDERED: VANCOMYCIN 500 MG VIAL ONE (04:34)
[2024-10-10] MEDS: VANCOMYCIN 1.5 GM in IV D5W 500 ML IV ONE (04:39)
[2024-10-10] MEDS: VANCOMYCIN 1 GM /D5W 250 ML PB IV ONE (05:21)
[2024-10-10 07:51] LABS: CALCIUM, SERUM 8.1 mg/dL (8.5-10.1); CREATININE 1.1 mg/dL (0.6-1.3)
[2024-10-10 08:00] VITALS: BP 102/54; TEMP 99; O2SAT 98
[2024-10-10 08:10] LABS: PTH, INTACT 43 pg/mL (15-65)
[2024-10-10] MEDS: POTASSIUM CHLORIDE 20 MEQ TAB.PRT.SR PO ONE (09:17)
[2024-10-10] MEDS ORDERED: VANCOMYCIN HCL 1.25 GM in IV D5W 250 ML IV SCH (10:00)
[2024-10-10 16:00] VITALS: BP 106/62; TEMP 99; O2SAT 97
[2024-10-10 20:00] VITALS: BP 100/60; TEMP 97.9; O2SAT 96
[2024-10-11] MEDS: ACETAMINOPHEN 325 MG TABLET PO PRN (03:15)
[2024-10-11 04:00] VITALS: BP 98/60; TEMP 97.1; O2SAT 96
[2024-10-11] MEDS: VANCOMYCIN HCL 1.25 GM in IV D5W 250 ML IV SCH (04:00)
[2024-10-11] MEDS: IV NS 0.9% 1,000 ML IV PRN (04:00)
[2024-10-11 04:12] LABS: BASOPHILS % (AUTO) 0.7 % (0.0-2.0); EOSINOPHILS # (AUTO) 0.4 K/uL (0.0-0.7); EOSINOPHILS % (AUTO) 7.6 % (0.0-6.0); HEMATOCRIT 32 % (33-45); HEMOGLOBIN 10.4 g/dL (11.5-14.8); LYMPHOCYTES # (AUTO) 0.9 K/uL (0.8-4.8); LYMPHOCYTES % (AUTO) 16.9 % (20.0-44.0); MEAN CORPUSCULAR HEMOGLOBIN 28 PG (26.0-33.0); MEAN CORPUSCULAR HGB CONC 33 g/dl (31.0-36.0); MEAN CORPUSCULAR VOLUME 85 fL (82-100); MONOCYTES # (AUTO) 0.7 K/uL (0.1-1.30); MONOCYTES % (AUTO) 12.4 % (2.0-12.0); NEUTROPHILS # (AUTO) 3.4 K/uL (1.8-8.9); NEUTROPHILS % (AUTO) 62.4 % (43.0-81.0); PLATELET COUNT (AUTO) 202 K/uL (150-450); RED BLOOD CELL COUNT(AUTO) 3.73 MIL/uL (4.0-5.2); RED CELL DISTRIBUTION WIDTH 14.3 % (11.5-15.0); WHITE BLOOD COUNT (AUTO) 5.4 K/uL (4.3-11.0)
[2024-10-11 04:18] LABS: CALCIUM, SERUM 7.9 mg/dL (8.5-10.1); CREATININE 1.2 mg/dL (0.6-1.3); POTASSIUM 3.5 mmol/L (3.5-5.1)
[2024-10-11 08:00] VITALS: BP 90/58; TEMP 97.9; O2SAT 97
[2024-10-11] MEDS ORDERED: MERO1VIA23 IV (10:41)
[2024-10-11 13:08] VITALS: BP 96/62; TEMP 97.9; O2SAT 97
[2024-10-11 14:11] LABS: *SPE A/G RATIO 0.6 (0.7-1.7); *SPE ALBUMIN 2.3 g/dL (2.9-4.4); *SPE ALPHA-1-GLOBULIN 0.4 g/dL (0.0-0.4); *SPE ALPHA-2-GLOBULIN 0.9 g/dL (0.4-1.0); *SPE GLOBULIN, TOTAL 3.6 g/dL (2.2-3.9); *SPE M-SPIKE Not Observed g/dL (Not Observed); *SPE PROTEIN TOTAL 5.9 g/dL (6.0-8.5); *SPEGAMMA GLOBULIN 1.3 g/dL (0.4-1.8)
== END 2024-10-11 15:42 | DRG 871 ==
LOC: ER 17:03 → TELE-TD 18:32 → TELE1 18:37 → MEDSG1 10-10 09:32
PROVIDERS: ADMIT Nurse Practitioner Family; ATTEND Nurse Practitioner Family
DX: A41.59 Other Gram-negative sepsis (principal); R65.21 Severe sepsis with septic shock; N13.6 Pyonephrosis; Z16.12 Extended spectrum beta lactamase (ESBL) resistance; K80.20 Calculus of gallbladder without cholecystitis without obstruction; B96.89 Other specified bacterial agents as the cause of diseases classified elsewhere; Z66 Do not resuscitate; E86.0 Dehydration; E03.9 Hypothyroidism, unspecified; R79.89 Other specified abnormal findings of blood chemistry; E11.22 Type 2 diabetes mellitus with diabetic chronic kidney disease; E66.9 Obesity, unspecified; I12.9 Hypertensive chronic kidney disease with stage 1 through stage 4 chronic kidney disease, or unspecified chronic kidney disease; N18.9 Chronic kidney disease, unspecified; I25.10 Atherosclerotic heart disease of native coronary artery without angina pectoris; Z68.35 Body mass index [BMI] 35.0-35.9, adult; Z79.890 Hormone replacement therapy; Z79.84 Long term (current) use of oral hypoglycemic drugs; Z79.899 Other long term (current) drug therapy; Z87.442 Personal history of urinary calculi; Z87.440 Personal history of urinary (tract) infections; H04.129 Dry eye syndrome of unspecified lacrimal gland; E87.6 Hypokalemia; F41.9 Anxiety disorder, unspecified; Z79.4 Long term (current) use of insulin; D50.9 Iron deficiency anemia, unspecified; R13.10 Dysphagia, unspecified; I45.10 Unspecified right bundle-branch block
CPT/HCPCS: 36415; 71045-TC; 76770-TC; 80048-TC; 80053-TC; 80076-TC; 80202-TC; 81001; 82550-TC; 82962-TC; 83605-TC; 83735-TC; 83880; 83970; 84100-TC; 84155; 84165; 84443-TC; 84484-TC; 85025-TC; 85730-TC; 87040-TC; 87081-TC; 87086-TC; 87186-TC; A4223; G0378; J0692; J1650; J1815; J2185; J3370; J3371; J7030; J7042; J7060

== ENCOUNTER 2025-03-04 19:20 | Inpatient (IN) | payer MEDICARE ==
[~2025-03-04] VITALS: Ht 157.5 cm; Wt 88.0 kg
[~2025-03-04 19:20] MED LIST changes: -ASCO500T10 PO; -BLOO-668 IN; -NA P133E RC; -ZINC PO
[2025-03-04 20:13] LABS: PLATELET COUNT (AUTO) 259 K/uL (150-450); RED BLOOD CELL COUNT(AUTO) 4.63 MIL/uL (4.0-5.2); RED CELL DISTRIBUTION WIDTH 15.9 % (11.5-15.0); WHITE BLOOD COUNT (AUTO) 7.4 K/uL (4.3-11.0)
[2025-03-04 20:20] LABS: SODIUM SERUM 134 mmol/L (136-145)
[2025-03-04 20:21] LABS: CALCIUM, SERUM 8.4 mg/dL (8.5-10.1); CREATININE 1.4 mg/dL (0.6-1.3); UREA NITROGEN, BLOOD 22 mg/dL (7-18)
[2025-03-04 20:23] LABS: INR 0.96 (0.91-1.10)
[2025-03-04 20:28] LABS: LACTIC ACID 1.3 mmol/L (0.4-2.0)
[2025-03-04] MEDS ORDERED: CEFTRIAXONE 1GM BAG (ER ONLY) 50 ML IV ONE (20:33)
[2025-03-04 20:40] LABS: ASPARTATE AMINOTRANSFERASE 12 U/L (15-37); NT-PRO BNP 313 pg/mL (0-125); TOTAL PROTEIN, SERUM 7.9 g/dL (6.4-8.2)
[2025-03-04] MEDS: CEFTRIAXONE 1GM BAG (ER ONLY) 1 GM/50 ML PIGGYBACK IV ONE (20:40)
[2025-03-04] MEDS ORDERED: AZITHROMYCIN 500 MG VIAL ONE (21:04)
[2025-03-04] MEDS: AZITHROMYCIN 500 MG in IV D5W 250 ML IV ONE (21:09)
[2025-03-04] MEDS ORDERED: MAG HYDROX/AL HYDROX/SIMETH 30 ML UDC PO PRN (21:30)
[2025-03-04] MEDS ORDERED: DEXTROSE 50%-WATER 50 ML DISP.SYRIN IV PRN (21:30)
[2025-03-04] MEDS ORDERED: ONDANSETRON HCL/PF 4 MG/2 ML VIAL IVP PRN (21:30)
[2025-03-04] MEDS ORDERED: MAGNESIUM HYDROXIDE 30 ML UDC PO PRN (21:30)
[2025-03-04] MEDS: IV NS 0.9% 1,000 ML IV SCH (23:32)
[2025-03-04] MEDS: BLOOD SUGAR DIAGNOSTIC 1 EACH STRIP IN SCH (23:33)
[2025-03-05] VITALS: BP 126/67; TEMP 98.1; O2SAT 100
[2025-03-05 04:00] VITALS: BP 110/62; TEMP 98.1; O2SAT 94
[2025-03-05] MEDS: ACETAMINOPHEN 325 MG TABLET PO PRN (04:30)
[2025-03-05 06:12] LABS: PLATELET COUNT (AUTO) 230 K/uL (150-450); RED BLOOD CELL COUNT(AUTO) 4.51 MIL/uL (4.0-5.2); RED CELL DISTRIBUTION WIDTH 15.9 % (11.5-15.0); WHITE BLOOD COUNT (AUTO) 9.0 K/uL (4.3-11.0)
[2025-03-05 06:28] LABS: CALCIUM, SERUM 8.2 mg/dL (8.5-10.1); CREATININE 1.3 mg/dL (0.6-1.3); PHOSPHORUS 3.0 mg/dL (2.5-4.9); SODIUM SERUM 141.0 mmol/L (136-145); UREA NITROGEN, BLOOD 19.0 mg/dL (7-18)
[2025-03-05] MEDS ORDERED: NA P133E RC (08:16)
[2025-03-05] MEDS ORDERED: IPRA3AMP23 IH (08:16)
[2025-03-05] MEDS ORDERED: DOCU100C36 PO (08:16)
[2025-03-05] MEDS ORDERED: FURO40TA5 PO (08:16)
[2025-03-05] MEDS ORDERED: MAG30ORA PO (08:16)
[2025-03-05] MEDS ORDERED: Z GUARD REMEDY 4 OZ OINT TP PRN (09:00)
[2025-03-05] MEDS: INSULIN REGULAR, HUMAN 100 UNIT/ML 3 ML VIAL SQ PRN (09:01)
[2025-03-05] MEDS: Z GUARD REMEDY 4 OZ OINT TP SCH (09:02)
[2025-03-05 12:00] VITALS: BP 115/68; TEMP 98; O2SAT 96
[2025-03-05 16:00] VITALS: BP 114/91; TEMP 97.3; O2SAT 95
[2025-03-05 20:00] VITALS: BP 137/63; TEMP 97.7; O2SAT 98
[2025-03-05] MEDS: CEFTRIAXONE 1 G in IV D5W 50 ML IV SCH (20:52)
[2025-03-05] MEDS: AZITHROMYCIN 500 MG in IV D5W 250 ML IV SCH (21:58)
[2025-03-06 04:00] VITALS: BP 122/100; TEMP 97.7
[2025-03-06 08:00] VITALS: BP 110/75; TEMP 97.4; O2SAT 97
[2025-03-06 16:00] VITALS: BP 95/75; TEMP 97.6; O2SAT 97
[2025-03-06 20:00] VITALS: BP 148/77; TEMP 97.5; O2SAT 97
[2025-03-07 04:05] VITALS: BP 113/57; TEMP 98.2; O2SAT 94
[2025-03-07 06:12] LABS: PLATELET COUNT (AUTO) 232 K/uL (150-450); RED BLOOD CELL COUNT(AUTO) 4.48 MIL/uL (4.0-5.2); RED CELL DISTRIBUTION WIDTH 15.8 % (11.5-15.0); WHITE BLOOD COUNT (AUTO) 8.8 K/uL (4.3-11.0)
[2025-03-07 06:26] LABS: CALCIUM, SERUM 8.3 mg/dL (8.5-10.1); CREATININE 1.1 mg/dL (0.6-1.3); SODIUM SERUM 141.0 mmol/L (136-145); UREA NITROGEN, BLOOD 12.0 mg/dL (7-18)
[2025-03-07] MEDS ORDERED: AZIT500T4 PO (08:37)
[2025-03-07] MEDS: POTASSIUM CHLORIDE 20 MEQ TAB.PRT.SR PO ONE (10:08)
[2025-03-07] MEDS ORDERED: AZITHROMYCIN 250 MG TABLET PO SCH (21:00)
== END 2025-03-07 15:05 | DRG 193 ==
LOC: ER 19:30 → TELE1 21:08 → MEDSG1 22:19
PROVIDERS: ATTEND Internal Medicine
DX: J15.9 Unspecified bacterial pneumonia (principal); N17.0 Acute kidney failure with tubular necrosis; E44.0 Moderate protein-calorie malnutrition; D68.59 Other primary thrombophilia; E87.1 Hypo-osmolality and hyponatremia; E88.09 Other disorders of plasma-protein metabolism, not elsewhere classified; I12.9 Hypertensive chronic kidney disease with stage 1 through stage 4 chronic kidney disease, or unspecified chronic kidney disease; N18.9 Chronic kidney disease, unspecified; E03.9 Hypothyroidism, unspecified; E11.22 Type 2 diabetes mellitus with diabetic chronic kidney disease; E66.9 Obesity, unspecified; D64.9 Anemia, unspecified; N13.9 Obstructive and reflux uropathy, unspecified; Z74.01 Bed confinement status; Z87.442 Personal history of urinary calculi; Z79.4 Long term (current) use of insulin; Z87.440 Personal history of urinary (tract) infections; I25.10 Atherosclerotic heart disease of native coronary artery without angina pectoris; Z20.822 Contact with and (suspected) exposure to COVID-19; Z68.35 Body mass index [BMI] 35.0-35.9, adult; E83.89 Other disorders of mineral metabolism
CPT/HCPCS: 36415; 71045-TC; 76770-TC; 80048-TC; 80076-TC; 82962-TC; 83605-TC; 83735-TC; 83880; 84100-TC; 84443-TC; 84484-TC; 85025-TC; 85730-TC; 87040-TC; 87081-TC; A4223; G0378; J0456; J0696; J1815; J7030; J7060